=== PATIENT | female | born 1960 | race Caucasian/White ===

== ENCOUNTER → 2016-07-13 | Outpatient (CLI) | payer OTHER ==
[~2016-07-13] MED LIST: /AUGM875TA OR; ACET65TA OR; IBUP600T OR; INTERFERON; NICORETTE PO; RIBAPOW11 PO
--- NOTE | 2016-07-14 02:15 | REP ---
Clinical: Trauma. Technique: AP, lateral, bilateral oblique views. Findings: The osseous structures and joint spaces are intact and relatively normal for age. Mild degenerative changes involving the interphalangeal joints predominantly in the PIP and DIP as well as third and fourth PIP joints noted. There is no evidence for acute fracture or dislocation. Surrounding soft tissues are unremarkable. No subcutaneous emphysema or radiodense foreign body. Impression: No acute or obvious healed fracture or dislocation. Mild degenerative changes suggested involving the interphalangeal joints. Signed by Matthew Roberto MD 07/14/2016 02:07 A
== END ==
LOC: M WUC 12:16
PROVIDERS: ATTEND Family Medicine
DX: M79.642 Pain in left hand (principal)

== ENCOUNTER → 2016-07-17 | Outpatient (CLI) | payer OTHER ==
--- NOTE | 2016-07-17 09:20 | REPMRS ---
Patient History The patient states she has not had a clinical breast exam in over a year. Patient is postmenopausal. No known family history of cancer. Took hormonal contraceptives for 10 years. Digital Woman Screen Mammo: July 17, 2016 - Exam #: [id number] Bilateral CC and MLO view(s) were taken. Technologist: Dariela Lim, Technologist Prior study comparison: November 24, 2014, digital woman screen mammo performed at [facility]. May 16, 2012, bilateral bilat screen digital mammo, performed at [facility] ([facility] FINDINGS: There are scattered fibroglandular densities. There has been no change in the appearance of the mammogram from the prior studies. There is a mild amount of residual fibroglandular tissue which is fairly symmetric. There is no interval development of dominant mass, architectural distortion, or clustered microcalcification suggestive of malignancy. ASSESSMENT: BI-RADS/ACR category 1 mammogram. Negative. Recommendation Routine screening mammogram in 1 year (for women over age 40). This mammogram was interpreted with the aid of an FDA-approved computer-aided dectection system. Electronically Signed By: Nestor Chance MD 07/17/16 0919
== END ==
LOC: M WHC 08:32
PROVIDERS: ATTEND Family Medicine
DX: Z12.31 Encounter for screening mammogram for malignant neoplasm of breast (principal)

== ENCOUNTER 2016-11-22 06:15 | Emergency (ER) | payer OTHER ==
[~2016-11-22] VITALS: Ht 170.2 cm; Wt 86.0 kg
[2016-11-22 06:33] VITALS: BP 149/70
[2016-11-22] MEDS ORDERED: IBUP-1022 PO (06:48)
[2016-11-22] MEDS ORDERED: AUGM875T28 PO (06:48)
[2016-11-22] MEDS ORDERED: ACETAMINOPHEN TAB 650MG DOSE (2X325MG) PO ONE (07:00)
[2016-11-22] MEDS ORDERED: IBUPROFEN 600 MG TAB PO ONE (07:00)
[2016-11-22] MEDS ORDERED: AUGMENTIN 875 MG TAB PO ONE (07:00)
== END 2016-11-22 07:07 | disposition home or self-care (01) ==
LOC: M ED 06:15
DX: K04.7 Periapical abscess without sinus (principal); F17.200 Nicotine dependence, unspecified, uncomplicated

== ENCOUNTER → 2017-01-16 | Outpatient (CLI) | payer OTHER ==
[~2017-01-16] MED LIST changes: +AUGM875T28 PO; +IBUP-1022 PO
[2017-01-16 18:27] LABS: FREE T4 1.08 NG/DL (0.76-1.46)
== END ==
LOC: M WUC 10:58
PROVIDERS: ATTEND Family Medicine
DX: E32.9 Disease of thymus, unspecified (principal)

== ENCOUNTER → 2017-01-16 | Outpatient (CLI) | payer OTHER ==
[2017-01-16 17:44] LABS: ALBUMIN 4.4 GM/DL (3.2-5.2); ALBUMIN/GLOBULIN RATIO 1.29 (1.00-1.93); ALKALINE PHOSPHATASE 110 U/L (45-117); ALT/SGPT 20 U/L (12-78); ANION GAP 9 MEQ/L (8-16); AST/SGOT 11 U/L (15-37); BILIRUBIN,TOTAL 0.7 MG/DL (0.2-1.0); BLOOD UREA NITROGEN 6 MG/DL (7-18); CALCIUM LEVEL 8.5 MG/DL (8.5-10.1); CARBON DIOXIDE LEVEL 24 MEQ/L (21-32); CHLORIDE LEVEL 109 MEQ/L (98-107); CHOLESTEROL LEVEL 208 MG/DL (<200); CREATININE FOR GFR 0.68 MG/DL (0.55-1.02); GLOMERULAR FILTRATION RATE > 60.0 (>51); GLUCOSE, FASTING 86 MG/DL (70-105); POTASSIUM SERUM 3.9 MEQ/L (3.5-5.1); SODIUM LEVEL 142 MEQ/L (136-145); TOTAL PROTEIN 7.8 GM/DL (6.4-8.2); TRIGLYCERIDES LEVEL 195 MG/DL (<150)
[2017-01-16 18:07] LABS: MEAN CORPUSCULAR HEMOGLOBIN 31.4 pg (27.0-33.0); MEAN CORPUSCULAR HGB CONC 33.8 g/dl (32.0-36.5); MEAN CORPUSCULAR VOLUME 92.9 fl (80.0-96.0); WHITE BLOOD COUNT 9.3 K/mm3 (4.0-10.0)
[2017-01-19 10:32] LABS: HEPATITIS C QUANTITATION HCV Not Detected IU/mL (.)
== END ==
LOC: M WUC 11:01
PROVIDERS: ATTEND Family Medicine
DX: E78.4 Other hyperlipidemia (principal)

== ENCOUNTER → 2017-10-11 | Outpatient (REF) | payer OTHER ==
[2017-10-11 20:07] LABS: HEMATOCRIT 46.4 % (36.0-47.0); HEMOGLOBIN 15.8 g/dl (12.0-15.5); MEAN CORPUSCULAR HEMOGLOBIN 30.9 pg (27.0-33.0); MEAN CORPUSCULAR HGB CONC 34.1 g/dl (32.0-36.5); MEAN CORPUSCULAR VOLUME 90.8 fl (80.0-96.0); PLATELET COUNT, AUTOMATED 211 10^3/uL (150-450); RED BLOOD COUNT 5.11 10^6/uL (4.00-5.40); RED CELL DISTRIBUTION WIDTH 13.1 % (11.5-14.5); WHITE BLOOD COUNT 9.6 10^3/uL (4.0-10.0)
[2017-10-11 20:22] LABS: TOTAL 25(OH) VITAMIN D 10.5 NG/ML (30.0-100.0); VITAMIN B12 LEVEL 411 PG/ML
[2017-10-11 20:38] LABS: ALBUMIN 4.2 GM/DL (3.2-5.2); ALKALINE PHOSPHATASE 109 U/L (45-117); ALT/SGPT 18 U/L (12-78); ANION GAP 10 MEQ/L (8-16); AST/SGOT 11 U/L (7-37); BILIRUBIN,TOTAL 0.5 MG/DL (0.2-1.0); BLOOD UREA NITROGEN 7 MG/DL (7-18); CALCIUM LEVEL 9.2 MG/DL (8.5-10.1); CARBON DIOXIDE LEVEL 26 MEQ/L (21-32); CHLORIDE LEVEL 108 MEQ/L (98-107); CREATININE FOR GFR 0.71 MG/DL (0.55-1.30); FREE T4 0.89 NG/DL (0.76-1.46); GLOMERULAR FILTRATION RATE > 60.0 (>51); GLUCOSE, FASTING 79 MG/DL (70-100); POTASSIUM SERUM 4.1 MEQ/L (3.5-5.1); SODIUM LEVEL 144 MEQ/L (136-145); TOTAL PROTEIN 7.7 GM/DL (6.4-8.2)
[2017-10-12 12:12] LABS: FOLATE 12.2 NG/ML
== END ==
LOC: M SFHCADAM 17:02
DX: I73.9 Peripheral vascular disease, unspecified (principal); G62.9 Polyneuropathy, unspecified; J35.9 Chronic disease of tonsils and adenoids, unspecified
CPT/HCPCS: 82746

== ENCOUNTER → 2017-12-10 | Outpatient (CLI) | payer MEDICAID, OTHER, SELFPAY | LOC: M RAD 12:46 | DX: I70.213 Atherosclerosis of native arteries of extremities with intermittent claudication, bilateral legs (principal); F17.218 Nicotine dependence, cigarettes, with other nicotine-induced disorders | CPT/HCPCS: 93925 ==

== ENCOUNTER → 2018-01-02 | Outpatient (CLI) | payer MEDICAID ==
[~2018-01-02] MED LIST changes: -/AUGM875TA OR; -ACET65TA OR; -AUGM875T28 PO; +HEPARIN 1,000 UNITS/ML 10ML VIAL (FOR RADIOLOGY& DIALYSIS ONLY) As Ordered; -IBUP-1022 PO; -IBUP600T OR; -INTERFERON; +ISOVUE-300 61% 50ML VIAL (Q9967) As Ordered; +MIDAZOLAM INJ 2 MG/2 ML VIAL (J2250) As Ordered; -NICORETTE PO; -RIBAPOW11 PO; +fentaNYL 100 MCG/2 ML INJECTION (J3010) As Ordered
== END ==
LOC: M IRPRO 07:07
DX: Z53.8 Procedure and treatment not carried out for other reasons (principal)

== ENCOUNTER → 2018-01-07 | Outpatient (CLI) | payer MEDICAID ==
[~2018-01-07] MED LIST changes: -HEPARIN 1,000 UNITS/ML 10ML VIAL (FOR RADIOLOGY& DIALYSIS ONLY) As Ordered; -ISOVUE-300 61% 50ML VIAL (Q9967) As Ordered; +ISOVUE-370 76% 100ML VIAL (Q9967) As Ordered; -MIDAZOLAM INJ 2 MG/2 ML VIAL (J2250) As Ordered; -fentaNYL 100 MCG/2 ML INJECTION (J3010) As Ordered
== END ==
LOC: M RAD 13:43
DX: R22.1 Localized swelling, mass and lump, neck (principal)
CPT/HCPCS: Q9967

== ENCOUNTER → 2018-01-31 | Outpatient (CLI) | payer MEDICARE ==
[2018-01-31 19:00] LABS: BASO # 0.1 10^3/uL (0.0-0.2); BASO % 0.3 % (0.0-1.0); HEMATOCRIT 47.3 % (36.0-47.0); HEMOGLOBIN 15.6 g/dl (12.0-15.5); IMMATURE GRANULOCYTE % 0.6 % (0-3.0); LYMPH % 9.9 % (24.0-44.0); MEAN CORPUSCULAR HEMOGLOBIN 30.8 pg (27.0-33.0); MEAN CORPUSCULAR VOLUME 93.5 fl (80.0-96.0); MONO # 1.7 10^3/uL (0.0-0.8); MONO % 8.5 % (0.0-5.0); NEUTROPHILS # 16.4 10^3/uL (1.8-7.7); NEUTROPHILS % 80.7 % (36.0-66.0); PLATELET COUNT, AUTOMATED 221 10^3/uL (150-450); RED BLOOD COUNT 5.06 10^6/uL (4.00-5.40); RED CELL DISTRIBUTION WIDTH 12.9 % (11.5-14.5); WHITE BLOOD COUNT 20.3 10^3/uL (4.0-10.0)
[2018-01-31 19:11] LABS: ALBUMIN 4.4 GM/DL (3.2-5.2); ALBUMIN/GLOBULIN RATIO 1.19 (1.00-1.93); ALKALINE PHOSPHATASE 111 U/L (45-117); ALT/SGPT 19 U/L (12-78); AMYLASE 31 U/L (25-115); ANION GAP 13 MEQ/L (8-16); AST/SGOT 19 U/L (7-37); BILIRUBIN,TOTAL 0.9 MG/DL (0.2-1.0); BLOOD UREA NITROGEN 11 MG/DL (7-18); CALCIUM LEVEL 9.4 MG/DL (8.5-10.1); CARBON DIOXIDE LEVEL 23 MEQ/L (21-32); CHLORIDE LEVEL 102 MEQ/L (98-107); CREATININE FOR GFR 0.74 MG/DL (0.55-1.30); GLOMERULAR FILTRATION RATE > 60.0 (>51); GLUCOSE, FASTING 101 MG/DL (70-100); LIPASE 108 U/L (73-393); POTASSIUM SERUM 4.1 MEQ/L (3.5-5.1); SODIUM LEVEL 138 MEQ/L (136-145); TOTAL PROTEIN 8.1 GM/DL (6.4-8.2)
== END ==
LOC: M WUC 11:55
DX: R50.9 Fever, unspecified (principal)
CPT/HCPCS: 82150

== ENCOUNTER → 2018-02-01 | Outpatient (CLI) | payer MEDICARE ==
[2018-02-01 18:31] LABS: BASO % 0.1 % (0.0-1.0); HEMATOCRIT 44.7 % (36.0-47.0); HEMOGLOBIN 15.1 g/dl (12.0-15.5); IMMATURE GRANULOCYTE % 0.5 % (0-3.0); LYMPH # 1.3 10^3/uL (1.5-4.5); LYMPH % 6.1 % (24.0-44.0); MEAN CORPUSCULAR HEMOGLOBIN 30.7 pg (27.0-33.0); MEAN CORPUSCULAR HGB CONC 33.8 g/dl (32.0-36.5); MEAN CORPUSCULAR VOLUME 90.9 fl (80.0-96.0); MONO # 0.8 10^3/uL (0.0-0.8); MONO % 3.8 % (0.0-5.0); NEUTROPHILS # 18.6 10^3/uL (1.8-7.7); NEUTROPHILS % 89.5 % (36.0-66.0); PLATELET COUNT, AUTOMATED 261 10^3/uL (150-450); RED BLOOD COUNT 4.92 10^6/uL (4.00-5.40); RED CELL DISTRIBUTION WIDTH 12.6 % (11.5-14.5); WHITE BLOOD COUNT 20.7 10^3/uL (4.0-10.0)
[2018-02-01 19:08] LABS: ALBUMIN 4.3 GM/DL (3.2-5.2); ALBUMIN/GLOBULIN RATIO 1.05 (1.00-1.93); ALKALINE PHOSPHATASE 103 U/L (45-117); ALT/SGPT 23 U/L (12-78); ANION GAP 10 MEQ/L (8-16); AST/SGOT 18 U/L (7-37); BILIRUBIN,TOTAL 0.6 MG/DL (0.2-1.0); BLOOD UREA NITROGEN 16 MG/DL (7-18); CALCIUM LEVEL 9.6 MG/DL (8.5-10.1); CARBON DIOXIDE LEVEL 26 MEQ/L (21-32); CHLORIDE LEVEL 103 MEQ/L (98-107); GLOMERULAR FILTRATION RATE > 60.0 (>51); GLUCOSE, FASTING 121 MG/DL (70-100); POTASSIUM SERUM 3.9 MEQ/L (3.5-5.1); SODIUM LEVEL 139 MEQ/L (136-145); TOTAL PROTEIN 8.4 GM/DL (6.4-8.2)
== END ==
LOC: M WUC 12:50
DX: J18.9 Pneumonia, unspecified organism (principal)
CPT/HCPCS: 80053

== ENCOUNTER → 2018-02-04 | Outpatient (CLI) | payer OTHER, MEDICARE ==
[~2018-02-04] MED LIST changes: +ISOVUE-300 61% 50ML VIAL (Q9967) As Ordered; -ISOVUE-370 76% 100ML VIAL (Q9967) As Ordered; +LIDOCAINE 2% MDV 20 ML VIAL As Ordered; +MIDAZOLAM INJ 2 MG/2 ML VIAL (J2250) As Ordered; +fentaNYL 100 MCG/2 ML INJECTION (J3010) As Ordered
== END | disposition home or self-care (01) ==
LOC: M IRPRO 06:29
DX: Z53.8 Procedure and treatment not carried out for other reasons (principal)

== ENCOUNTER → 2018-02-19 | Outpatient (CLI) | payer OTHER ==
[2018-02-19 07:20] LABS: HEMOGLOBIN 14.4 g/dl (12.0-15.5)
== END ==
LOC: M CARPUL 06:35
DX: R91.8 Other nonspecific abnormal finding of lung field (principal)
CPT/HCPCS: 94060

== ENCOUNTER → 2018-02-22 | Outpatient (CLI) | payer OTHER ==
[~2018-02-22] MED LIST changes: +HEPARIN 1,000 UNITS/ML 10ML VIAL (FOR RADIOLOGY& DIALYSIS ONLY) As Ordered
== END | disposition home or self-care (01) ==
LOC: M IRPRO 06:58
DX: I70.211 Atherosclerosis of native arteries of extremities with intermittent claudication, right leg (principal); I73.9 Peripheral vascular disease, unspecified
CPT/HCPCS: 37224

== ENCOUNTER → 2018-03-04 | Outpatient (CLI) | payer OTHER | LOC: M RAD 07:56 | DX: R91.8 Other nonspecific abnormal finding of lung field (principal) | CPT/HCPCS: 71250 ==

== ENCOUNTER → 2018-03-06 | Outpatient (REF) | payer OTHER ==
[2018-03-06 13:24] LABS: PLATELET COUNT, AUTOMATED 247 10^3/uL (150-450)
[2018-03-06 13:34] LABS: INR 1.01; PROTHROMBIN TIME 13.4 SECONDS (12.1-14.4)
[2018-03-06 13:35] LABS: PARTIAL THROMBOPLASTIN TIME 31.3 SECONDS (25.4-37.6)
== END ==
LOC: M LAB REF 12:57
DX: R91.8 Other nonspecific abnormal finding of lung field (principal)
CPT/HCPCS: 85049

== ENCOUNTER → 2018-03-07 | Outpatient (CLI) | payer OTHER ==
[~2018-03-07] MED LIST changes: -HEPARIN 1,000 UNITS/ML 10ML VIAL (FOR RADIOLOGY& DIALYSIS ONLY) As Ordered; -ISOVUE-300 61% 50ML VIAL (Q9967) As Ordered; +LIDOCAINE 1% MDV 20ML VIAL As Ordered; -LIDOCAINE 2% MDV 20 ML VIAL As Ordered; -MIDAZOLAM INJ 2 MG/2 ML VIAL (J2250) As Ordered; -fentaNYL 100 MCG/2 ML INJECTION (J3010) As Ordered
== END ==
LOC: M RADPRO 11:21
DX: C34.92 Malignant neoplasm of unspecified part of left bronchus or lung (principal)
CPT/HCPCS: 32405

== ENCOUNTER → 2018-03-20 | Outpatient (CLI) | payer OTHER | LOC: M RAD 07:37 | DX: I70.301 Unspecified atherosclerosis of unspecified type of bypass graft(s) of the extremities, right leg (principal) | CPT/HCPCS: 93926 ==

== ENCOUNTER 2018-03-28 11:08 | Day surgery (SDC) | payer OTHER ==
[~2018-03-28 11:08] MED LIST changes: -LIDOCAINE 1% MDV 20ML VIAL As Ordered; +LIDOCAINE 1% MDV 20ML VIAL SQ; +MUPIROCIN 2% OINT 22 GM TUBE TOP
[2018-03-28] MEDS: LR 1,000 ML IV (11:55)
[2018-03-28] MEDS ORDERED: HEPARIN SOD (PORCINE) 5000 UNITS/ML VIAL As Ordered (12:19)
[2018-03-28] MEDS ORDERED: PROPOFOL 500 MG/50 ML VIAL As Ordered (12:21)
[2018-03-28] MEDS ORDERED: LIDOCAINE 2% INJ 100 MG/5 ML SDV (FOR ANES.) As Ordered (12:21)
[2018-03-28] MEDS ORDERED: ONDANSETRON 4MG/2ML VIAL (J2405) As Ordered (12:21)
[2018-03-28] MEDS ORDERED: fentaNYL 100 MCG/2 ML INJECTION (J3010) As Ordered (12:21)
[2018-03-28] MEDS ORDERED: dexameTHASONE 4 MG/ML 1ML VIAL (J1100) As Ordered (12:21)
[2018-03-28] MEDS ORDERED: MIDAZOLAM INJ 2 MG/2 ML VIAL (J2250) As Ordered (12:21)
[2018-03-28] MEDS: BUPIVACAINE LIPOSOME/PF 1.3% 20ML VIAL (13.3MG/ML)(EXPAREL)(C9290 PER1MG) As Ordered (14:01)
[2018-03-28] MEDS: LIDOCAINE 1% SDV INJ 30 ML VIAL As Ordered (14:02)
== END 2018-03-28 15:00 | disposition home or self-care (01) ==
LOC: M SDC 11:08
DX: C34.12 Malignant neoplasm of upper lobe, left bronchus or lung (principal); Z45.2 Encounter for adjustment and management of vascular access device; F17.210 Nicotine dependence, cigarettes, uncomplicated; I70.213 Atherosclerosis of native arteries of extremities with intermittent claudication, bilateral legs; Z79.899 Other long term (current) drug therapy; F32.9 Major depressive disorder, single episode, unspecified; F41.9 Anxiety disorder, unspecified
CPT/HCPCS: 36561

== ENCOUNTER → 2018-03-28 | Outpatient (CLI) | payer OTHER, MEDICAID | LOC: M ONCR 07:56 | DX: C34.02 Malignant neoplasm of left main bronchus (principal) | CPT/HCPCS: 99201 ==

== ENCOUNTER 2018-04-01 08:55 | Outpatient (RCR) | payer OTHER ==
[~2018-04-01 08:55] MED LIST changes: +/AUGM875TA OR; +ACET65TA OR; +AUGM875T28 PO; +IBUP-1022 PO; +IBUP600T OR; +INTERFERON; -LIDOCAINE 1% MDV 20ML VIAL SQ; -MUPIROCIN 2% OINT 22 GM TUBE TOP; +NICORETTE PO; +RIBAPOW11 PO; +SERT-155 PO
--- NOTE | 2018-04-02 12:26 | RADONC ---
RADIATION ONCOLOGY SIMULATION NOTE DATE: 04/01/2018 CHART NUMBER: [id number] SIMULATION NOTE: Ms. Turcios was taken to the CT scan for CT simulation of her lung field. CT was accomplished without difficulty or discomfort. Radiation treatment planning is underway and further discussion will be following. An immobilization device was created and was done without difficulty or discomfort. It will be used throughout the course of treatment. I was physically present throughout the course of CT simulation.
--- NOTE | 2018-04-08 10:26 | RADONC ---
RADIATION ONCOLOGY PROGRESS NOTE DATE: 04/04/2018 CHART NUMBER: [id number] DIAGNOSIS: Small cell lung carcinoma. STAGE: Extensive. ECOG PERFORMANCE STATUS: 0 PROGRESS NOTE: Ms. Turcios is a very pleasant, unfortunate, 57-year-old white female with the diagnosis of extensive stage small-cell lung carcinoma, who initially presented to me on 03/28/2018 for discussion of her possible therapeutic options. Since that time, we have undertaken a CT scan of the abdomen and pelvis, which showed multiple low density liver lesions as well as mild periaortic and pericaval retroperitoneal lymphadenopathy. In addition, we ran a treatment planning session to see whether or not we would be able to incorporate her disease volume safely in the thoracic region. We have an MRI of the brain, which was done, which showed no evidence of metastatic disease and a differential lung scan, which was quite favorable to future planning for thoracic consolidative radiation. I called the patient today to discuss the findings of her study and to confirm her appointment with Dr. Lainez, in [place], on Sunday, at 10:30 a.m. I have informed her that she needs to be seen there so that she can initiate chemotherapy without delay. I have asked the patient to contact me following her appointment if she wishes to return here for her systemic therapy and let her know that our medical oncology service has set her up for initiation of treatment on Sunday next week if she so desires. At this time, the patient's primary treatment modality would be systemic therapy, and therefore, I have not set her up for a definitive followup visit in our office. I let her know that once systemic therapy is complete, if they deem her to be a candidate for radiation, they will be referring her back to us for re-consultation, discussion and initiation of treatment planning. The patient has my phone number here and I let her know that we are available to her at anytime if she has any questions or if we could be of any assistance whatsoever. We would be more than glad to see her for any reason in the future. I hope we have been of some benefit to this very pleasant woman. I know she will be in good hands at [facility] and I suspect she will be starting her treatment without delay next week. cc: MD Mecca Gutierrez MD Robert Johnson, MD Lawrence Kramer, MD Regina Wetterhahn, PA-C
== END 2018-04-29 ==
LOC: M ONCR 08:55
PROVIDERS: ATTEND Radiology Radiation Oncology
DX: C34.02 Malignant neoplasm of left main bronchus (principal); C77.1 Secondary and unspecified malignant neoplasm of intrathoracic lymph nodes

== ENCOUNTER → 2018-04-02 | Outpatient (CLI) | payer OTHER ==
[~2018-04-02] MED LIST changes: -/AUGM875TA OR; -ACET65TA OR; -AUGM875T28 PO; +GASTROGRAFIN SOLUTION 30ML (Q9963) As Ordered; -IBUP-1022 PO; -IBUP600T OR; -INTERFERON; +ISOVUE-370 76% 100ML VIAL (Q9967) As Ordered; -NICORETTE PO; -RIBAPOW11 PO; -SERT-155 PO
== END ==
LOC: M RAD 11:22
DX: C34.92 Malignant neoplasm of unspecified part of left bronchus or lung (principal)
CPT/HCPCS: Q9963

== ENCOUNTER → 2018-04-03 | Outpatient (CLI) | payer OTHER ==
[~2018-04-03] MED LIST changes: -GASTROGRAFIN SOLUTION 30ML (Q9963) As Ordered; -ISOVUE-370 76% 100ML VIAL (Q9967) As Ordered; +PROHANCE 279.3MG/ML 15ML VIAL (A9576) As Ordered; +PROHANCE 279.3MG/ML 5ML VIAL (A9576) As Ordered
== END ==
LOC: M RAD 10:21
DX: C34.90 Malignant neoplasm of unspecified part of unspecified bronchus or lung (principal); Z97.8 Presence of other specified devices
CPT/HCPCS: A9576

== ENCOUNTER → 2018-04-04 | Outpatient (CLI) | payer OTHER | LOC: M RAD 09:40 | DX: C34.92 Malignant neoplasm of unspecified part of left bronchus or lung (principal) | CPT/HCPCS: 70553 ==

== ENCOUNTER → 2018-04-25 | Outpatient (CLI) | payer OTHER ==
[~2018-04-25] MED LIST changes: +/AUGM875TA OR; +ACET65TA OR; +AUGM875T28 PO; +IBUP-1022 PO; +IBUP600T OR; +INTERFERON; +NICORETTE PO; -PROHANCE 279.3MG/ML 15ML VIAL (A9576) As Ordered; -PROHANCE 279.3MG/ML 5ML VIAL (A9576) As Ordered; +RIBAPOW11 PO; +SERT-155 PO
[2018-04-25 15:27] LABS: BASO % 0.8 % (0.0-1.0); EOS # 0.1 10^3/uL (0.0-0.50); EOS % 1.3 % (0.0-3.0); HEMATOCRIT 37.7 % (36.0-47.0); HEMOGLOBIN 12.6 g/dl (12.0-15.5); LYMPH # 1.2 10^3/uL (1.5-4.5); LYMPH % 31.4 % (24.0-44.0); MEAN CORPUSCULAR HEMOGLOBIN 30.4 pg (27.0-33.0); MEAN CORPUSCULAR HGB CONC 33.4 g/dl (32.0-36.5); MEAN CORPUSCULAR VOLUME 91.1 fl (80.0-96.0); MONO # 0.2 10^3/uL (0.0-0.8); MONO % 3.8 % (0.0-5.0); NEUTROPHILS # 2.4 10^3/uL (1.8-7.7); NEUTROPHILS % 62.2 % (36.0-66.0); PLATELET COUNT, AUTOMATED 125 10^3/uL (150-450); RED BLOOD COUNT 4.14 10^6/uL (4.00-5.40); WHITE BLOOD COUNT 3.9 10^3/uL (4.0-10.0)
[2018-04-25 15:29] LABS: ALT/SGPT 20 U/L (12-78); BILIRUBIN,TOTAL 0.6 MG/DL (0.2-1.0); BLOOD UREA NITROGEN 14 MG/DL (7-18); CALCIUM LEVEL 8.9 MG/DL (8.5-10.1); CARBON DIOXIDE LEVEL 27 MEQ/L (21-32); CHLORIDE LEVEL 103 MEQ/L (98-107); CREATININE FOR GFR 0.62 MG/DL (0.55-1.30); GLOMERULAR FILTRATION RATE > 60.0 (>51); GLUCOSE, FASTING 93 MG/DL (70-100); SODIUM LEVEL 137 MEQ/L (136-145); TOTAL PROTEIN 7.2 GM/DL (6.4-8.2)
[2018-04-25 15:31] LABS: APPEARANCE, URINE HAZY (CLEAR); BACTERIA, URINE AUTO 1+ (NEGATIVE); BILIRUBIN, URINE AUTO NEGATIVE (NEGATIVE); BLOOD, URINE BLOOD NEGATIVE (NEGATIVE); COLOR, URINE AMBER (YELLOW); GLUCOSE, URINE (UA) AUTO NEGATIVE (NEGATIVE); KETONE, URINE AUTO NEGATIVE (NEGATIVE); LEUKOCYTE ESTERASE, URINE AUTO 3+ (NEGATIVE); MUCUS, URINE SMALL (NEGATIVE); NITRITE, URINE AUTO NEGATIVE (NEGATIVE); PROTEIN, URINE AUTO 1+ mg/dL (NEGATIVE); RBC, URINE AUTO 3 /HPF (0-3); SPECIFIC GRAVITY URINE AUTO 1.025 (1.002-1.035); SQUAMOUS EPITHELIAL CELL UR AU 2 /HPF (0-6); WBC, URINE AUTO 72 /HPF (0-3)
== END ==
LOC: M WUC 13:58
PROVIDERS: ATTEND Nurse Practitioner
DX: C34.90 Malignant neoplasm of unspecified part of unspecified bronchus or lung (principal); R30.0 Dysuria

== ENCOUNTER → 2018-05-03 | Outpatient (REF) | payer OTHER | LOC: M SFHCPLAZ 13:15 | PROVIDERS: ATTEND Nurse Practitioner Family | DX: N90.4 Leukoplakia of vulva (principal) ==

== ENCOUNTER → 2018-05-06 | Outpatient (CLI) | payer OTHER ==
[~2018-05-06] MED LIST changes: +PROHANCE 279.3MG/ML 15ML VIAL (A9576) As Ordered ONE; +PROHANCE 279.3MG/ML 5ML VIAL (A9576) As Ordered ONE
--- NOTE | 2018-05-06 12:06 | REP ---
MRI abdomen and liver without and with IV gadolinium: History: History of small cell lung carcinoma with liver lesions. Comparison CT study April 02, 2018. Comparison PET-CT March 22, 2018. Gadolinium enhancement dose: 17 ml of intravenous Isovue 370 is administered. Technique: Axial and coronal T1 and T2-weighted scans were obtained with sequences including spin echo, fast spin echo, diffusion, in and out of phase, gradient echo and dynamically acquired sequential post contrast images. Findings: MR imaging confirms the presence of multiple T2 hyperintense T1 hypointense focal liver lesions demonstrating contrast enhancement consistent with hepatic metastatic lesions. These are fairly small. The largest measures 14 mm in diameter. No splenic lesion is seen. No pancreatic mass is observed. The gallbladder is surgically absent. Portacaval lymph nodes are seen as on CT study although less well than on the CT images. No renal mass lesion is observed. There is a cyst in the lower pole of the right kidney. Study is otherwise unremarkable. Impression: Multiple left and right lobe hepatic enhancing nodules consistent with metastatic disease. Electronically Signed by Hector Vernon MD 05/06/2018 11:58 A
== END ==
LOC: M RAD 10:22
PROVIDERS: ATTEND Internal Medicine Hematology & Oncology
DX: Z85.118 Personal history of other malignant neoplasm of bronchus and lung (principal); K76.89 Other specified diseases of liver
CPT/HCPCS: 74183; A9576

== ENCOUNTER → 2018-06-12 | Outpatient (CLI) | payer OTHER ==
[~2018-06-12] MED LIST changes: +GASTROGRAFIN SOLUTION 30ML (Q9963) As Ordered ONE; +ISOVUE-370 76% 100ML VIAL (Q9967) As Ordered ONE; -PROHANCE 279.3MG/ML 15ML VIAL (A9576) As Ordered ONE; -PROHANCE 279.3MG/ML 5ML VIAL (A9576) As Ordered ONE
--- NOTE | 2018-06-12 16:15 | REP ---
CT of the chest with IV contrast: Comparison is 03/04/2018. The previous large left hilar mass is no longer identified. The previous large bulky anterior mediastinal adenopathy has almost entirely resolved with only a small residual persisting. The previous 1 cm pleural-based nodule in the right lower lobe is no longer present. The previous irregular pleural-based nodular/five by density in the right upper lobe is unchanged. There are no new nodules or masses. There are no infiltrates or effusions. There is no mediastinal or hilar lymph node enlargement. No axillary lymph node enlargement. Thoracic aorta is unremarkable. Cardiac size is normal. The visualized upper abdominal contents are unremarkable. There is a cholecystectomy. There is no adrenal mass. There are no lytic, blastic or destructive skeletal changes. Impression: The large left hilar mass has resolved. The bulky anterior mediastinal adenopathy has resolved. The right lower lobe pleural-based nodule has resolved. The pleural-based irregular nodular/fibrotic density in the right upper lobe is unchanged. There are no other interval changes. Electronically Signed by Nestor Wakefield MD 06/12/2018 04:06 P
--- NOTE | 2018-06-12 16:24 | REP ---
CT of the abdomen and pelvis with IV and bowel contrast: Comparison is 04/02/2018. There are a few small low density liver lesion, however, these have decreased in number. There is a cholecystectomy. The celiac axis and periaortic/pericaval mild retroperitoneal adenopathy has not significantly changed. The pancreas, spleen, adrenals and kidneys are unremarkable and unchanged. The bowel and mesentery are unchanged., except for mild wall thickening of the sigmoid colon compatible with colitis in the appropriate clinical setting. Pelvis: The bladder, uterus and adnexa are unremarkable. There is no ascites. There is no adenopathy. The pelvic bowel loops are unremarkable. There are no lytic, blastic or destructive skeletal lesions. Impression: The low density liver lesions have decreased in number. The celiac axis and periaortic/pericaval adenopathy has not significantly changed. There are no other significant changes. Electronically Signed by Nestor Wakefield MD 06/12/2018 04:16 P
== END ==
LOC: M RAD 12:30
PROVIDERS: ATTEND Internal Medicine Hematology & Oncology
DX: C34.90 Malignant neoplasm of unspecified part of unspecified bronchus or lung (principal); Z92.21 Personal history of antineoplastic chemotherapy
CPT/HCPCS: 71260; 74177; Q9963; Q9967

== ENCOUNTER → 2018-09-04 | Outpatient (CLI) | payer OTHER ==
[~2018-09-04] MED LIST changes: +EMLA CREAM 5GM (LIDOCAINE/PRILOCAINE) As Ordered ONE
--- NOTE | 2018-09-05 09:48 | REP ---
CT STUDY OF THE CHEST WITH IV CONTRAST: HISTORY: Restaging examinations, small cell lung carcinoma. Status post chemotherapy. Comparison CT studies are reviewed from June 12, 2018 and March 04, 2018. There is a somewhat fibrotic appearing 10 mm density in the right upper lobe anteriorly which is unchanged from both prior studies. There is minimal soft tissue streaking within the left anterior mediastinal fat. This soft tissue streaking is yet again improved when compared with the June 12 2018 prior study. There is no residual mediastinal mass. There is no evidence of recurrent hilar adenopathy or recurrent pulmonary nodule. No pleural effusion is seen. No pericardial effusion is noted. No filling defect is seen in the pulmonary arterial tree. Mild atherosclerotic changes are seen in the thoracic aorta. No adrenal lesion is observed. Gallbladder is surgically absent. On bone window settings, there is no bony destructive lesion seen. IMPRESSION: The neoplastic disease evident in the chest on the March 04, 2018 study has virtually completely regressed. There is a small amount residual streaking in the anterior mediastinal fat along its the left contour, less than a centimeter in thickness. This is shows improvement from June 12, 2018 study. No new abnormality. Electronically Signed by Hector Vernon MD 09/05/2018 01:06 P
--- NOTE | 2018-09-05 10:15 | REP ---
CT abdomen and pelvis with IV and oral contrast: History: Small cell lung carcinoma. Post chemotherapy. Comparison CT studies are reviewed from June 12, 2018 and April 02, 2018. CT contrast dose: 100 mL of intravenous Isovue 370. 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 There are clips in right upper quadrant. There is an arterial vascular stent in the distribution of the right external iliac artery. Previously noted low-density metastatic liver lesions are no longer apparent. No new liver lesion is appreciated. The spleen is normal in size and unchanged in texture. There is a small subcentimeter low density splenic lesion consistent with a cyst unchanged. Upper abdominal lymph nodes are again seen most prominent of which is a periportal lymph node. This measures 12 mm in short axis dimension today, 15-16 mm on April 02, 2018. It is unchanged from the June 12, 2018 study. No new adenopathy is seen. Small normal-sized periaortic lymph nodes are seen unchanged. No new retroperitoneal adenopathy is seen. No pancreatic lesion is seen. The kidneys enhance symmetrically and are morphologically intact. There is a subcentimeter cyst in the lower pole right kidney. Normal appendix is seen. No pelvic mass or adenopathy is observed. No uterine or ovarian abnormality is seen. Urinary bladder is intact. No abdominal wall defect is appreciated. Bone window settings show no bony destructive lesion. There are degenerative changes in the lumbar spine. Impression: Stable celiac axis lymph nodes. Previously noted liver metastatic lesions are resolved by CT. No new evidence of abdominal mass or adenopathy. Electronically Signed by Hector Vernon MD 09/05/2018 01:06 P
== END ==
LOC: M RAD 11:57
PROVIDERS: ATTEND Internal Medicine Hematology & Oncology
DX: Z85.118 Personal history of other malignant neoplasm of bronchus and lung (principal); Z85.05 Personal history of malignant neoplasm of liver
CPT/HCPCS: 71260; 74177; Q9963; Q9967

== ENCOUNTER → 2018-09-05 | Outpatient (CLI) | payer OTHER ==
[~2018-09-05] MED LIST changes: -EMLA CREAM 5GM (LIDOCAINE/PRILOCAINE) As Ordered ONE; -GASTROGRAFIN SOLUTION 30ML (Q9963) As Ordered ONE; -ISOVUE-370 76% 100ML VIAL (Q9967) As Ordered ONE
--- NOTE | 2018-09-06 09:03 | RADONC ---
RADIATION ONCOLOGY CONSULTATION NOTE DATE: 09/05/2018 CHART NUMBER: [id number] DIAGNOSIS: Small cell lung carcinoma. STAGE: Extensive. ECOG PERFORMANCE STATUS: 0. CONSULTATION NOTE: Ms. Turcios is a very pleasant 57-year-old white female with the diagnosis of extensive stage small-cell lung carcinoma who was originally seen by us on March 28, 2018 for discussion of external beam radiation therapy. Since that time the patient was found to have liver metastasis and was seen by Dr. Cynthia Lainez MD in [place] and has initiated systemic therapy consisting of carboplatin plus etoposide plus atezolizumab. The patient has done quite well on her chemotherapy and indeed reports a complete to near complete response to all her tumor sites. She has spoken with Dr. Lainez and is now seeing us to discuss prophylactic cranial irradiation. PAST MEDICAL HISTORY: The patient's past medical history is positive for hepatitis C. ALLERGIES: The patient has no known drug allergies. SOCIAL HISTORY: The patient had smoked one pack of cigarettes per day for 43 years. She does not abuse alcohol. FAMILY HISTORY: The patient's family history is negative for lung cancer or other malignancies. REVIEW OF SYSTEMS: The patient's review of systems is noncontributory. She denies nausea, vomiting, fevers, chills, night sweats, diplopia, headaches, anxiety or depression, anorexia, weight loss, visual disturbances, chest pain, urinary or bowel difficulties, bone pain, or neurological problems. PHYSICAL EXAMINATION: The patient is a well-developed, well-nourished, female in no acute distress. HEENT exam is normocephalic, atraumatic. Extraocular movements are intact. There is no palpable cervical, supraclavicular, infraclavicular, axillary, or inguinal lymphadenopathy present. Lungs are clear to auscultation and percussion. Heart has a regular rate and rhythm. Abdomen is benign with no hepatosplenomegaly, masses, or tenderness. Skeletal examination reveals no tenderness to pressure or percussion of the bony skeleton. Extremities reveal no clubbing, cyanosis, or edema. Neurologic exam is grossly intact, as is the remainder of the physical examination. ASSESSMENT: I had a very lengthy discussion with this patient with regards to prophylactic cranial radiation. We discussed the clinical studies as well as potential benefits and possible acute and chronic sequelae of external beam radiation therapy. We discussed in detail the reasoning behind offering prophylactic cranial irradiation. In addition her last MRI of the brain was done 6 months ago. In light of this I am ordering a new MRI of the brain to be undertaken. In patients with small-cell lung carcinoma as the patient is aware there is a high likelihood of developing brain metastasis. Should there be anything found in the brain the dose and fractionation of radiation would be different than that for prophylactic cranial radiation. Therefore if the patient is considering radiation I wish to evaluate her at this time to make sure there is no evidence of actual metastatic disease. I did explain to the patient that clearly if there are mets present in the brain then this is a clear and easy decision to treat this. If however the patient appears to have achieved a complete response to her treatments and the brain is clear than her decision needs to be made with regards to preventative prophylactic brain radiation. That of course is a more difficult decision and I have reassured the patient that she really cannot make a wrong decision and that the decision is quite personal. I have in addition placed this patient on our list for discussion at our multidisciplinary tumor conference which will be about 2 weeks' time. She is scheduled see Dr. Lainez to further discuss her CT findings of the CTs done yesterday as well as the next steps and prophylactic radiation as well. She is scheduled see Dr. Lainez on August 18. I have scheduled the patient to return to me after her visit with Dr. Lainez as well as her MRI so that she can make the final decision with regards to her treatment options. We are available at anytime to this very pleasant woman in the meantime. Thank you for allowing us to participate in the care of Ms. Turcios, I look forward to working with you closely and will keep you informed as any new decisions as they occur. cc: MD Mecca Gutierrez MD Robert Johnson, MD Lawrence Kramer, MD Regina Wetterhahn, PA-C
== END ==
LOC: M ONCR 08:49
PROVIDERS: ATTEND Radiology Radiation Oncology
DX: C77.1 Secondary and unspecified malignant neoplasm of intrathoracic lymph nodes (principal); C34.02 Malignant neoplasm of left main bronchus

== ENCOUNTER → 2018-12-06 | Outpatient (CLI) | payer OTHER ==
[~2018-12-06] MED LIST changes: +GASTROGRAFIN SOLUTION 30ML (Q9963) As Ordered ONE; +ISOVUE-370 76% 100ML VIAL (Q9967) As Ordered ONE
--- NOTE | 2018-12-06 17:42 | REPVR ---
EXAM: CT Chest With Contrast EXAM DATE/TIME: 12/06/2018 5:17 PM CLINICAL HISTORY: 58 years old, female; Condition or disease; Lung condition and disease; Cancer of the lung; Bilateral; Unspecified; Additional info: Restage lung CA TECHNIQUE: Imaging protocol: Axial computed tomography images of the chest with intravenous contrast. Coronal and sagittal reformatted images were created and reviewed. Radiation optimization: All CT scans at this facility use at least one of these dose optimization techniques: automated exposure control; mA and/or kV adjustment per patient size (includes targeted exams where dose is matched to clinical indication); or iterative reconstruction. Contrast material: ISOVUE 370; Contrast volume: 100 ml; Contrast route: IV COMPARISON: CT Chest with contrast 09/04/2018 1:55 PM FINDINGS: No thoracic aortic aneurysm or dissection. Small mediastinal lymph nodes measure up to 8 mm short axis, unchanged. New occurrence of anterior mediastinal mass to the left of midline measuring 5.3 x 3.6 cm, with craniocaudal measurement of 5.8 cm. This was not present on the CT from 09/04/2018. No other concerning lung lesion. No evidence of hematogenous lung metastases. No adrenal or upper abdominal mass. Gallbladder is surgically absent. Bony structures are unremarkable except for thoracic degenerative disc disease. No pleural effusion or pneumothorax. Pulmonary vascular/interstitial pattern does not suggest active pulmonary edema. No cardiac enlargement or pericardial effusion. No central endobronchial lesion. IMPRESSION: New or recurrent anterior mediastinal mass to the left of midline measuring 5.3 x 3.6 x 5.8 cm, with appearance highly suggestive of malignancy. No other new abnormality. Electronically signed by: Desean Rod On 12/06/2018 17:42:39 PM
--- NOTE | 2018-12-06 17:48 | REPVR ---
EXAM: CT Abdomen and Pelvis With Contrast EXAM DATE/TIME: 12/06/2018 5:17 PM CLINICAL HISTORY: 58 years old, female; Condition or disease; Cancer; Other: Lung; Additional info: Restage lung CA TECHNIQUE: Imaging protocol: Axial computed tomography images of the abdomen and pelvis with intravenous contrast. Coronal and sagittal reformatted images were created and reviewed. Radiation optimization: All CT scans at this facility use at least one of these dose optimization techniques: automated exposure control; mA and/or kV adjustment per patient size (includes targeted exams where dose is matched to clinical indication); or iterative reconstruction. Contrast material: ISOVUE 370;Contrast volume: 100 ml;Contrast route: IV; COMPARISON: CT ABD PELVIS WITH CONTRAST 09/04/2018 1:55 PM FINDINGS: Liver: Liver appears normal with no focal abnormality. Gallbladder and bile ducts: Gallbladder is surgically absent. Pancreas: Pancreas appears normal. No focal mass or peripancreatic inflammation. Spleen: Spleen appears homogeneous without focal mass. Adrenals: Adrenal glands are normal in appearance. Kidneys and ureters: Kidneys appear normal, with no stone, solid mass or hydronephrosis. Stomach and bowel: No evidence of small bowel obstruction. No evidence of acute diverticulitis. Appendix: Normal caliber appendix is identified, with no adjacent inflammation. Intraperitoneal space: No pneumoperitoneum. No abnormal pelvic mass. No omental or peritoneal carcinomatosis. Vasculature: Main portal and splenic veins enhance normally. Atherosclerotic change present in the aorta, without aneurysm. Lymph nodes: No enlarged lymph nodes. No abnormal pelvic sidewall lymph nodes. Bladder: Bladder appears normal. Bones/joints: Bony structures are normal except for lumbar spine degenerative disc changes. Soft tissues: Unremarkable. IMPRESSION: No acute abdominal or pelvic process and no evidence of abdominal or pelvic metastatic disease Electronically signed by: Desean Rod On 12/06/2018 17:48:09 PM
== END ==
LOC: M RAD 15:48
PROVIDERS: ATTEND Internal Medicine Hematology & Oncology
DX: C34.90 Malignant neoplasm of unspecified part of unspecified bronchus or lung (principal)
CPT/HCPCS: 71260; 74177; Q9963; Q9967

== ENCOUNTER → 2018-12-20 | Outpatient (CLI) | payer OTHER ==
[~2018-12-20] MED LIST changes: +CLOP75TA2 PO; -GASTROGRAFIN SOLUTION 30ML (Q9963) As Ordered ONE; -ISOVUE-370 76% 100ML VIAL (Q9967) As Ordered ONE; -SERT-155 PO; +SERT50TA29 PO; +VITA500045 PO
== END ==
LOC: M RAD 18:08
PROVIDERS: ATTEND Internal Medicine Hematology & Oncology
DX: C34.90 Malignant neoplasm of unspecified part of unspecified bronchus or lung (principal); Z53.9 Procedure and treatment not carried out, unspecified reason

== ENCOUNTER → 2018-12-20 | Outpatient (CLI) | payer OTHER ==
--- NOTE | 2018-12-24 15:24 | RADONC ---
RADIATION ONCOLOGY FOLLOWUP NOTE DATE: 12/20/2018 CHART NUMBER: [id number] DIAGNOSIS: Small cell lung carcinoma. STAGE: Extensive. ECOG PERFORMANCE STATUS: 0 CONSULTATION NOTE: Ms. Turcios is a 58-year-old white female with the diagnosis of extensive stage small-cell lung carcinoma who was not treated in this facility and has been undergoing systemic therapy in [place] with a doctor Cynthia Lainez MD. Overall the patient had been doing well down there with an excellent result. A restaging CT done 12/06/2018 however, showed a new occurrence of an anterior mediastinal mass to the left of the midline measuring 5.3 x 3.6 cm with a craniocaudal measurement of 5.8 cm. That was not present on a prior CT done 09/04/2018. There was no evidence of lung metastasis. Dr. Lainez subsequently adjusted the patient's systemic therapy regimen and overall she reports that she is doing well. The patient came in today letting me know that she is scheduled to be seen in [place] at [place]. The appointment for her consultation there is in 3 weeks. She reports that she will be doing all treatment down there as she has family living in [place]. She is simply here for my opinion. PAST MEDICAL HISTORY: The patient's past medical history is positive for hepatitis. ALLERGIES: The patient has NO KNOWN DRUG ALLERGIES. SOCIAL HISTORY: The patient had smoked one pack of cigarettes day for 43 years. She does not abuse alcohol. FAMILY HISTORY: The patient's family history is negative for lung cancer or other malignancies. REVIEW OF SYSTEMS: The patient's review of systems is noncontributory. Denies nausea, vomiting, fevers, chills, night sweats, diplopia, headaches, anxiety or depression, anorexia, weight loss, visual disturbances, chest pain, urinary or bowel difficulties, bone pain, or neurological problems. PHYSICAL EXAMINATION: The patient is a well-developed, well-nourished, 58-year-old white female in no acute distress. HEENT exam is normocephalic, atraumatic. Extraocular movements are intact. There is no palpable cervical, supraclavicular, infraclavicular, axillary, or inguinal lymphadenopathy present. Lungs are clear to auscultation and percussion. Heart has a regular rate and rhythm. Abdomen is benign with no hepatosplenomegaly, masses, or tenderness. Skeletal examination reveals no tenderness to pressure or percussion of the bony skeleton. Extremities reveal no clubbing, cyanosis, or edema. Neurologic exam is grossly intact, as is the remainder of the physical examination. ASSESSMENT: I had a lengthy discussion with this patient. I believe she is undergoing good care with her present medical oncologist. I let her know that we could of course treat that lesion, which I reviewed with her, with radiation therapy for thoracic consolidation. I discussed my concern that it had grown rather rapidly to almost 6 cm in the 3-month time span between the comparative CT scans. In light of the fact that she has new systemic therapy going, I think she is undergoing the correct treatment at this point. I understand that she will be getting her therapy in [place] and I have explained to her that even if we were to treat this lesion at this point with radiation it would be several weeks of treatment which she would not be able to undergo since she will not be in this state. The patient is having a the patient is having an MRI of the brain done tonight at 6 o'clock and asked if I would come in on Sunday tomorrow to review it and give further results. In light of this patient's anxiety level of the fact that rather close to the hospital. I plan on doing so. I will call her tomorrow. In the meantime, however, I suggest she continue her care with Dr. Lainez. I let her know that I am available to her if her physicians in [place] wish any information. I let her know that I am available to her if I could provide her with any assistance at this time. I have not treated this patient nor has she had been treated in this facility. I therefore do not have any significant information to add for her physicians in [place] at this point. cc: MD Mecca Gutierrez MD Robert Johnson, MD Lawrence Kramer, MD Regina Wetterhahn, PA-C
--- NOTE | 2018-12-24 15:27 | RADONC ---
RADIATION ONCOLOGY PROGRESS NOTE DATE: 12/21/2018 CHART NUMBER: [id number] PROGRESS NOTE: I came into the hospital today to review the patient's MRI of the brain as I promised to do. The patient had been scheduled for the MRI at 6 o'clock last evening. To my surprise there is nothing in our system. I called the patient at home and she reported that she decided to cancel the MRI as she did not care for the technologist doing the study. I let her know not to worry as I do not live very far from the hospital and it was not a tremendous inconvenience.
== END ==
LOC: M ONCR 10:33
PROVIDERS: ATTEND Radiology Radiation Oncology
DX: Z53.9 Procedure and treatment not carried out, unspecified reason (principal)

== ENCOUNTER → 2018-12-20 | Outpatient (CLI) | payer OTHER ==
[~2018-12-20] MED LIST changes: +SERT-155 PO; -SERT50TA29 PO
--- NOTE | 2018-12-20 10:34 | REPMRS ---
Patient History The patient states she has not had a clinical breast exam in over a year. Patient is postmenopausal, has history of lung cancer at age 57, and had previous chemotherapy at age 57. Patient states she is currently having chemotherapy 11/2018. Family history of prostate cancer at age 50 or over in father, breast cancer at age 50 or over in maternal aunt. Took hormonal contraceptives for 10 years. 3D TOMOSYNTHESIS WAS PERFORMED. The [facility] lifetime risk for breast cancer is 11.0%. Digital Woman Screen Mammo: December 20, 2018 - Exam #: [id number] Bilateral CC and MLO view(s) were taken. Technologist: Esperanza Chadwick Technologist Prior study comparison: July 17, 2016, digital woman screen mammo performed at [facility]. November 24, 2014, digital woman screen mammo performed at [facility] [employer] [facility]. FINDINGS: There are scattered fibroglandular densities. There has been no change in the appearance of the mammogram from the prior studies. There is a mild amount of residual fibroglandular tissue which is fairly symmetric. There is no interval development of dominant mass, architectural distortion, or clustered microcalcification suggestive of malignancy. Assessment: BI-RADS/ACR category 1 mammogram. Negative Mammogram. Recommendation Routine screening mammogram in 1 year (for women over age 40). This mammogram was interpreted with the aid of an FDA-approved computer-aided dectection system. Electronically Signed By: Nestor Chance MD 12/20/18 1211
== END ==
LOC: M WHC 08:55
PROVIDERS: ATTEND Family Medicine
DX: Z12.31 Encounter for screening mammogram for malignant neoplasm of breast (principal); Z78.0 Asymptomatic menopausal state; Z85.118 Personal history of other malignant neoplasm of bronchus and lung; Z92.21 Personal history of antineoplastic chemotherapy; Z92.0 Personal history of contraception

== ENCOUNTER → 2018-12-26 | Outpatient (CLI) | payer OTHER ==
[~2018-12-26] MED LIST changes: +PROHANCE 279.3MG/ML 15ML VIAL (A9576) As Ordered ONE; +PROHANCE 279.3MG/ML 5ML VIAL (A9576) As Ordered ONE
--- NOTE | 2018-12-26 13:12 | REP ---
MRI of the brain without and with contrast Indication: Metastatic lung cancer. Comparison: MRI brain of 09/13/2018. Technique: MRI of the brain was performed utilizing sagittal T1 FLAIR, and axial DWI, T1, T2, and FLAIR precontrast imaging. Following the uneventful intravenous administration of 18 ml ProHance, axial and coronal T1 FLAIR imaging was performed. Findings: There is patient motion artifact which degrades image quality and decreases the sensitivity of the study. Within this limitation, there is no suspicious enhancing lesion to suggest metastasis. There is no restricted diffusion to suggest acute ischemia or infarction. There are scattered periventricular and subcortical white matter changes which are nonspecific but suggestive of mild microvascular ischemic disease, similar to prior. The ventricles and sulci are symmetric. There is no intra- or extra-axial fluid collection. There is no mass effect. There is no midline shift or basal cistern effacement. The visualized flow voids are preserved. The visualized paranasal sinuses and mastoid air cells are clear. Impression: Motion artifact degradation. Within this limitation, no evidence of intracranial metastatic disease. No acute intracranial abnormality. Similar mild white matter changes. Electronically Signed by Bret Rogers MD 12/26/2018 01:03 P
== END ==
LOC: M RAD 10:49
PROVIDERS: ATTEND Internal Medicine Hematology & Oncology
DX: C34.90 Malignant neoplasm of unspecified part of unspecified bronchus or lung (principal)
CPT/HCPCS: 70553; A9576

== ENCOUNTER → 2018-12-31 | Outpatient (CLI) | payer OTHER ==
[~2018-12-31] MED LIST changes: -PROHANCE 279.3MG/ML 15ML VIAL (A9576) As Ordered ONE; -PROHANCE 279.3MG/ML 5ML VIAL (A9576) As Ordered ONE
[2018-12-31 12:39] LABS: HEMATOCRIT 35.7 % (36.0-47.0); HEMOGLOBIN 12.6 g/dl (12.0-15.5); MEAN CORPUSCULAR HEMOGLOBIN 32.6 pg (27.0-33.0); MEAN CORPUSCULAR HGB CONC 35.3 g/dl (32.0-36.5); MEAN CORPUSCULAR VOLUME 92.5 fl (80.0-96.0); RED BLOOD COUNT 3.86 10^6/uL (4.00-5.40)
[2018-12-31 13:32] LABS: WHITE BLOOD COUNT 1.9 10^3/uL (4.0-10.0)
[2018-12-31 13:33] LABS: PLATELET COUNT, AUTOMATED 13 10^3/uL (150-450)
[2018-12-31 13:44] LABS: ATYPICAL LYMPH 1 % (0-5); EOSINOPHILS 1 % (0-3); LYMPHOCYTES 78 % (16-44); MONOCYTES 5 % (0-5); NEUTROPHILS 14 % (28-66); PLATELET ESTIMATE MARKED DECREASE (NORMAL)
[2018-12-31 13:45] LABS: ANISOCYTOSIS 1+
== END ==
LOC: M LAB 11:23
DX: C34.90 Malignant neoplasm of unspecified part of unspecified bronchus or lung (principal)

== ENCOUNTER → 2019-01-08 | Outpatient (CLI) | payer OTHER ==
[2019-01-08 09:46] LABS: BASO % 0.5 % (0.0-1.0); EOS % 0.7 % (0.0-3.0); HEMATOCRIT 35.3 % (36.0-47.0); HEMOGLOBIN 12.3 g/dl (12.0-15.5); LYMPH # 1.8 10^3/uL (1.5-5.0); MEAN CORPUSCULAR HEMOGLOBIN 32.4 pg (27.0-33.0); MEAN CORPUSCULAR HGB CONC 34.8 g/dl (32.0-36.5); MEAN CORPUSCULAR VOLUME 92.9 fl (80.0-96.0); MONO # 0.5 10^3/uL (0.0-0.8); MONO % 10.3 % (0.0-5.0); NEUTROPHILS % 45.1 % (36.0-66.0); PLATELET COUNT, AUTOMATED 117 10^3/uL (150-450); WHITE BLOOD COUNT 4.4 10^3/uL (4.0-10.0)
== END ==
LOC: M LAB 09:08
PROVIDERS: ATTEND Internal Medicine Hematology & Oncology
DX: C34.90 Malignant neoplasm of unspecified part of unspecified bronchus or lung (principal)

== ENCOUNTER → 2019-02-04 | Outpatient (CLI) | payer OTHER ==
[~2019-02-04] MED LIST changes: +GASTROGRAFIN SOLUTION 30ML (Q9963) As Ordered ONE; +ISOVUE-370 76% 100ML VIAL (Q9967) As Ordered ONE
--- NOTE | 2019-02-04 19:41 | REP ---
HISTORY: History of lung carcinoma. COMPARISON: Multiple, the latest 12/06/2018. CONTRAST: 100 mL Isovue-370. The left anterior mediastinal mass seen on the latest prior examination has significantly decreased in size. Today it measures approximately 2.9 x 3.9 x 2.3 cm. Precarinal adenopathy also seen previously has improved. No venessa mediastinal adenopathy is now present. There is no hilar adenopathy. There are no pleural or pericardial effusions. Bone window technique throughout the exam shows no significant change in the appearance of the osseous structures. Evaluation of the lung jiang shows no new abnormal nodules, masses, or opacities. Mild cylindrical bronchiectasis is present and particularly in the lung bases, status quo. IMPRESSION: Improvement as described above. Electronically Signed by Homer Garcia DO 02/04/2019 07:47 P
--- NOTE | 2019-02-04 19:45 | REP ---
HISTORY: History of lung carcinoma. COMPARISON: Multiple, the latest 12/06/2018. CONTRAST: 100 mL Isovue-370. There is mild intrahepatic ductal dilatation, status quo, secondary to the patient's previous cholecystectomy. The liver is otherwise unchanged and within normal limits. The spleen, pancreas, adrenal glands and kidneys are unchanged and again seen to be within normal limits. The abdominal aorta and periaortic regions are unchanged and again seen to be within normal limits. The bowel loops and the mesenteries are unchanged and again seen to be within normal limits. There is no free fluid or free air in the abdomen. There is no intra-abdominal mass or adenopathy. CT PELVIS: The bowel loops and the mesenteries are within normal limits. There is no pelvic mass or adenopathy. There is no free fluid or free air. Bone window technique throughout the examination shows spinal degenerative changes, status quo. IMPRESSION: No significant change from the prior exam. There is likely incidental intrahepatic ductal dilatation as described above. There is an unchanged tiny simple right renal cyst. There is no acute intra-abdominal or intrapelvic disease. Electronically Signed by Homer Garcia DO 02/04/2019 07:47 P
== END ==
LOC: M RAD 14:00
PROVIDERS: ATTEND Internal Medicine Hematology & Oncology
DX: C34.90 Malignant neoplasm of unspecified part of unspecified bronchus or lung (principal); J47.9 Bronchiectasis, uncomplicated
CPT/HCPCS: 71260; 74177; Q9963; Q9967

== ENCOUNTER → 2019-03-10 | Outpatient (CLI) | payer OTHER ==
[~2019-03-10] MED LIST changes: -GASTROGRAFIN SOLUTION 30ML (Q9963) As Ordered ONE; -ISOVUE-370 76% 100ML VIAL (Q9967) As Ordered ONE; -SERT-155 PO; +SERT50TA29 PO
--- NOTE | 2019-03-10 10:24 | REP ---
Aorto-iliac arterial Doppler ultrasound: History: Atherosclerosis of the [place] arteries. Comparison is made with findings from CT study December 05, 2018. There is a right external iliac artery stent. Findings: The right common iliac artery stent is seen to be patent. Some increased arterial Doppler velocity seen in the common iliac artery on the right. Velocity chart aorta and iliac arteries: Distal aorta 66 cm/S monophasic Right common iliac artery 187 cm/S monophasic Right external iliac artery 128 cm/S, triphasic Left common iliac artery 163 cm/S, triphasic Left external iliac artery 151 cm/S, triphasic Electronically Signed by Hector Vernon MD 03/10/2019 10:16 A
--- NOTE | 2019-03-10 10:28 | REP ---
Bilateral lower extremity arterial Doppler ultrasound: History: History of peripheral vascular disease. Atherosclerosis. Intermittent claudication bilateral lower extremities. Comparison examination February 2018. Findings: Ankle brachial indices are somewhat reduced bilaterally, measured at 0.8 and 0.7 on the right and left respectively. Triphasic to biphasic waveforms are observed throughout the right lower extremity with improved flow from prior study. On the left the mid to distal superficial femoral artery is occluded with collateral revascularization. Monophasic waveforms are noted at and distal to the proximal SFA on the left. Velocity chart right lower extremity arteries: Right CF A 147 cm/S Profunda 236 Proximal SFA 150 Mid SFA 126 Distal SFA 89 Popliteal 72 Proximal AT A 95 Tibioperoneal trunk 51 Proximal WIRELESS TELEGRAPHER 82 Distal WIRELESS TELEGRAPHER 38 Distal AT A 35 Velocity chart left lower extremity arteries: Left CF A 158 cm/S Profunda 143 Proximal SFA 58 Mid SFA occluded Distal SFA 58 Popliteal 63 Proximal AT A 21 Tibioperoneal trunk 54 Proximal WIRELESS TELEGRAPHER 20 Distal WIRELESS TELEGRAPHER 43 Distal AT A 26 Electronically Signed by Hector Vernon MD 03/10/2019 10:20 A
== END ==
LOC: M RAD 07:35
PROVIDERS: ATTEND Physician Assistant
DX: I70.213 Atherosclerosis of native arteries of extremities with intermittent claudication, bilateral legs (principal)

== ENCOUNTER → 2019-03-21 | Outpatient (CLI) | payer OTHER ==
[2019-03-21 11:14] LABS: BASO % 0.2 % (0.0-1.0); EOS % 0.2 % (0.0-3.0); HEMATOCRIT 25.8 % (36.0-47.0); HEMOGLOBIN 8.8 g/dl (12.0-15.5); LYMPH # 1.7 10^3/uL (1.5-5.0); LYMPH % 38.6 % (24.0-44.0); MEAN CORPUSCULAR HGB CONC 34.1 g/dl (32.0-36.5); MEAN CORPUSCULAR VOLUME 108.4 fl (80.0-96.0); MONO # 0.4 10^3/uL (0.0-0.8); MONO % 9.7 % (0.0-5.0); NEUTROPHILS # 2.3 10^3/uL (1.5-8.5); NEUTROPHILS % 50.8 % (36.0-66.0); RED BLOOD COUNT 2.38 10^6/uL (4.00-5.40); WHITE BLOOD COUNT 4.4 10^3/uL (4.0-10.0)
[2019-03-21 11:36] LABS: ALBUMIN 4.2 GM/DL (3.2-5.2); ALT/SGPT 20 U/L (12-78); BILIRUBIN,TOTAL 0.5 MG/DL (0.2-1.0); BLOOD UREA NITROGEN 6 MG/DL (7-18); CALCIUM LEVEL 9.2 MG/DL (8.8-10.2); CARBON DIOXIDE LEVEL 26 MEQ/L (21-32); CHLORIDE LEVEL 110 MEQ/L (98-107); CREATININE FOR GFR 0.79 MG/DL (0.55-1.30); GLOMERULAR FILTRATION RATE > 60.0 (>45); GLUCOSE, FASTING 115 MG/DL (70-100); POTASSIUM SERUM 3.6 MEQ/L (3.5-5.1); SODIUM LEVEL 141 MEQ/L (136-145); TOTAL PROTEIN 7.5 GM/DL (6.4-8.2)
[2019-03-21 11:43] LABS: PLATELET COUNT, AUTOMATED 17 10^3/uL (150-450)
== END ==
LOC: M LAB 10:45
DX: C34.90 Malignant neoplasm of unspecified part of unspecified bronchus or lung (principal)

== ENCOUNTER → 2019-03-24 | Outpatient (CLI) | payer OTHER ==
[2019-03-24 09:05] LABS: HEMATOCRIT 24.3 % (36.0-47.0); MEAN CORPUSCULAR HEMOGLOBIN 36.7 pg (27.0-33.0); MEAN CORPUSCULAR HGB CONC 32.9 g/dl (32.0-36.5); MEAN CORPUSCULAR VOLUME 111.5 fl (80.0-96.0); RED BLOOD COUNT 2.18 10^6/uL (4.00-5.40)
[2019-03-24 09:08] LABS: ALBUMIN 3.9 GM/DL (3.2-5.2); ALT/SGPT 18 U/L (12-78); BILIRUBIN,TOTAL 0.4 MG/DL (0.2-1.0); BLOOD UREA NITROGEN 8 MG/DL (7-18); CALCIUM LEVEL 8.9 MG/DL (8.8-10.2); CARBON DIOXIDE LEVEL 26 MEQ/L (21-32); CHLORIDE LEVEL 111 MEQ/L (98-107); CREATININE FOR GFR 0.68 MG/DL (0.55-1.30); GLOMERULAR FILTRATION RATE > 60.0 (>45); GLUCOSE, FASTING 90 MG/DL (70-100); POTASSIUM SERUM 3.4 MEQ/L (3.5-5.1); SODIUM LEVEL 144 MEQ/L (136-145); TOTAL PROTEIN 7.1 GM/DL (6.4-8.2)
[2019-03-24 09:18] LABS: PLATELET COUNT, AUTOMATED 26 10^3/uL (150-450)
[2019-03-24 10:20] LABS: ATYPICAL LYMPH 1 % (0-5); LYMPHOCYTES 38 % (16-44); MONOCYTES 6 % (0-5); NEUTROPHILS 50 % (28-66); PLATELET ESTIMATE MARKED DECREASE (NORMAL)
[2019-03-24 10:21] LABS: ANISOCYTOSIS 2+
== END ==
LOC: M LAB 08:10
DX: C34.90 Malignant neoplasm of unspecified part of unspecified bronchus or lung (principal)

== ENCOUNTER → 2019-03-31 | Outpatient (CLI) | payer OTHER ==
[2019-03-31 10:21] LABS: BASO % 0.2 % (0.0-1.0); EOS % 0.2 % (0.0-3.0); HEMATOCRIT 26.2 % (36.0-47.0); HEMOGLOBIN 8.9 g/dl (12.0-15.5); LYMPH # 1.7 10^3/uL (1.5-5.0); LYMPH % 32.5 % (24.0-44.0); MEAN CORPUSCULAR HEMOGLOBIN 37.9 pg (27.0-33.0); MEAN CORPUSCULAR VOLUME 111.5 fl (80.0-96.0); MONO # 0.6 10^3/uL (0.0-0.8); MONO % 12.1 % (0.0-5.0); NEUTROPHILS # 2.9 10^3/uL (1.5-8.5); NEUTROPHILS % 54.4 % (36.0-66.0); RED BLOOD COUNT 2.35 10^6/uL (4.00-5.40); WHITE BLOOD COUNT 5.3 10^3/uL (4.0-10.0)
[2019-03-31 10:31] LABS: PLATELET COUNT, AUTOMATED 73 10^3/uL (150-450)
== END ==
LOC: M LAB 09:53
DX: D69.59 Other secondary thrombocytopenia (principal); T45.1X5A Adverse effect of antineoplastic and immunosuppressive drugs, initial encounter

== ENCOUNTER → 2019-05-08 | Outpatient (CLI) | payer OTHER ==
[2019-05-08 08:59] LABS: BASO % 0.2 % (0.0-1.0); EOS # 0.1 10^3/uL (0.0-0.5); HEMOGLOBIN 10.7 g/dl (12.0-15.5); LYMPH # 1.8 10^3/uL (1.5-5.0); LYMPH % 28.1 % (24.0-44.0); MEAN CORPUSCULAR HEMOGLOBIN 38.1 pg (27.0-33.0); MEAN CORPUSCULAR HGB CONC 32.4 g/dl (32.0-36.5); MONO # 0.6 10^3/uL (0.0-0.8); MONO % 10.3 % (0.0-5.0); NEUTROPHILS # 3.7 10^3/uL (1.5-8.5); NEUTROPHILS % 59.8 % (36.0-66.0); PLATELET COUNT, AUTOMATED 142 10^3/uL (150-450); RED BLOOD COUNT 2.81 10^6/uL (4.00-5.40); WHITE BLOOD COUNT 6.2 10^3/uL (4.0-10.0)
[2019-05-08 09:00] LABS: MEAN CORPUSCULAR VOLUME 117.4 fl (80.0-96.0)
[2019-05-08 09:21] LABS: ALBUMIN 4.1 GM/DL (3.2-5.2); ALT/SGPT 15 U/L (12-78); BILIRUBIN,TOTAL 0.3 MG/DL (0.2-1.0); BLOOD UREA NITROGEN 9 MG/DL (7-18); CARBON DIOXIDE LEVEL 25 MEQ/L (21-32); CHLORIDE LEVEL 110 MEQ/L (98-107); CREATININE FOR GFR 0.73 MG/DL (0.55-1.30); GLOMERULAR FILTRATION RATE > 60.0 (>45); GLUCOSE, FASTING 112 MG/DL (70-100); SODIUM LEVEL 141 MEQ/L (136-145); TOTAL PROTEIN 7.5 GM/DL (6.4-8.2)
[2019-05-08 09:23] LABS: OVALOCYTES 1+; POLYCHROMASIA 1+
[2019-05-08 09:24] LABS: ANISOCYTOSIS 1+; PLATELET ESTIMATE NORMAL (NORMAL)
== END ==
LOC: M LAB 08:12
PROVIDERS: ATTEND Nurse Practitioner Family
DX: C34.90 Malignant neoplasm of unspecified part of unspecified bronchus or lung (principal); D69.59 Other secondary thrombocytopenia; T45.1X5A Adverse effect of antineoplastic and immunosuppressive drugs, initial encounter

== ENCOUNTER → 2019-05-19 | Outpatient (CLI) | payer OTHER ==
[~2019-05-19] MED LIST changes: +CLOPIDOGREL 75 MG TAB As Ordered ONE; +CLOPIDOGREL 75 MG TAB PO ONE; +HEPARIN 1,000 UNITS/ML 10ML VIAL (FOR RADIOLOGY& DIALYSIS ONLY) As Ordered ONE; +ISOVUE-300 61% 50ML VIAL (Q9967) As Ordered ONE; +LIDOCAINE 1% MDV 20ML VIAL As Ordered ONE; +MIDAZOLAM INJ 2 MG/2 ML VIAL (J2250) As Ordered ONE; +fentaNYL 100 MCG/2 ML INJECTION (J3010) As Ordered ONE
[2019-05-19 07:42] LABS: HEMATOCRIT 31.8 % (36.0-47.0); HEMOGLOBIN 10.6 g/dl (12.0-15.5); MEAN CORPUSCULAR HEMOGLOBIN 36.8 pg (27.0-33.0); MEAN CORPUSCULAR HGB CONC 33.3 g/dl (32.0-36.5); MEAN CORPUSCULAR VOLUME 110.4 fl (80.0-96.0); PLATELET COUNT, AUTOMATED 134 10^3/uL (150-450); RED BLOOD COUNT 2.88 10^6/uL (4.00-5.40); WHITE BLOOD COUNT 4.7 10^3/uL (4.0-10.0)
[2019-05-19 08:05] LABS: BLOOD UREA NITROGEN 16 MG/DL (7-18); CALCIUM LEVEL 7.8 MG/DL (8.8-10.2); CARBON DIOXIDE LEVEL 22 MEQ/L (21-32); CHLORIDE LEVEL 113 MEQ/L (98-107); CREATININE FOR GFR 0.56 MG/DL (0.55-1.30); GLOMERULAR FILTRATION RATE > 60.0 (>45); GLUCOSE, FASTING 105 MG/DL (70-100); POTASSIUM SERUM 3.2 MEQ/L (3.5-5.1); SODIUM LEVEL 142 MEQ/L (136-145)
--- NOTE | 2019-05-19 09:23 | ROOPDOC ---
[facility] Report Of Operation Report of Operation DATE OF PROCEDURE: 05/19/19 PREPROCEDURE DIAGNOSES: Atherosclerosis of the [place] vessels with lifestyle limiting claudication left lower extremity POSTPROCEDURE DIAGNOSES: Same PROCEDURE: 1. Ultrasound-guided access right common femoral artery 2. Aortoiliofemoral arteriogram 3. Selection left common femoral artery and left lower extremity arteriogram, selection left popliteal artery and runoff 4. Cross chronic total occlusion left superficial femoral artery and angioplasty with 4 x 200 [place] balloon 5. Stent left superficial femoral artery from Jasvir's canal to origin with 2 Innova stents 5 x 150 6. Post-dilation stents with 4 x 200 [place] balloon 7. Completion arteriograms 8. Mynx closure right common femoral artery SURGEON: Jenny Graham MD ANESTHESIA: Local anesthesia 8 mL lidocaine. Moderate intravenous conscious sedation was supervised by Dr. Graham. The patient was independently monitored by a registered nurse assigned to the Department of radiology using automated blood pressure, EKG, and pulse oximetry. The details sedation record is permanently start in the hospital information system. The following is the brief sedation record: Start time 08:14, stop time 09:07, Versed 1.5 mg IV, fentanyl 75 g IV, heparin 5000 units IV. CONTRAST: 62 mL of Isovue-300 INDICATION FOR PROCEDURE: Ms. barbosa is a very pleasant 58-year-old patient with chronic peripheral vascular disease status post previous intervention with a right external iliac stent with Dr. Yoder in the past with relief of her right lower extremity claudication. She now returns with lifestyle limiting left lower extremity claudication. She has a short distance she can walk and a long recovery time, and this is significantly limited her ambulation. Risks benefits and alternatives to an arteriogram and potential intervention were explained. Informed consent was obtained. INTERPRETATION: 1. The aortoiliac segments are widely patent, including the right external iliac artery stent previously placed by Dr. Yoder. The vessels are small in size, but patent. 2. The left common femoral artery is widely patent and runs off into a dilated profunda which provides collateral circulation to the SFA at Jasvir's canal. The SFA is occluded at its origin and does not reconstitute until collateral flow at Jasvir's canal. Distal to this, the popliteal artery is widely patent. The posterior tibial artery is the main runoff to the foot, and is a good size vessel. The anterior tibial and peroneal artery are both patent to the ankle but are diminutive in size. Their flow is more sluggish, but does reach the foot. 3. After crossing the chronic total occlusion in the SFA and ballooning, there was still significant flow limitation throughout the areas heaviest plaque. After stenting and post dilating, the entire SFA is widely patent and the profunda is widely patent. The stent extends from the origin of the SFA and does not cross the profunda. It ends at Jasvir's canal allowing for inflow from the profunda collateral. Following angioplasty and stenting, the runoff is intact with no embolization. No extravasation or dissections were noted. REPORT OF OPERATION: The patient was brought to the angiographic suite in stable condition. Her bilateral groins were prepped and draped in sterile fashion. A timeout was performed. Sedation was a e learning manager without complication. Local anesthesia was a e learning manager to the skin and subcutaneous tissue over the right groin. A microneedle was used to access the right common femoral artery under ultrasound guidance a wire was passed through this access into the central system under fluoroscopic guidance. A micro-sheath was placed and through this access to Glidewire was advanced into the aorta under fluoroscopic guidance. The sheath was exchanged for 6 [place] sheath and flushed with saline. An infusion catheter was placed in the distal aorta over the wire and and aortoiliofemoral arteriogram was performed, please see interpretation above. We then went up and over that the bifurcation with a Glidewire and the infusion catheter and selected the left common femoral artery. The left lower extremity arteriogram was performed, please see interpretation above. The sheath was exchanged for 45 cm destination sheath into the common femoral artery on the left. This was flushed with saline. We then advanced the Glidewire and selected the origin of the SFA. We were able to navigate the Glidewire a few centimeters and then placed a Rebuck and catheter over the wire to help cross the chronic total occlusion in the left SFA. Once we were in the popliteal artery, we confirmed we are in the true lumen with a quick injection of contrast. Over the wire, we then angioplasty the length of the SFA with a 4 x 200 [place] balloon. Following t his, we stented with 2 Innova stents, 5 x 150. We post dilated with 4 x 200 balloon and found rapid flow through the SFA to the distal lower extremity. We then placed a Rebuck and catheter over the wire into the popliteal artery to perform tibial runoffs, please see interpretation above. Following this we removed the Rebuck and catheter and exchange the sheath for the short 6 [place] sheath and flushed the sheath with saline. We didn't apply to Mynx closure device in the right common femoral artery with good hemostasis. Pressure was held for 10 minutes and the patient was taken to recovery in stable condition. She tolerated the procedure and the sedation well. ESTIMATED BLOOD LOSS: Approximately 4 mL. COMPLICATIONS: None. PLAN: Our plan will be to see the patient back in a week to check her right groin access site in her perfusion left lower extremity. She will resume all home medications including Plavix. We will give her a dose of Plavix in recovery today. It is okay for her to resume her preop diet. She should continue smoking cessation if possible and ambulate as much as possible to improve circulation. JENNY GRAHAM MD May 19, 2019 09:23
[2019-05-19 13:00] VITALS: BP 169/74
== END ==
LOC: M IRPRO 06:55
PROVIDERS: ATTEND Surgery Vascular Surgery
DX: I70.211 Atherosclerosis of native arteries of extremities with intermittent claudication, right leg (principal); I70.92 Chronic total occlusion of artery of the extremities
CPT/HCPCS: 37226; 75710; 80048; 85027; 99152; 99153; C1725; C1760; C1769; C1876; C1887; C1894; J2250; J3010; Q9967

== ENCOUNTER → 2019-06-02 | Outpatient (CLI) | payer OTHER ==
[~2019-06-02] MED LIST changes: -CLOPIDOGREL 75 MG TAB As Ordered ONE; -CLOPIDOGREL 75 MG TAB PO ONE; +GASTROGRAFIN SOLUTION 30ML (Q9963) As Ordered ONE; -HEPARIN 1,000 UNITS/ML 10ML VIAL (FOR RADIOLOGY& DIALYSIS ONLY) As Ordered ONE; -ISOVUE-300 61% 50ML VIAL (Q9967) As Ordered ONE; +ISOVUE-370 76% 100ML VIAL (Q9967) As Ordered ONE; -LIDOCAINE 1% MDV 20ML VIAL As Ordered ONE; -MIDAZOLAM INJ 2 MG/2 ML VIAL (J2250) As Ordered ONE; -fentaNYL 100 MCG/2 ML INJECTION (J3010) As Ordered ONE
--- NOTE | 2019-06-03 10:10 | REP ---
CT CHEST WITH IV CONTRAST: HISTORY: Small cell lung carcinoma, reassessment. Comparison CT study February 04, 2019. Prior CT studies from December 06, 2018 September 04, [address] CONTRAST DOSE: 100 mL of intravenous Isovue three 70. CT FINDINGS: The left anterior mediastinal mass has enlarged somewhat since the February 04, 2019 prior study. It has an irregular somewhat elongate shape. Its long axis is best displayed on sagittal multiplanar re-formation images where it is seen to measure 5.2 cm in greatest anteroposterior span x 1.9 cm in greatest oblique craniocaudal span x 3.3 cm in greatest right to left dimension. The equally rendered measurements by my measurement on February 14, 2019 study and were 4.0 x 1.4 x 1.8 cm. No change in the precarinal lymph node. No new focus of hilar or mediastinal adenopathy is appreciated. There is no evidence of pleural or pericardial effusion. No new infiltrate is seen. No lung mass or new pulmonary nodule is appreciated. No bony destructive lesion is seen. IMPRESSION: Interval regrowth seen in the left anterior mediastinal mass since the most recent prior study of February 04, 2019 as described above. Electronically Signed by Hector Vernon MD 06/03/2019 06:49 P
--- NOTE | 2019-06-03 10:19 | REP ---
CT ABDOMEN AND PELVIS WITH IV AND ORAL CONTRAST: Dual-phase postcontrast imaging. HISTORY: Small cell lung carcinoma. Re-assessment. Comparison is made with prior CT studies, the most recent which is from February 04, 2019. CT CONTRAST DOSE: 100 mL of intravenous Isovue 370. CT FINDINGS: Mildly prominent intrahepatic biliary ducts again noted unchanged post cholecystectomy. No focal liver lesion is seen. The spleen is normal in size homogeneous in texture. No adrenal abnormality is observed on either side. The previously noted celiac axis lymph nodes are again visible unchanged from the most recent prior CT study February 04, 2019. Some improvement from April 02, 2018. No new upper abdominal or retroperitoneal adenopathy is observed. No pancreatic abnormality is seen. The kidneys enhance symmetrically. There is a tiny cortical cyst in the lower pole on the right. No filling defect in the collecting system is seen on delayed scan images. Normal appendix is noted. Small and large intestinal bowel loops are unremarkable. There is a right external iliac artery stent. Vascular calcification is again noted. There is a stent visible in the superficial femoral artery on the left. No uterine or adnexal abnormality is seen. Urinary bladder is unremarkable. No bony destructive lesion is seen. IMPRESSION: No acute intra-abdominal or pelvic disease seen. Stable celiac axis lymph nodes. Post cholecystectomy and vascular stents placement as above. Electronically Signed by Hector Vernon MD 06/03/2019 06:50 P
== END ==
LOC: M RAD 07:00
PROVIDERS: ATTEND Physician Assistant
DX: C34.90 Malignant neoplasm of unspecified part of unspecified bronchus or lung (principal)
CPT/HCPCS: 71260; 74177; J1642; Q9963; Q9967

== ENCOUNTER → 2019-06-11 | Outpatient (CLI) | payer OTHER ==
[~2019-06-11] MED LIST changes: -GASTROGRAFIN SOLUTION 30ML (Q9963) As Ordered ONE; -ISOVUE-370 76% 100ML VIAL (Q9967) As Ordered ONE
== END ==
LOC: M RAD 05-28 15:41
PROVIDERS: ATTEND Physician Assistant
DX: Z53.9 Procedure and treatment not carried out, unspecified reason (principal); C34.90 Malignant neoplasm of unspecified part of unspecified bronchus or lung

== ENCOUNTER → 2019-06-18 | Outpatient (CLI) | payer OTHER ==
[~2019-06-18] MED LIST changes: +PROHANCE 279.3MG/ML 15ML VIAL (A9576) As Ordered ONE; +PROHANCE 279.3MG/ML 5ML VIAL (A9576) As Ordered ONE
--- NOTE | 2019-06-18 09:46 | REPVR ---
PROCEDURE INFORMATION: Exam: MR Head Without and With Contrast Exam date and time: 06/18/2019 9:16 AM Age: 58 years old Clinical indication: Condition or disease; History of cancer (specify primary cancer site): ; Primary cancer: Lung; Additional info: Small cell lung CA TECHNIQUE: Imaging protocol: MR of the head without and with intravenous contrast. Contrast material: PROHANCE; Contrast volume: 18 ml; Contrast route: IV; COMPARISON: MRI-Brain W/O FOLL BY WITH 12/26/2018 11:28 AM FINDINGS: Brain: There are stable cerebral T2 and FLAIR hyperintense white matter changes. There is no abnormal parenchymal or leptomeningeal contrast enhancement. Diffusion images are normal. No evidence of acute infarction. No evidence of acute intracranial hemorrhage. No extra-axial fluid collections. Ventricles and cerebrospinal fluid spaces are normal in size and configuration for the patient's age. There is no evidence of mass-effect or midline shift. Flow voids of the [place] and major cerebral vascular structures appear intact. Craniocervical junction appears unremarkable, with normal position of cerebellar tonsils and no evidence of Chiari I malformation. Ventricles: No evidence of hydrocephalus Bones/joints: Unremarkable as visualized. Soft tissues: Unremarkable as visualized. Sinuses: Unremarkable as visualized. No acute sinusitis. Mastoid air cells: No significant mastoid effusion. Orbits: Unremarkable as visualized. No exophthalmos or evidence of mass. IMPRESSION: 1. No evidence of intracranial mass or metastatic disease. 2. Stable cerebral white matter changes, likely microvascular change in patient of this age. Electronically signed by: Tamara Mary On 06/18/2019 09:46:00 AM
== END ==
LOC: M RAD 07:34
PROVIDERS: ATTEND Physician Assistant
DX: C34.90 Malignant neoplasm of unspecified part of unspecified bronchus or lung (principal)
CPT/HCPCS: 70553; A9576

== ENCOUNTER → 2019-06-27 | Outpatient (CLI) | payer OTHER ==
[~2019-06-27] MED LIST changes: -PROHANCE 279.3MG/ML 15ML VIAL (A9576) As Ordered ONE; -PROHANCE 279.3MG/ML 5ML VIAL (A9576) As Ordered ONE
--- NOTE | 2019-06-30 08:21 | RADONC ---
RADIATION ONCOLOGY CONSULTATION NOTE DATE: 06/27/2019 CHART NUMBER: [id number] CONSULTATION NOTE: Ms. Turcios is a delightful 58-year-old white female with the diagnosis of extensive stage small cell lung carcinoma who has been seen by us in consultation initially on 03/28/2018 for a diagnosis of extensive stage small cell lung carcinoma. The patient was not treated by us but has been undergoing systemic therapy in [place] with Dr. Cynthia Lainez MD. During the course of her treatments she had been doing well and developed an excellent result. She has been followed however, and a recent CT scan done 06/02/2019 shows that her left anterior mediastinal mass has enlarged somewhat since previous CT of 02/04/2019. The lesion now measures 2.5 cm x 1.9 cm. In the craniocaudal dimension it is 3.3 cm. This had previously measured 4 x 1.4 x 1.8 cm. It therefore has been increasing and the patient is now being referred to us for consideration of local regional radiation in attempt to increase the likelihood of achieving local control. PAST MEDICAL HISTORY: The patient's past medical history is positive for hepatitis C as well as peripheral vascular disease in the right leg and some depression. She has had a cholecystectomy as well as two C sections. She had a left leg fracture and repair and a tonsillectomy in the past. ALLERGIES: The patient has NO KNOWN DRUG ALLERGIES. SOCIAL HISTORY: The patient had smoked one and a half packs of cigarettes per day for 43 years. She does not abuse alcohol. FAMILY HISTORY: The patient's family history is negative for lung cancer or other malignancies. REVIEW OF SYSTEMS: The patient's review of systems is noncontributory. Denies nausea, vomiting, fevers, chills, night sweats, diplopia, headaches, anxiety or depression, anorexia, weight loss, visual disturbances, chest pain, urinary or bowel difficulties, bone pain, or neurological problems. PHYSICAL EXAMINATION: The patient is a well-developed, well-nourished 58-year-old in no acute distress. HEENT exam is normocephalic, atraumatic. Extraocular movements are intact. There is no palpable cervical, supraclavicular, infraclavicular, axillary, or inguinal lymphadenopathy present. Lungs are clear to auscultation and percussion. Heart has a regular rate and rhythm. Abdomen is benign with no hepatosplenomegaly, masses, or tenderness. Skeletal examination reveals no tenderness to pressure or percussion of the bony skeleton. Extremities reveal no clubbing, cyanosis, or edema. Neurologic exam is grossly intact, as is the remainder of the physical examination. ASSESSMENT: I had lengthy discussion with this patient. I do believe she is a candidate for local regional radiation therapy in an attempt to achieve local control. We discussed in detail the potential benefits as well as possible acute and chronic sequelae of external beam radiation therapy. We discussed the logistics of treatment planning, simulation subsequent fractionated daily radiation treatments. I am scheduling the patient for simulation and initiation of treatment planning. In addition, I am ordering pulmonary function tests and differential lung scan to further evaluate her overall breathing capacity for this treatment. We will keep you informed as any new developments as they occur. She will also continue to be followed by her medical oncologist. Thank you for allowing us to participate in her care. As always, warm regards. cc: MD Cynthia Maldonado MD [place], MD Robert Johnson, MD Lawrence Kramer, MD Regina Wetterhahn, PA-C
== END ==
LOC: M ONCR 09:04
PROVIDERS: ATTEND Radiology Radiation Oncology
DX: C34.02 Malignant neoplasm of left main bronchus (principal); C77.1 Secondary and unspecified malignant neoplasm of intrathoracic lymph nodes

== ENCOUNTER → 2019-07-04 | Outpatient (CLI) | payer OTHER ==
--- NOTE | 2019-07-04 09:35 | PFTRPT ---
Height: 66.50 Inches Weight: 207.00 Lbs BSA: 2.04 Diagnosis: C34.02 DATE OF STUDY: 07/04/2019 ORDERED BY: Dr. Williamson Spirometry: Pre and post bronchodilator study of excellent technical quality. Forced vital capacity normal. FEV1 in proportion. Obstructive index is, therefore, normal. Flow Volume Loop: Expiratory limb of the flow volume loop is normal. No significant bronchodilator response identified. Lung Volumes: Total lung capacity normal. Residual volume is in proportion. Diffusing Capacity: Diffusing capacity, although reduced, is appropriate for alveolar volume. Hemoglobin: Hemoglobin reduced at 10.3. Airway Mechanics: Airway resistance and conductance are normal. IMPRESSION: Diffusing capacity impairment, probably on the basis of anemia. Please correlate clinically. MTDD
== END ==
LOC: M CARPUL 08:46
PROVIDERS: ATTEND Radiology Radiation Oncology
DX: C34.02 Malignant neoplasm of left main bronchus (principal)

== ENCOUNTER → 2019-07-07 | Outpatient (CLI) | payer OTHER ==
--- NOTE | 2019-07-07 12:21 | REP ---
DIFFERENTIAL VENTILATION-PERFUSION LUNG SCAN: HISTORY: Malignant neoplasm of the left main bronchus. Comparison CT study June 02, 2019. TECHNIQUE: 1.0 mCi technetium 99m MAA is administered intravenously for the perfusion study and is followed by a 2.0 mCi dose of technetium-99m DTPA aerosol for the ventilation study. Anterior and posterior planar images are acquired for each portion of the study. These images are "segmented" into horizontal thirds and the segmental data is available on the digital image measurement system for detailed review. RESULTS: There is central bronchial deposition of inspired tracer consistent with some degree of COPD. Overall on the perfusion study, the left lung contains 42% of perfusion counts and the right lung 58%. For the ventilation study the differential lung function is 41% left 59% right. IMPRESSION: Differential lung scan. Electronically Signed by Hector Vernon MD 07/07/2019 05:42 P
--- NOTE | 2019-07-07 19:20 | REP ---
PA and lateral chest: Comparisons are the PA and lateral chest of 04/03/[address] of 06/02/2019. There is a mass-like density lateral to the aortic arch, decreased in size from 12/09, 09/16/2017 plain film study, however, on the recent CT this density represents tumor recurrence. Lung jiagn otherwise clear. Cardiac size is normal. The main are unremarkable. There is a right subclavian central venous Entvod-O-Cict catheter with the tip in the superior vena cava, unchanged. Impression: Mass-like density lateral to the aortic arch. This represents tumor recurrence on the recent chest CT. Electronically Signed by Nestor Wakefield MD 07/07/2019 07:12 P
== END ==
LOC: M RAD 10:27
PROVIDERS: ATTEND Radiology Radiation Oncology
DX: C34.02 Malignant neoplasm of left main bronchus (principal)
CPT/HCPCS: 71046; 78598; A9540; A9567

== ENCOUNTER → 2019-07-15 | Outpatient (CLI) | payer OTHER ==
--- NOTE | 2019-07-15 09:21 | REP ---
Bilateral lower extremity arterial Doppler ultrasound: History: Atherosclerosis. Intermittent claudication bilateral lower extremities. Comparison study March 10, 2019. May 19, 2019 angiographic images show that the patient underwent left superficial femoral artery angioplasty. Findings: Ankle brachial indices are normal measured at 0.9 on the right and 1.1 on the left. There is considerable improvement on the left with triphasic waveforms are observed and improved velocities in the left lower extremity. The superficial femoral artery is patent. Triphasic waveforms are noted in the left lower extremity to the tibioperoneal trunk. Monophasic waveforms are noted in the posterior tibial artery and the distal anterior tibial artery on the left. On the right there are predominantly triphasic and biphasic waveforms. Monophasic wave form is noted in the distal posterior tibial and distal anterior tibial artery. Velocities are similar on the right to the prior study. Right lower extremity arterial Doppler velocity chart: C I A 255 cm/S E I A 120 CF A 85 Profunda 166 Proximal SFA 132 Mid SFA 126 Distal SFA 126 Popliteal 50 Proximal AT A 50 Tibioperoneal trunk 55 Proximal MECHANIC INDUSTRIAL TRUCK 38 Distal MECHANIC INDUSTRIAL TRUCK 33 Distal AT A 37 Left lower extremity arterial Doppler velocity chart: HEATHER obscured by bowel gas E I A 184 cm/S CF A 159 Profunda 137 Proximal SFA 166 Mid SFA 122 Distal SFA 97 Popliteal 112 Proximal AT A 46 Tibioperoneal trunk 76 Proximal MECHANIC INDUSTRIAL TRUCK 86 Distal MECHANIC INDUSTRIAL TRUCK 118 Distal AT A 46 Electronically Signed by Hector Vernon MD 07/15/2019 09:12 A
== END ==
LOC: M RAD 07:00
PROVIDERS: ATTEND Physician Assistant
DX: I70.213 Atherosclerosis of native arteries of extremities with intermittent claudication, bilateral legs (principal)

== ENCOUNTER → 2019-07-29 | Outpatient (RCR) | payer OTHER ==
--- NOTE | 2019-07-10 10:14 | RADONC ---
RADIATION ONCOLOGY SIMULATION NOTE DATE: 07/09/2019 CHART #: [id number] Ms. Turcios was taken to the CT scan for CT simulation of her mediastinal/lung field. CT was accomplished without difficulty or discomfort. Radiation treatment planning is underway and radiation treatments will begin subsequently. An immobilization device was created and will be used throughout the course of treatment. It was created without difficulty or discomfort. I was physically present throughout the course of CT simulation. We have obtained the results of the patient's pulmonary function tests as well as differential lung scan. We will now be generating a dose volume histogram and evaluate her overall potential breathing capacity upon completion of therapy.
--- NOTE | 2019-07-21 14:35 | RADONC ---
RADIATION ONCOLOGY PROGRESS NOTE DATE OF SERVICE: 07/21/2019 CHART NUMBER: [id number]. PROGRESS NOTE: Ms. Turcios was taken to the linear accelerator today and underwent her first fraction of radiation today for a dose of 200 cGy. It was tolerated without difficulty or discomfort. REVIEW OF SYSTEMS: The patient's review of systems is noncontributory. She denies nausea, vomiting, fevers, chills, night sweats, diplopia, headaches, anxiety or depression, anorexia, weight loss, visual disturbances, chest pain, urinary or bowel difficulties, bone pain, or neurological problems. PHYSICAL EXAMINATION: Physical examination was deferred secondary to COVID-19 precautions. ASSESSMENT: Ms. Turcios tolerated her first fraction of radiation well, and radiation will continue as scheduled.
--- NOTE | 2019-07-28 13:30 | RADONC ---
RADIATION ONCOLOGY PROGRESS NOTE DATE: 07/28/2019 CHART #: [id number] Ms. Turcios is presently at a dose of 1200 cGy to her mediastinum and is tolerating treatments quite well at this point with no complaints related to her radiation therapy. She is having no difficulty swallowing or other chest problems. REVIEW OF SYSTEMS: The patient's review of systems, however, is positive for jaw pain since her dental work 2 weeks ago. She reports that she was seen by the dentist last Sunday who said everything was okay, but she is continuing to have increased pain. She is going to see him immediately after treatment today to discuss the situation quite forcefully. The remainder of physical review of systems is noncontributory. PHYSICAL EXAMINATION: Deferred secondary to COVID-19. ASSESSMENT: The patient is tolerating her radiation treatments quite well and radiation will continue as scheduled.
== END ==
LOC: M ONCR 07-09 13:56
PROVIDERS: ATTEND Radiology Radiation Oncology
DX: C34.02 Malignant neoplasm of left main bronchus (principal)

== ENCOUNTER 2019-08-18 14:38 | Emergency (ER) | payer OTHER ==
[~2019-08-18] VITALS: Ht 170.2 cm; Wt 98.2 kg
[~2019-08-18 14:38] MED LIST changes: +SODIUM CHLORIDE 0.9% INJ 10 ML SYR IV SCH
[2019-08-18] MEDS ORDERED: ISOVUE-370 76% 100ML VIAL As Ordered ONE (15:40)
[2019-08-18 15:45] LABS: BASO % 0.3 % (0.0-1.0); EOS # 0.1 10^3/uL (0.0-0.5); EOS % 1.1 % (0.0-3.0); HEMOGLOBIN 13.1 g/dl (12.0-15.5); LYMPH # 0.6 10^3/uL (1.5-5.0); LYMPH % 9.9 % (24.0-44.0); MEAN CORPUSCULAR HEMOGLOBIN 32.3 pg (27.0-33.0); MEAN CORPUSCULAR HGB CONC 33.6 g/dl (32.0-36.5); MEAN CORPUSCULAR VOLUME 96.3 fl (80.0-96.0); MONO # 0.7 10^3/uL (0.0-0.8); MONO % 10.5 % (0.0-5.0); NEUTROPHILS % 77.3 % (36.0-66.0); PLATELET COUNT, AUTOMATED 160 10^3/uL (150-450); RED BLOOD COUNT 4.05 10^6/uL (4.00-5.40); WHITE BLOOD COUNT 6.5 10^3/uL (4.0-10.0)
[2019-08-18 16:37] VITALS: BP 146/77
[2019-08-18] MEDS ORDERED: NORC1TAB7 PO (16:59)
--- NOTE | 2019-08-18 23:36 | REP ---
CT MAXILLOFACIAL BONES WITH IV CONTRAST: CT maxillofacial region performed following the intravenous administration of 75 mL Isovue-370. Sagittal and coronal reconstruction images are performed. No abscess is seen. There is no lymphadenopathy. Globes are intact. No soft tissue mass is seen in the visualized soft tissues. Parotid and submandibular glands are unremarkable. Visualized osseous structures are intact. There are mild degenerative changes of the cervical spine. Paranasal sinuses are clear with no evidence of sinusitis. There are vascular calcifications in the carotid siphons. Mastoid air cells are clear with no mastoiditis. IMPRESSION: No evidence of abscess or adenopathy. Osseous structures are unremarkable. Electronically Signed by Nestor Chance MD 08/19/2019 04:53 P
[2019-08-25] MEDS ORDERED: PERC10TA26 PO (09:36)
== END 2019-08-18 17:18 | disposition home or self-care (01) ==
LOC: M ED 14:38
DX: R68.84 Jaw pain (principal); B18.2 Chronic viral hepatitis C; F17.210 Nicotine dependence, cigarettes, uncomplicated
CPT/HCPCS: 36415; 70487; 80047; 85025; 99283; J1642; Q9967

== ENCOUNTER 2019-08-27 08:57 | Outpatient (RCR) | payer OTHER ==
--- NOTE | 2019-08-05 08:04 | RADONC ---
RADIATION ONCOLOGY PROGRESS NOTE: DATE OF SERVICE: 08/04/2019 CHART NUMBER: [id number] Ms. Turcios is presently at a dose of 2200 cGy to her mediastinum and overall is tolerating treatments quite well with no significant difficulties related to her radiation therapy. REVIEW OF SYSTEMS: The patient's review of systems is noncontributory. She denies nausea, vomiting, fevers, chills, night sweats, diplopia, headaches, anxiety or depression, anorexia, weight loss, visual disturbances, chest pain, urinary or bowel difficulties, bone pain, or neurological problems. PHYSICAL EXAMINATION The patient's physical examination was deferred as per COVID-19 precautions. ASSESSMENT: Ms. Turcios is tolerating treatments well and radiation will continue as scheduled.
--- NOTE | 2019-08-11 10:17 | RADONC ---
RADIATION ONCOLOGY PROGRESS NOTE DATE OF SERVICE: 08/11/2019 CHART NUMBER: [id number] Ms. Turcios is presently a dose of 3200 cGy to her mediastinum and is tolerating treatments quite well at this point with no significant difficulties related to her radiation therapy other than some discomfort upon swallowing. She continues have some neurologic pain over her jaw secondary to shingles, which is unchanged. This is unrelated to her radiation. The patient's review of systems is positive for her jaw pain, as well as some discomfort upon swallowing but is otherwise noncontributory. Denies nausea, vomiting, fevers, chills, night sweats, diplopia, headaches, anxiety or depression, anorexia, weight loss, visual disturbances, chest pain, urinary or bowel difficulties, bone pain, or neurological problems. PHYSICAL EXAMINATION The patient's skin is in good condition with no evidence of moist or dry desquamation. The remainder of her physical exam remains unchanged. Ms. Turcios is tolerating treatments quite well and radiation will continue as scheduled.
--- NOTE | 2019-08-18 13:57 | RADONC ---
RADIATION ONCOLOGY PROGRESS NOTE DATE: 08/18/2019 CHART #: [id number] Ms. Turcios is presently at a dose of 4200 cGy to her mediastinum and is tolerating treatments quite well at this point with no complaints at this time related to her radiation therapy. She continues to complain of significant pain and discomfort over the extracted tooth as well as numbness on that side of her face. She has been seen by an oral surgeon as well as a neurologist and her primary care doctor about this. She is complaining at this time that it is getting worse and something needs to be done. I asked her to call her neurologist as well as her oral surgeon today and be seen. I believe this may be an infectious process. The patient reports that she was told she has shingles, however, I do believe it would be valuable to further evaluate this. This is outside the scope of my practice, however. REVIEW OF SYSTEMS: The patient's review of systems is noncontributory. Denies nausea, vomiting, fevers, chills, night sweats, diplopia, headaches, anxiety or depression, anorexia, weight loss, visual disturbances, chest pain, urinary or bowel difficulties, bone pain, or neurological problems. PHYSICAL EXAMINATION: The patient's skin is in good condition with no evidence of moist or dry desquamation. The remainder of her physical exam was deferred as per COVID-19 precautions. ASSESSMENT: Ms. Turcios is tolerating treatments quite well and radiation will continue as scheduled.
--- NOTE | 2019-08-25 23:27 | RADONC ---
RADIATION ONCOLOGY PROGRESS NOTE DATE: 08/25/2019 CHART NUMBER: [id number] Ms. Turcios is thus far at a dose of 5200 cGy to her mediastinal mass. She is tolerating her radiation treatments without difficulty and has no complaints related to her radiation therapy. The patient reports, however, that she has not had systemic therapy since April. She is complaining of severe pain while laying on the table and actually came off crying. She reported that the pain is present over her left lateral posterior ribs, and it hurts to touch. This is excruciating when she is hugged or puts pressure on it. In addition, the patient has significant pain continuing over her tooth for which she was placed on gabapentin and was seen in the emergency room and had a CT scan done. This is being followed by her neurologist and ER, and her oral surgeon. PHYSICAL EXAMINATION: The patient has marked tenderness with pressure over the posterior left lateral ribs. There is no other tenderness to pressure over the bony skeleton. There is no tenderness over the abdomen itself. The patient wishes to continue with radiation to the mediastinum, which is not causing her problem. In light of this, we will continue with that. I have given the patient a prescription for Percocet to alleviate some of her discomfort. She is in quite a bit of pain and has tears in her eyes. In addition, I am ordering a bone scan to be undertaken as well as new CT scans of the chest, abdomen and pelvis. It has now been 3 months since her systemic therapy, and it is possible she has bony metastatic disease. Less likely would be some type of abdominal or lower lung disease. Once again, in summary, radiation will continue to the upper mediastinal mass as prescribed. We are ordering new CTs of the chest and abdomen to rule out any internal metastatic disease or issues and a bone scan to rule out metastatic disease to the bone. Further recommendations will be made as indicated. Once again, we will defer management of her oral cavity issues to her treating physicians.
[~2019-08-27 08:57] MED LIST changes: -GASTROGRAFIN SOLUTION 30ML (Q9963) As Ordered ONE; -ISOVUE-370 76% 100ML VIAL As Ordered ONE
--- NOTE | 2019-08-28 23:01 | RADONC ---
RADIATION ONCOLOGY TREATMENT SUMMARY DATE: 08/27/2019 CHART NUMBER: [id number] DIAGNOSIS: Small cell lung carcinoma. STAGE: Extensive, recurrent. ECOG PERFORMANCE STATUS: Zero. TREATMENT SUMMARY: Ms. Turcios is a delightful 58-year-old white female with a diagnosis of extensive stage small cell lung carcinoma who presented to me on 06/27/2019 having had progression of disease following chemotherapy in her left anterior mediastinum. She presented for consideration of palliative radiation therapy to that progressive mass in attempt to achieve local control. We treated the patient to her mediastinal mass for a dose of 5600 cGy delivered in 28 fractions of 200 cGy each over 34 elapsed days from 07/21/2019 through 08/27/2019. The patient's mediastinum was treated on a linear accelerator utilizing a 15 MV photon beam via 3D conformal technique. Ms. Turcios tolerated her treatments quite well and had no difficulties with her radiation treatments. Throughout the course of therapy, unfortunately she had a significant amount of difficulty having had a tooth pulled. She reported pain in her jaw and numbness. She was seen in the emergency department as well as by the oral surgeon and a neurologist for this. This continued to follow her throughout the course of treatment. We had planned on delivering further radiation to this mediastinal mass, which appeared to be the only site of residual disease at time of consultation. Yesterday, however, the patient came in for treatment and when examining her daily port films, it became clear that there was a change with what appeared to be either a pleural effusion or some atelectasis. After completion of yesterday's treatment, I questioned her, and she was complaining of new pain over the left lower lateral ribs. We ordered a CT scan and bone scan to be done at that time. The patient came in today, and I felt very strongly after reviewing those films again that I wanted that CT scan done GAEL. I change our orders to stat on both the CT scan of the chest and abdomen. I have received the results of the CT chest and the CT abdomen done today. The left anterior mediastinal mass has decreased in size from an original 3.8 cm x 2.6 cm prior to radiation down 2.9 cm x 1.6 cm today. Unfortunately, there were multiple new pleural-based soft tissue nodules and masses on the left, which were somewhat confluent inferiorly and coincided with my clinical examination and her subjective rib pain area. There was new diffuse pleural metastatic disease on the left with new moderate pleural effusion. In addition, the CT of the abdomen showed diffuse multiple nodules throughout both lobes of the liver, which were subcentimeter in diameter and consistent with diffuse metastatic disease. There was also noted to be new abdominal adenopathy, the largest node measuring 1.5 cm. I have reviewed the patient's previous CTs, and she did previously have abdominal periaortic lymphadenopathy as well as liver metastases. In light of the change in her thorax as well as these new developments, I have discontinued treatment at this time. I put a call into her medical oncologist, Dr. Gabriel Padilla MD and we discussed this case at length. At this time, we both agree to stop radiation to the solitary progressive site and to evaluate for reinitiation of systemic treatment. Dr. Padilla's office will be calling Ms. Turcios sometime within the next day or so to set up an appointment to evaluate and hopefully start systemic therapy next week. I called the patient at home and let her know this. She has my cell phone number and work office number. I instructed her to contact me if she does not hear from anyone in the next day or so. I also discussed in length the results of the CT scans and their significance. We will be setting up a followup in our office in 1 month as well. As noted above, the patient does have my cell phone and office numbers and will be in touch with me closely to assist in keeping things on track. cc: MD Cynthia Yuen MD [place], MD Robert Johnson, MD Lawrence G. Kramer, MD Regina Wetterhahn, PA-C
== END 2019-08-28 ==
LOC: M ONCR 08:57
PROVIDERS: ATTEND Radiology Radiation Oncology
DX: C34.02 Malignant neoplasm of left main bronchus (principal)

== ENCOUNTER → 2019-08-27 | Outpatient (CLI) | payer OTHER ==
[~2019-08-27] MED LIST changes: +GASTROGRAFIN SOLUTION 30ML (Q9963) As Ordered ONE; +ISOVUE-370 76% 100ML VIAL As Ordered ONE; +NORC1TAB7 PO; +PERC10TA26 PO; -SODIUM CHLORIDE 0.9% INJ 10 ML SYR IV SCH
--- NOTE | 2019-08-27 12:22 | REP ---
CT CHEST WITH IV CONTRAST: TECHNIQUE: Axial contrast enhanced images from the thoracic inlet to the upper abdomen using 100 mL Isovue-370 intravenous contrast material with multiplanar reformations. COMPARISON: 06/02/2019 The previously noted left anterior mediastinal mass has decreased in size, currently measuring approximately 2.9 x 1.6 cm, previously approximately 3.8 x 2.6 cm. There are new pleural-based nodular soft tissue masses seen diffusely on the left, more so inferiorly consistent with diffuse pleural metastases. Confluent soft tissue pleural-bases masses are seen inferiorly. There is a new moderate left pleural effusion. No new hilar adenopathy is seen. There is no axillary adenopathy. There may be two subtle areas of new pleural thickening inferiorly on the right. No new parenchymal abnormality is seen on the right. There is stable scarring in the anterior right upper lobe. The heart is not enlarged. No thoracic aortic aneurysm or dissection is seen. There are degenerative changes of the spine. No definite bone lesion is seen. There is a new 1.2 cm lymph node to the right of the distal thoracic aorta. IMPRESSION: Left anterior mediastinal mass has decreased in size as discussed above when compared to the prior study of 06/02/2019. However, there are new pleural-based soft tissue nodules and masses on the left, which are somewhat confluent inferiorly. 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 There is a new moderate pleural effusion. There may be two subtle areas of new pleural thickening inferiorly on the right. There is a new 1.2 cm lymph node to the right of the distal thoracic aorta. Electronically Signed by Nestor Chance MD 08/27/2019 12:41 P
--- NOTE | 2019-08-27 12:28 | REP ---
CT ABDOMEN WITH ORAL AND IV CONTRAST: TECHNIQUE: Axial contrast enhanced images from the lung bases to the pubic symphysis using 100 mL Isovue-370 intravenous contrast material with multiplanar reformations. The liver demonstrates multiple new nodules diffusely throughout the right and left lobes. All are slightly less than 1 cm in diameter. Findings are consistent with diffuse new live metastases. Patient has had prior cholecystectomy. There is unchanged prominence of the intrahepatic and extrahepatic bile ducts. The spleen is normal in size with no intrinsic abnormality. The adrenal glands are normal. The pancreas demonstrates no mass. The kidneys demonstrate no mass or hydronephrosis. There is mild atherosclerotic calcification of the abdominal aorta without aneurysm. There is new adenopathy in the gastrohepatic ligament and uma hepatis with multiple lymph nodes in these regions measuring mildly greater than 1 cm in short axis. Largest is 1.5 cm in short axis. There are also a few new subcentimeter periaortic lymph nodes more inferiorly with one lymph node at the level of the left kidney measuring 1.1 cm in short axis dimension. No bowel wall thickening or free fluid is seen. There are mild degenerative changes of the spine with no definite bone lesion. IMPRESSION: Multiple diffuse nodules throughout both lobes of the liver subcentimeter in diameter consistent with diffuse metastatic disease. There is new upper abdominal adenopathy as discussed above. Electronically Signed by Nestor Chance MD 08/27/2019 12:42 P
== END ==
LOC: M RAD 09:50
PROVIDERS: ATTEND Radiology Radiation Oncology
DX: C34.90 Malignant neoplasm of unspecified part of unspecified bronchus or lung (principal)
CPT/HCPCS: 71260; 74160; J1642; Q9963; Q9967

== ENCOUNTER → 2019-10-02 | Outpatient (CLI) | payer OTHER ==
[2019-10-02 08:49] LABS: BASO % 0.2 % (0.0-1.0); EOS % 0.6 % (0.0-3.0); HEMATOCRIT 33.6 % (36.0-47.0); HEMOGLOBIN 11.3 g/dl (12.0-15.5); LYMPH % 17.7 % (24.0-44.0); MEAN CORPUSCULAR HEMOGLOBIN 32.4 pg (27.0-33.0); MEAN CORPUSCULAR HGB CONC 33.6 g/dl (32.0-36.5); MEAN CORPUSCULAR VOLUME 96.3 fl (80.0-96.0); MONO # 0.6 10^3/uL (0.0-0.8); MONO % 11.2 % (0.0-5.0); NEUTROPHILS # 3.7 10^3/uL (1.5-8.5); NEUTROPHILS % 69.6 % (36.0-66.0); RED BLOOD COUNT 3.49 10^6/uL (4.00-5.40); WHITE BLOOD COUNT 5.4 10^3/uL (4.0-10.0)
[2019-10-02 09:26] LABS: PLATELET COUNT, AUTOMATED 75 10^3/uL (150-450)
== END ==
LOC: M LAB 08:08
PROVIDERS: ATTEND Internal Medicine Medical Oncology
DX: C34.90 Malignant neoplasm of unspecified part of unspecified bronchus or lung (principal)

== ENCOUNTER → 2019-10-23 | Outpatient (CLI) | payer OTHER ==
[~2019-10-23] MED LIST changes: +LIDO1PAD TOP; +OXYC-517 PO; +SENO8.6T10 PO; +VITA50005 PO
[2019-10-23 07:58] LABS: HEMATOCRIT 25.7 % (36.0-47.0); HEMOGLOBIN 8.8 g/dl (12.0-15.5); MEAN CORPUSCULAR HEMOGLOBIN 33.5 pg (27.0-33.0); MEAN CORPUSCULAR HGB CONC 34.2 g/dl (32.0-36.5); MEAN CORPUSCULAR VOLUME 97.7 fl (80.0-96.0); RED BLOOD COUNT 2.63 10^6/uL (4.00-5.40); WHITE BLOOD COUNT 2.5 10^3/uL (4.0-10.0)
[2019-10-23 08:15] LABS: PLATELET COUNT, AUTOMATED 31 10^3/uL (150-450)
[2019-10-23 08:19] LABS: LYMPHOCYTES 29 % (16-44); MONOCYTES 5 % (0-5); NEUTROPHILS 66 % (28-66); PLATELET ESTIMATE MARKED DECREASE (NORMAL)
== END ==
LOC: M LAB 07:07
PROVIDERS: ATTEND Internal Medicine Medical Oncology
DX: C34.90 Malignant neoplasm of unspecified part of unspecified bronchus or lung (principal)

== ENCOUNTER → 2019-10-30 | Outpatient (CLI) | payer OTHER ==
[~2019-10-30] MED LIST changes: +SM S1TAB6 PO
[2019-10-30 08:26] LABS: BASO % 0.6 % (0.0-1.0); EOS % 0.3 % (0.0-3.0); HEMATOCRIT 26.7 % (36.0-47.0); HEMOGLOBIN 8.9 g/dl (12.0-15.5); LYMPH # 0.7 10^3/uL (1.5-5.0); LYMPH % 20.6 % (24.0-44.0); MEAN CORPUSCULAR HEMOGLOBIN 33.6 pg (27.0-33.0); MEAN CORPUSCULAR HGB CONC 33.3 g/dl (32.0-36.5); MEAN CORPUSCULAR VOLUME 100.8 fl (80.0-96.0); MONO # 0.5 10^3/uL (0.0-0.8); MONO % 13.9 % (0.0-5.0); NEUTROPHILS # 2.3 10^3/uL (1.5-8.5); RED BLOOD COUNT 2.65 10^6/uL (4.00-5.40); WHITE BLOOD COUNT 3.6 10^3/uL (4.0-10.0)
[2019-10-30 08:28] LABS: PLATELET COUNT, AUTOMATED 48 10^3/uL (150-450)
== END ==
LOC: M LAB 07:58
PROVIDERS: ATTEND Internal Medicine Medical Oncology
DX: C34.90 Malignant neoplasm of unspecified part of unspecified bronchus or lung (principal)

== ENCOUNTER 2019-11-05 21:30 | Inpatient (IN) | payer OTHER ==
[~2019-11-05] VITALS: Ht 170.2 cm; Wt 86.3 kg
[~2019-11-05 21:30] MED LIST changes: -LIDO1PAD TOP; -OXYC-517 PO; -SENO8.6T10 PO; -SM S1TAB6 PO; -VITA50005 PO
[2019-11-05] MEDS ORDERED: NS 500 ML IV ONE (23:15)
[2019-11-05] MEDS: HYDROMORPHONE HCL 0.5 MG/ 0.5 ML SYRINGE (J1170 PER 1) IV PRN (23:43)
[2019-11-06] VITALS (14 sets, daily range): BP systolic 117–149; BP diastolic 63–94
[2019-11-06 00:03] LABS: BASO % 0.2 % (0.0-1.0); EOS % 0.4 % (0.0-3.0); HEMATOCRIT 26.4 % (36.0-47.0); HEMOGLOBIN 8.7 g/dl (12.0-15.5); LYMPH # 0.6 10^3/uL (1.5-5.0); LYMPH % 11.8 % (24.0-44.0); MEAN CORPUSCULAR HEMOGLOBIN 33.6 pg (27.0-33.0); MEAN CORPUSCULAR VOLUME 101.9 fl (80.0-96.0); MONO # 0.5 10^3/uL (0.0-0.8); MONO % 11.2 % (0.0-5.0); NEUTROPHILS # 3.6 10^3/uL (1.5-8.5); NEUTROPHILS % 75.3 % (36.0-66.0); RED BLOOD COUNT 2.59 10^6/uL (4.00-5.40); WHITE BLOOD COUNT 4.7 10^3/uL (4.0-10.0)
[2019-11-06 00:10] LABS: INR 1.21
[2019-11-06] MEDS: HYDROMORPHONE HCL 0.5 MG/ 0.5 ML SYRINGE (J1170 PER 1) IV PRN ×4 (00:11→23:46)
[2019-11-06] MEDS ORDERED: ISOVUE-370 76% 100ML VIAL As Ordered ONE (00:24)
[2019-11-06 00:29] LABS: PLATELET COUNT, AUTOMATED 70 10^3/uL (150-450)
[2019-11-06 01:47] LABS: ALBUMIN 3.6 GM/DL (3.2-5.2); ALT/SGPT 24 U/L (12-78); BILIRUBIN,DIRECT 0.2 MG/DL (0.0-0.2); BILIRUBIN,TOTAL 0.4 MG/DL (0.2-1.0); BLOOD UREA NITROGEN 13 MG/DL (7-18); CHLORIDE LEVEL 104 MEQ/L (98-107); CPK CREATINE PHOSPHOKINASE 74 U/L (26-192); CREATININE FOR GFR 0.65 MG/DL (0.55-1.30); GLOMERULAR FILTRATION RATE > 60.0 (>45); GLUCOSE, FASTING 102 MG/DL (70-100); SODIUM LEVEL 137 MEQ/L (136-145); TOTAL PROTEIN 6.8 GM/DL (6.4-8.2); TROPONIN I < 0.02 NG/ML (< 0.10)
[2019-11-06 02:13] LABS: CARBON DIOXIDE LEVEL 22 MEQ/L (21-32); NT-PRO BNP 338 PG/ML (<125); POTASSIUM SERUM 3.2 MEQ/L (3.5-5.1)
[2019-11-06 02:16] LABS: CK-MB VALUE MASS 2.9 NG/ML (<3.6); MB/CK RELATIVE INDEX 3.91 (< OR =4)
--- NOTE | 2019-11-06 02:51 | REPVR ---
PROCEDURE INFORMATION: Exam: CT Abdomen And Pelvis With Contrast Exam date and time: 11/05/2019 11:08 PM Age: 59 years old Clinical indication: Other: SOB; Additional info: Shortness of breath TECHNIQUE: Imaging protocol: Computed tomography of the abdomen and pelvis with intravenous contrast. Radiation optimization: All CT scans at this facility use at least one of these dose optimization techniques: automated exposure control; mA and/or kV adjustment per patient size (includes targeted exams where dose is matched to clinical indication); or iterative reconstruction. Contrast material: ISO; Contrast volume: 100 ml; Contrast route: INTRAVENOUS (IV); COMPARISON: CT ABD PELVIS WITH CONTRAST 06/02/2019 8:36 AM FINDINGS: Pleural space: Large left pleural effusion with multiple pleural nodules and plaques the. Atelectasis of visualized left lung with some shift of the heart toward the right. Some of the pleural lesions appear to invade intercostal spaces with nodular protrusion to the external aspect of the intercostal spaces. Liver: Vague or ill-defined low-attenuation lesion in the caudal right hepatic lobe measuring 19 mm and another in the medial hepatic dome measuring 19 mm which appear to be new since the prior study. There is question of an additional 11 mm lesion which is subcapsular in the lateral right hepatic lobe. Gallbladder and bile ducts: Status post cholecystectomy. Pancreas: Normal. No ductal dilation. Spleen: Normal. No splenomegaly. Adrenals: Normal. No mass. Kidneys and ureters: Normal. No hydronephrosis. Stomach and bowel: Unremarkable. No obstruction. No mucosal thickening. Appendix: A normal appendix is seen. Intraperitoneal space: Unremarkable. No free air. No significant fluid collection. Vasculature: There is a right external iliac stent and a left superficial femoral artery stent. There is mild calcification of the abdominal aorta with extension into the iliac arteries. Lymph nodes: Mild retrocrural adenopathy which is new since the prior study. Mild celiac adenopathy which continues as aorticocaval of left periaortic retroperitoneal adenopathy in the abdomen which is significantly increased since the prior study. There are some small nodes which extend into the pelvis along the iliac vasculature. Bladder: Unremarkable as visualized. Reproductive: Unremarkable as visualized. Bones/joints: There is question of some erosion of the undersurface of the left 9th rib posteriorly. Degenerative facet arthropathy of the lower lumbar spine with slight anterolisthesis of L4 relative to L5. Inferior endplate depression of L1 with sclerosis of the segment which is new since the prior study and may reflect a malignant compression. Soft tissues: See "Pleural space" finding. Other findings: Minimal right base fibro-atelectatic change. IMPRESSION: 1. New large left pleural effusion with multiple pleural implants or nodules with some extension or invasion through intercostal spaces since 06/02/2019. There is slight shift of the heart to the right and complete atelectasis of the visualized left lung base. Findings are consistent with malignancy. 2. New inferior endplate depression of L1 since the prior study with prominent sclerosis throughout the L1 segment which is viewed with suspicion for pathologic compression of the inferior endplate. 3. Retrocrural, celiac and aorticocaval and left periaortic adenopathy of the abdomen which is new since the prior study consistent with metastatic disease. There is slight extension along the proximal iliac arteries. 4. Status post cholecystectomy. Electronically signed by: Sam Horton On 11/06/2019 02:50:40 AM
--- NOTE | 2019-11-06 02:57 | REPVR ---
PROCEDURE INFORMATION: Exam: CT Angiography Chest With Contrast Exam date and time: 11/05/2019 11:08 PM Age: 59 years old Clinical indication: Shortness of breath; Patient HX: Lung cancer TECHNIQUE: Imaging protocol: Computed tomographic angiography of the chest with intravenous contrast. 3D rendering: MIP and/or 3D reconstructed images were created by the technologist. Radiation optimization: All CT scans at this facility use at least one of these dose optimization techniques: automated exposure control; mA and/or kV adjustment per patient size (includes targeted exams where dose is matched to clinical indication); or iterative reconstruction. Contrast material: ISO; Contrast volume: 100 ml; Contrast route: INTRAVENOUS (IV); COMPARISON: CT Chest with contrast 08/27/2019 11:03 AM FINDINGS: Tubes, catheters and devices: Right internal jugular Port-A-Cath which remains in position. Pulmonary arteries: The main pulmonary artery measures 30 mm. No pulmonary embolism is identified. Aorta: The ascending thoracic aorta measures 34 mm. Lungs: Near complete atelectasis of the left lung. Pleural space: Large left pleural effusion, significantly increased since the prior study with near complete atelectasis of the left lung. There are multiple pleural implants which appear to invade the adjacent intercostal spaces. Heart: There is shift of the heart and mediastinum to the right. Lymph nodes: Retrocrural, celiac and periaortic adenopathy in the upper abdomen. Anterior mediastinal nodes anterior to the left hemidiaphragm which are an unusual location measuring up to 13 mm consistent with metastatic disease. Gallbladder and bile ducts: Status post cholecystectomy. Bones/joints: Sclerosis of the L1 segment with inferior endplate focal depression which is new since the prior study and viewed with suspicion for pathologic fracture. Soft tissues: Unremarkable. IMPRESSION: 1. Large left pleural effusion, significantly increased since 08/27/2019 with near complete atelectasis of the left lung and slight shift of the heart and mediastinum to the right. There are multiple pleural implants and masses which are increased since the prior study with some showing invasion through intercostal spaces. 2. Anterior mediastinal nodes anterior to the left hemidiaphragm which are increased since the prior study consistent with metastatic disease. There is also increased retrocrural , celiac and periaortic abdominal adenopathy consistent with metastasis. 3. New sclerosis of L1 with inferior endplate depression which is new since the prior study consistent with pathologic fracture and metastasis. 4. No pulmonary embolism is identified. Electronically signed by: Sam Horton On 11/06/2019 02:57:17 AM
[2019-11-06] MEDS ORDERED: CLOP75TA2 PO (03:37)
[2019-11-06] MEDS ORDERED: VITA50005 PO (03:38)
[2019-11-06] MEDS ORDERED: OXYC-517 PO (03:38)
[2019-11-06] MEDS ORDERED: LIDO1PAD TOP (03:40)
[2019-11-06] MEDS ORDERED: NS 1,000 ML IV SCH (03:47)
[2019-11-06] MEDS ORDERED: MAALOX 30 ML SUSP *UDC PO PRN (04:00)
[2019-11-06] MEDS ORDERED: MOM 30ML SUSPENSION UDC PO PRN (04:00)
[2019-11-06] MEDS ORDERED: KCL 20MEQ IN 100ML SWI (KRUN) 20 MEQ in IV 1 EA IV ONE ×2 (04:00)
[2019-11-06] MEDS ORDERED: ACETAMINOPHEN TAB 650MG DOSE (2X325MG) PO PRN (04:00)
[2019-11-06 04:51] LABS: MAGNESIUM LEVEL 1.6 MG/DL (1.8-2.4)
[2019-11-06 05:07] LABS: HEMATOCRIT 24.8 % (36.0-47.0); HEMOGLOBIN 8.2 g/dl (12.0-15.5); MEAN CORPUSCULAR HEMOGLOBIN 33.9 pg (27.0-33.0); MEAN CORPUSCULAR HGB CONC 33.1 g/dl (32.0-36.5); MEAN CORPUSCULAR VOLUME 102.5 fl (80.0-96.0); RED BLOOD COUNT 2.42 10^6/uL (4.00-5.40); WHITE BLOOD COUNT 3.9 10^3/uL (4.0-10.0)
[2019-11-06 05:09] LABS: INR 1.17; PROTHROMBIN TIME 14.6 SECONDS (11.8-14.0)
[2019-11-06 05:14] LABS: PLATELET COUNT, AUTOMATED 62 10^3/uL (150-450)
[2019-11-06 05:18] LABS: BLOOD UREA NITROGEN 11 MG/DL (7-18); CALCIUM LEVEL 8.5 MG/DL (8.8-10.2); CARBON DIOXIDE LEVEL 26 MEQ/L (21-32); CHLORIDE LEVEL 105 MEQ/L (98-107); CREATININE FOR GFR 0.64 MG/DL (0.55-1.30); FERRITIN 348 NG/ML (8-252); GLOMERULAR FILTRATION RATE > 60.0 (>45); GLUCOSE, FASTING 99 MG/DL (70-100); IRON (FE) 59 UG/DL (50-170); PERCENT SATURATION 24.6 % (13.2-45.0); SODIUM LEVEL 137 MEQ/L (136-145); TOTAL IRON BINDING CAPACITY 240 UG/DL (250-450)
[2019-11-06] MEDS: KCL 10MEQ/100ML SWI (KRUN) 100 ML IV SCH ×2 (06:30→07:46)
--- NOTE | 2019-11-06 06:42 | HPEPDOC ---
[facility] Medical History & Physical Date of Admission Nov 06, 2019 Date of Service: Nov 06, 2019 Primary Care Physician: PRIYA POLLARD PA-C Attending Physician: BALJINDER WANG MD History and Physical TIME OF SERVICE: 6:08 AM CHIEF COMPLAINT: Shortness of breath HISTORY OF PRESENT ILLNESS: This is a 59-year-old female who presents with complaints of shortness of breath that began yesterday. She denies having cough, chest pain, back pain, fevers or chills. She is complaining of worsening of her chronic back pain. She has a history of metastatic lung cancer; Dr. Gavin quested admission for Pleurx catheter placement with pigtail by IR. 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 HOME MEDICATIONS: Please see below. PHYSICAL EXAMINATION: Vital Signs Date Time Temp Pulse Resp B/P (MAP) Pulse Ox O2 Delivery O2 Flow Rate FiO2 11/05/19 21:31 98.5 105 24 160/81 (107) 97 Room Air 11/05/19 22:00 3.0 GEN: well-nourished / well developed/ NAD INTEGUMENT: has generalized pallor HEENT: NCAT / lips acyanotic /mucus membranes moist and pink CVS: RRR/NMRG / Port-A-Cath placed at upper chest LUNGS: able to speak full sentences without stopping to take a breath, occasionally / lungs are clear to auscultation / she has decreased breath sounds especially at the left lower lung base MSK/EXTREMITIES: range of motion intact in all 4 extremities NEURO: CN 2-12 are grossly intact / speech is not dysarthric PSYCH: alert and oriented to person place and time/ able to understand and follow all commands LABORATORY DATA: 11/05/19 23:48 Immature Granulocyte % (Auto) 1.1, Neutrophils (%) (Auto) 75.3H, Lymphocytes (%) (Auto) 11.8L, Monocytes (%) (Auto) 11.2H, Eosinophils (%) (Auto) 0.4, Basophils (%) (Auto) 0.2, Neutrophils # (Auto) 3.6, Lymphocytes # (Auto) 0.6L, Monocytes # (Auto) 0.5, Eosinophils # (Auto) 0.0, Basophils # (Auto) 0.0, Nucleated Red Blood Cells % (auto) 0.4H, Immature Platelet Fraction 6.6, Prothrombin Time 15. 0H, Prothromb Time International Ratio 1.21, Anion Gap 11, Glomerular Filtration Rate > 60.0, Calcium Level 9.0, Magnesium Level 1.6L, Total Bilirubin 0.4, Direct Bilirubin 0.2, Aspartate Amino Transf (AST/SGOT) 38H, Alanine Aminotransferase (ALT/SGPT) 24, Alkaline Phosphatase 116, Total Creatine Kinase 74, Creatine Kinase MB 2.9, Creatine Kinase MB Relative Index 3.91, Troponin I < 0.02, HZ-Axx-I-Type Natriuretic Peptide 338H, Total Protein 6.8, Albumin 3.6, Albumin/Globulin Ratio 1.1L, Thyroid Stimulating Hormone (TSH) 1.710, Thyroxine (T4) 12.0 11/06/19 04:41: Nucleated Red Blood Cells % (auto) 0.0 11/06/19 04:42: Prothrombin Time 14.6H, Prothromb Time International Ratio 1.17, Anion Gap 6L, Glomerular Filtration Rate > 60.0, Calcium Level 8.5L, Iron Level 59, Total Iron Binding Capacity 240L, Transferrin % Saturation 24.6, Ferritin 348H IMAGING: CT chest "IMPRESSION: 1. Large left pleural effusion, significantly increased since 08/27/2019 with near complete atelectasis of the left lung and slight shift of the heart and mediastinum to the right. There are multiple pleural implants and masses which are increased since the prior study with some showing invasion through intercostal spaces. 2. Anterior mediastinal nodes anterior to the left hemidiaphragm which are increased since the prior study consistent with metastatic disease. There is also increased retrocrural , celiac and periaortic abdominal adenopathy consistent with metastasis. 3. New sclerosis of L1 with inferior endplate depression which is new since the prior study consistent with pathologic fracture and metastasis. 4. No pulmonary embolism is identified" CT abdomen and pelvis "IMPRESSION: 1. New large left pleural effusion with multiple pleural implants or nodules with some extension or invasion through i ntercostal spaces since 06/02/2019. There is slight shift of the heart to the right and complete atelectasis of the visualized left lung base. Findings are consistent with malignancy. 2. New inferior endplate depression of L1 since the prior study with prominent sclerosis throughout the L1 segment which is viewed with suspicion for pathologic compression of the inferior endplate. 3. Retrocrural, celiac and aorticocaval and left periaortic adenopathy of the abdomen which is new since the prior study consistent with metastatic disease. There is slight extension along the proximal iliac arteries. 4. Status post cholecystectomy. " MICROBIOLOGY: 11/05/19 Blood Culture, Received Pending 11/05/19 Blood Culture, Received Pending ASSESSMENT: Ms. Turcios is a 59-year-old with history of metastatic lung cancer, hep C, PUD, and vitamin D deficiency, presents with complaints of shortness of breath and will be admitted for management of malignant pleural effusion. PLAN: 1. Dyspnea secondary to malignant pleural effusion Plan: Admit to PCU/ nothing by mouth with IV fluids/will ask daytime team to consult IR for Pleurx cath with pigtail 2. Back pain likely due to Metastatic stage IV lung cell cancer She appears to have metastases to the spine and abdomen, but I'm not sure if these are new Plan: Obtain records from Dr. Gabriel Padilla's office at [facility] / left daytime team to consult pain management, to adjust her pain meds / resume oxycodone and lidocaine patch / add diclofenac patch 3. Bicytopenia Anemia, thrombocytopenia, likely due to malignancy Plan: Monitor for bleeding/follow-up CBC / follow up iron studies, B12, RBC folate 4. Hypokalemia Plan: Replete K and follow magnesium 5. PAD Plan: Plavix 6. Tobacco abuse Plan: Declined nicotine patch DVT PROPHYLAXIS: SCDs pending Pleurx cath placement DISPOSITION: Likely home after more than 2 midnight's stay Home Medications Scheduled Clopidogrel Bisulfate (Clopidogrel) 75 Mg Tablet, 75 MG PO QHS Ergocalciferol (Vitamin D2) (Vitamin D2) 50,000 Units Cap, 50,000 UNITS PO 1XWK SUNDAY AT QHS Lidocaine (Lidocaine) 5% Adh..patch, 1 PATCH TOP QPM USES ON LEFT SIDE OF TORSO ABOVE LUNG Sennosides/Docusate Sodium (Senokot-S Tablet) 1 Each Tablet, 1 TAB PO DAILY Sertraline HCl (Sertraline HCl) 50 Mg Tab, 25 MG PO QHS Scheduled PRN Oxycodone HCl (Oxycodone HCl) 5 Mg Tablet, 10 MG PO Q4H PRN for PAIN Allergies Coded Allergies: No Known Allergies (Unverified , 08/01/18) A-FIB/CHADSVASC A-FIB History Current/History of A-Fib/PAF?: No Current PO Anticoag Therapy: No BALJINDER WANG MD Nov 06, 2019 06:42
[2019-11-06] MEDS ORDERED: MORPHINE 2 MG/ML 1ML VIAL (J2270) IV ONE ×2 (06:45→16:30)
[2019-11-06] MEDS: DICLOFENAC EPOLAMINE 1.3 % PATCH TOP SCH ×2 (07:45→21:00)
[2019-11-06] MEDS ORDERED: POTASSIUM CHLORIDE 10 MEQ SR TABLET PO ONE (07:45)
[2019-11-06] MEDS: PANTOPRAZOLE 40MG TAB (PROTONIX) PO SCH (09:00)
[2019-11-06] MEDS: DOCUSATE SODIUM 100 MG CAP PO SCH ×2 (09:00→20:14)
[2019-11-06 10:41] LABS: MAGNESIUM LEVEL 1.6 MG/DL (1.8-2.4)
[2019-11-06 11:07] LABS: FOLATE 14.5 NG/ML (>5.4); VITAMIN B12 LEVEL 481 PG/ML (247-911)
[2019-11-06] MEDS: oxyCODONE 5MG TAB PO PRN ×3 (11:46→20:14)
[2019-11-06] MEDS ORDERED: flumazeniL 0.5 MG/5 ML VIAL As Ordered ONE (12:56)
[2019-11-06] MEDS ORDERED: MIDAZOLAM INJ 2MG/2ML VIAL (J2250 PER 1MG) As Ordered ONE (12:56)
[2019-11-06] MEDS ORDERED: LIDOCAINE 1% MDV 20ML VIAL As Ordered ONE (12:57)
[2019-11-06] MEDS ORDERED: MIDAZOLAM INJ 2MG/2ML VIAL (J2250 PER 1MG) IV ONE ×2 (13:11→13:13)
[2019-11-06] MEDS ORDERED: LIDOCAINE 1% MDV 20ML VIAL SC ONE ×2 (13:11→13:15)
[2019-11-06] MEDS ORDERED: MORPHINE 4 MG/ML 1ML VIAL/SYRINGE (J2270) As Ordered ONE (13:17)
[2019-11-06] MEDS ORDERED: MORPHINE 4 MG/ML 1ML VIAL/SYRINGE (J2270) IV ONE (13:20)
[2019-11-06] MEDS ORDERED: BISACODYL 10 MG SUPP PR PRN (13:45)
[2019-11-06] MEDS ORDERED: LEVALBUTEROL 1.25 MG/0.5 ML CONCENTRATE NEB NEB PRN (13:45)
[2019-11-06] MEDS ORDERED: NORCO, ANEXSIA 5/325MG TABLET (HYDROcodone/ACETAMINOPHEN) PO PRN (13:45)
[2019-11-06 13:57] LABS: LDH LACTATE DEHYDROGENASE 436 U/L (84-246)
--- NOTE | 2019-11-06 14:24 | IPNPDOC ---
Text Note Date of Service The patient was seen on 11/06/19. NOTE SUBJECTIVE: Patient was seen and examined sitting up in bed. She expresses frustration over not having the chest tube placed yet. She continues to have a lot of mid back pain and complains of dyspnea. She states that her symptoms are not worsening since last night. OBJECTIVE: VITAL SIGNS: See below GENERAL: Alert, comfortable, in no acute distress HEENT: Normocephalic, atraumatic, sclera anicteric moist mucous membranes NECK: no JVD noted CARDIOVASCULAR: Regular rate and rhythm, normal S1 and S2. No murmurs, rubs, or gallops RESPIRATORY: Diminished breath sounds in the left lung, Decreased breath sounds at the right lung base. Upper right lung clear to auscultation. Able to speak in full sentences. ABDOMEN: Soft, nontender, nondistended, bowel sounds present, no masses or hepatosplenomegaly appreciated EXTREMITIES: No cyanosis or edema. Pulses 2+/4 in bilateral upper and lower extremities NEUROLOGIC: Alert and oriented x3 to person, place and time. No focal deficits appreciated PSYCHIATRIC: Mood and affect appropriate ASSESSMENT/PLAN: 59-year-old female with history of metastatic lung cancer who presented with dyspnea, admitted for management of malignant pleural effusion # Dyspnea secondary to malignant pleural effusion - large left pleural effusion seen on chest CT - Dr. Pollock consulted for Pleurx cath placement, appreciate his help with this patient's care # Metastatic stage IV lung cell cancer - follows with Dr. Padilla at [facility] # Acute on chronic back pain - acute pain likely related to effusion, chronic pain related to malignancy - continue home pain medications for back pain, diclofenac patch added on admission - consider pain management consult if pain is not well controlled as her acute issue resolves # Anemia - Likely chronic secondary to malignancy - B12 and folate levels WNL, no iron deficiency - No evidence of active bleeding, monitor CBC daily. - Transfuse for hemoglobin less than 7.0 # Thombocytopenia - Likely secondary to malignancy - No evidence of active bleeding, monitor CBC daily. # Hypokalemia and hypomagnesemia - supplement as indicated # PAD - continue Plavix # Tobacco abuse - declined nicotine patch during admission DVT prophylaxis: Teds/SCDs Disposition: admitted inpatient PCU pending pleurx cath placement and clinical improvement Attending attestation: Patient independently evaluated, agree with resident's plan. EDER,Matt, I+O VS, Fishbone, I+O Laboratory Tests 11/05/19 23:48 11/06/19 04:41 11/06/19 04:42 Vital Signs Date Time Temp Pulse Resp B/P (MAP) Pulse Ox O2 Delivery O2 Flow Rate FiO2 11/06/19 12:05 97.0 128/64 (85) 11/06/19 12:03 84 19 100 Nasal Cannula 2.0 I&O- Last 24 Hours up to 6 AM 11/06/19 06:00 Intake Total 500 ml Balance 500 ml PRATIMA ENCARNACION D.O. Nov 06, 2019 14:24 EVIN ENCARNACION MD Nov 08, 2019 10:36
[2019-11-06 14:26] LABS: SOURCE, BODY FLUID PLEURAL
[2019-11-06 14:27] LABS: APPEARANCE, BODY FLUID HAZY (CLEAR); PLEURAL FL COLOR PALE YELLOW (COLORLESS)
[2019-11-06 14:34] LABS: PH BODY FLUID 7.484 UNITS (NOT ESTABLISHED); SOURCE, BODY FLUID pH PLEURAL
[2019-11-06] MEDS ORDERED: MAG SULF 1GM/100ML (MAG RUN) 1 GM in IV 1 EA IV ONE (15:00)
[2019-11-06 15:06] LABS: AMYLASE, BODY FLUID 30 U/L (NOT ESTABLISHED); CHOLESTEROL, BODY FLUID 88 MG/DL (NOT ESTABLISHED); LDH, BODY FLUID 654 U/L (NOT ESTABLISHED); SOURCE, BODY FLUID ALBUMIN PLEURAL; SOURCE, BODY FLUID AMYLASE PLEURAL; SOURCE, BODY FLUID CHOL PLEURAL; SOURCE, BODY FLUID GLUCOSE PLEURAL; SOURCE, BODY FLUID LDH PLEURAL; SOURCE, BODY FLUID TOT PROTEIN PLEURAL; SOURCE, BODY FLUID TRIG PLEURAL; TOTAL PROTEIN, BODY FLUID 4.7 G/DL (NOT ESTABLISHED); TRIGLYCERIDE, BODY FLUID 59 MG/DL (NOT ESTABLISHED)
[2019-11-06] MEDS: KETOROLAC 30 MG/ML 1ML VIAL IV SCH ×2 (15:30→20:13)
--- NOTE | 2019-11-06 15:58 | REP ---
REASON FOR EXAM: Status post chest tube insertion. The latest prior for comparison 07/07/2019. There is near complete opacification of the left hemithorax with a minimal amount of lucency seen in the left apical region and left upper lobe region. This has all developed since the latest prior exam. There is a left-sided thoracotomy tube seen, the tip of which is in the left upper hemithoracic region. The tip of the Mediport device is again seen to be within the superior vena cava. The right lung is clear and stable. The osseous structures are unchanged. Left cardiac border is silhouetted out by the abnormal opacification. IMPRESSION: Near complete opacification in the left hemithorax suggestive of large effusion/near complete lung consolidation/near complete atelectasis. Followup is recommended. Electronically Signed by Homre Garcia DO 11/06/2019 04:59 P
[2019-11-06] MEDS ORDERED: oxyCODONE 5MG TAB As Ordered ONE (16:11)
[2019-11-06] MEDS: LEVALBUTEROL 1.25 MG/0.5 ML CONCENTRATE NEB NEB SCH ×2 (17:13→20:28)
[2019-11-06] MEDS: CLOPIDOGREL 75 MG TAB PO SCH (20:14)
[2019-11-06] MEDS: SERTRALINE HCL 25 MG TABLET PO SCH (20:14)
--- NOTE | 2019-11-06 20:28 | RO ---
DATE OF PROCEDURE: 11/06/2019 PREPROCEDURE DIAGNOSIS: Malignant pleural effusion. POSTPROCEDURE DIAGNOSIS: Malignant pleural effusion. PROCEDURE: Insertion of left PleurX catheter. SURGEON: Tony Pollock MD CASING WRINGER OPERATOR: ANESTHESIA: DESCRIPTION OF PROCEDURE: Under satisfactory monitored sedation achieved with 4 mg of Versed and 3 mg of morphine, the patient was prepped and draped in the usual sterile fashion. Entry and exit sites were chosen. Exploring needle was placed into the left chest at the entry site with production of torito fluid. A wire was placed. Two incisions were made at the entry and exit sites, a tunnel was created between the two sites. PleurX catheter was pulled through the tunnel, and a peel-away introducer was then placed. The catheter was placed through the peel-away introducer and appropriately positioned. The catheter was secured to the chest wall with a #2-0 silk suture, and the entry incision was closed with a running #4-0 Monocryl subcuticular suture. The patient tolerated the procedure well and a chest x-ray is pending.
[2019-11-06] MEDS: RAMELTEON 8 MG TAB (ROZEREM) PO SCH (21:00)
[2019-11-06] MEDS: LIDOCAINE 5% (LIDODERM) PATCH TOP SCH (21:00)
--- NOTE | 2019-11-06 21:37 | CR ---
DATE OF CONSULTATION: 11/06/2019 I am asked to see Mrs. Turcios by the hospitalist service, by Dr. Hamm, for a large pleural effusion. HISTORY OF THE PRESENT ILLNESS: The patient is a 59-year-old white female whose story starts in February 2018 when she first presented to urgent care with a cough and fever. Chest x-ray was taken, which showed a large mediastinal mass. She underwent biopsy, which showed small cell carcinoma. She has undergone chemotherapy and radiation therapy. Her pre-oncology treatment pulmonary function tests (PFTs) showed an FEV1 of 2.11, which is 74% of predicted and a DLCO of 17.53, which was 77% of predicted. This past week she has become more short of breath, such that today she could not even walk around her home. She has a constant chronic left-sided sharp chest pain, which is thought secondary to pleural metastases. She sleeps on a couch propped up. She denies awaking short of breath. She has just a slight cough. No sputum production. No fever, chills, or sweats. She had her bottom teeth removed and that has caused her to have difficulty eating. She states that she has lost 20 pounds. I suspect this is secondary to her metastatic carcinoma. CT scan was done on her today, which showed that her left chest is completely filled with compression of the left lung. PAST MEDICAL HISTORY: The above small cell carcinoma. According to the patient, no other medical illnesses. However, I do see that Dr. Graham has treated her for peripheral vascular disease in April of 2019. She is also listed in our office notes of having a history of chronic hepatitis. Her chronic hepatitis is hepatitis C. MEDICATIONS AT HOME: Include Plavix 75 mg nightly, which she has not taken for a number of weeks, a lidocaine patch over her chest, sertraline 25 mg nightly, as well as Percocet 5/325 every 4 hours as needed for pain. HABITS: Denies alcohol use. She has a 45 pack-year history of smoking, at one point smoking 1-1/2 packs per day. She is still an active smoker. ALLERGIES: None. 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 FAMILY HISTORY: Not pertinent to the acute situation. REVIEW OF SYSTEMS: CONSTITUTIONAL: See history of the present illness. Without fevers, chills, sweats or night sweats. She does have a 20-pound weight loss, as noted above. EYES: Without diplopia, without amaurosis fugax. NOSE: Without epistaxis. MOUTH: She is now edentulous, has upper dentures. RESPIRATORY: See history of the present illness. CARDIAC: Without known prior myocardial infarctions. Without tachycardia or palpitations. Without peripheral edema. GASTROINTESTINAL (GI): Without nausea, vomiting, diarrhea, constipation, melena, hematochezia. GENITOURINARY (): Without dysuria, hematuria, or prior renal stones. ENDOCRINE: Without diabetes, without thyroid disease. NEUROLOGIC: Without paresthesias, paralyses. Walks with a normal gait. Without prior seizures. PSYCHIATRIC: Without active pathological psychoses, anxieties or depression. PHYSICAL EXAMINATION: Well-developed, well-nourished white female complaining of left posterior chest pain and shortness of breath. VITAL SIGNS: Temperature is 97.0, heart rate is 101 and is sinus rhythm, respiratory rate of 24 without the use of accessory muscles who is 100% saturated on two liters nasal cannula and whose blood pressure is 128/64. EYES: Pupils equal, round and reactive to light. Extraocular motor intact. Sclerae nonicteric. NOSE: Without deformity. MOUTH: Edentulous. Lips and commissures without lesions. Mucous membranes are pink and moist. NECK: Neck is supple. There is no jugular venous distention. No subcutaneous emphysema. Trachea is midline. There is no thyromegaly or lymphadenopathy. LUNGS: Show decreased breath sounds on the left side with a dull percussion note throughout. Right side shows normal vesicular sounds. ABDOMEN: Soft, nontender, except in the epigastrium where she is tender to deep palpation. Bowel sounds are positive. There is no costovertebral angle tenderness. EXTREMITIES: Show no pretibial edema. No calf tenderness. No differential swelling of the upper extremities. SKIN: Warm, dry and perfused without cyanosis or mottling, including that of the nail beds and the knees. NEUROLOGIC: Shows II-XII intact along with gross motor and gross sensation intact. Gait is not tested. PSYCHIATRIC: Shows her to be awake and alert, oriented times three with appropriate mood and affect and conversational. Her white count is 3.9 with a hemoglobin and hematocrit of 8.2 and 24.8, and a platelet count of 62. Differential shows 75% neutrophils, 11% lymphocytes, 11% monocytes. No immature forms. No toxic granulations. Chemistries show a potassium of 3.0 with remainder of electrolytes normal. BUN and creatinine are 11 and 0.64, glucose of 99 with a calcium of 8.5. Magnesium is 1.6. PT/INR are 14.6 and 1.17 respectively. There is no preprocedure chest x-ray. CT angio does not show pulmonary emboli. She has a completely filled left hemithorax. The left lung is compressed. There is just a small portion of aeration and probably in the lingula. There is no pericardial effusion. I cannot see any underlying masses at this point in time. She does have what looks to be metastatic implants, particularly in the lower chest laterally and medially. There is a complete rim of metastatic disease over the diaphragm and over the lower mediastinum adjacent to the vertebra concentric up to around the entire chest wall. IMPRESSION: 1. Small cell carcinoma, metastatic. 2. Probable malignant pleural effusion. 3. Probable pleural implants. 4. History of hepatitis C. 5. Shortness of breath secondary to the effusion. 6. Status post chemoradiation. PLAN AND DISCUSSION: I will place a PleurX catheter as this effusion will no doubt return quickly. She has metastatic implants, which are no doubt causing her pain. I am not sure if these can be irradiated with palliation. I will only drain a liter off her now; I suspect she has at least 2-1/2 liters in. Will drain the other liter off tomorrow to avoid potential complications of postexpansion pulmonary edema. Will teach her how to use the PleurX bottles. [facility]
[2019-11-07] VITALS: BP 117/63
[2019-11-07] MEDS: LEVALBUTEROL 1.25 MG/0.5 ML CONCENTRATE NEB NEB SCH ×4 (01:57→20:11)
[2019-11-07 04:00] VITALS: BP 121/59
[2019-11-07] MEDS: HYDROMORPHONE HCL 0.5 MG/ 0.5 ML SYRINGE (J1170 PER 1) IV PRN ×5 (04:08→22:32)
[2019-11-07] MEDS: oxyCODONE 5MG TAB PO PRN ×3 (06:28→20:21)
[2019-11-07] MEDS: ONDANSETRON 4MG/2ML VIAL IV PRN (06:28)
[2019-11-07 07:32] LABS: BASO % 0.2 % (0.0-1.0); EOS % 0.9 % (0.0-3.0); HEMATOCRIT 24.7 % (36.0-47.0); HEMOGLOBIN 8.2 g/dl (12.0-15.5); LYMPH # 0.5 10^3/uL (1.5-5.0); LYMPH % 10.2 % (24.0-44.0); MEAN CORPUSCULAR HEMOGLOBIN 34.6 pg (27.0-33.0); MEAN CORPUSCULAR HGB CONC 33.2 g/dl (32.0-36.5); MEAN CORPUSCULAR VOLUME 104.2 fl (80.0-96.0); MONO # 0.4 10^3/uL (0.0-0.8); MONO % 9.7 % (0.0-5.0); NEUTROPHILS # 3.5 10^3/uL (1.5-8.5); NEUTROPHILS % 78.3 % (36.0-66.0); RED BLOOD COUNT 2.37 10^6/uL (4.00-5.40); WHITE BLOOD COUNT 4.4 10^3/uL (4.0-10.0)
[2019-11-07 07:33] LABS: PLATELET COUNT, AUTOMATED 64 10^3/uL (150-450)
[2019-11-07 07:55] LABS: BLOOD UREA NITROGEN 12 MG/DL (7-18); CALCIUM LEVEL 8.4 MG/DL (8.8-10.2); CARBON DIOXIDE LEVEL 25 MEQ/L (21-32); CHLORIDE LEVEL 106 MEQ/L (98-107); CREATININE FOR GFR 0.59 MG/DL (0.55-1.30); GLOMERULAR FILTRATION RATE > 60.0 (>45); GLUCOSE, FASTING 114 MG/DL (70-100); MAGNESIUM LEVEL 1.9 MG/DL (1.8-2.4); POTASSIUM SERUM 3.4 MEQ/L (3.5-5.1); SODIUM LEVEL 135 MEQ/L (136-145)
[2019-11-07] MEDS: **NOTE PATIENT COMMENT** MISC XX SCH (09:00)
[2019-11-07] MEDS ORDERED: POTASSIUM CHLORIDE 10 MEQ SR TABLET PO ONE (09:00)
[2019-11-07] MEDS: DOCUSATE SODIUM 100 MG CAP PO SCH ×2 (09:24→20:21)
[2019-11-07] MEDS: PANTOPRAZOLE 40MG TAB (PROTONIX) PO SCH (09:24)
--- NOTE | 2019-11-07 10:05 | ECGEPIP ---
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
--- NOTE | 2019-11-07 10:13 | IPNPDOC ---
Text Note Date of Service The patient was seen on 11/07/19. NOTE SUBJECTIVE: Patient was seen and examined sitting up in bed. She states she is still feeling sore but her pain is improved compared to yesterday. She does not have much of an appetite this morning and feels tired. Otherwise no complaints. Her dyspnea at rest is improved but she has not moved around much yet to see if she has dyspnea with exertion. We discussed that she will be seen by PT today. OBJECTIVE: VITAL SIGNS: See below GENERAL: Alert, comfortable, in no acute distress HEENT: Normocephalic, atraumatic, sclera anicteric moist mucous membranes NECK: no JVD noted CARDIOVASCULAR: Regular rate and rhythm, normal S1 and S2. No murmurs, rubs, or gallops RESPIRATORY: Left lung sounds diminished at the base up to the mid lung jiang, left upper lung field clear to auscultation, right lung sounds clear to auscultation. Able to speak in full sentences. PleurX cathether in place on the left chest wall. ABDOMEN: Soft, nontender, nondistended, bowel sounds present, no masses or hepatosplenomegaly appreciated EXTREMITIES: No cyanosis or edema. Pulses 2+/4 in bilateral upper and lower extremities NEUROLOGIC: Alert and oriented x3 to person, place and time. No focal deficits appreciated PSYCHIATRIC: Mood and affect appropriate ASSESSMENT/PLAN: 59-year-old female with history of metastatic lung cancer who presented with dyspnea, admitted for management of malignant pleural effusion # Dyspnea secondary to malignant pleural effusion - large left pleural effusion seen on chest CT - Dr. Pollock consulted for PleurX cath placement, appreciate his help with this patient's care - CXR this morning shows improvement of left lung opacification # Metastatic stage IV lung cell cancer - follows with Dr. Padilla at [facility] # Acute on chronic back pain - acute pain likely related to effusion, chronic pain related to malignancy - continue home pain medications for back pain, diclofenac patch added on admission - consider pain management consult if pain is not well controlled as her acute issue resolves # Anemia - Likely chronic secondary to malignancy - B12 and folate levels WNL, no iron deficiency - No evidence of active bleeding, monitor CBC daily. - Transfuse for hemoglobin less than 7.0 # Thombocytopenia - Likely secondary to malignancy - No evidence of active bleeding, monitor CBC daily. # Hypokalemia and hypomagnesemia - supplement as indicated # PAD - continue Plavix # Tobacco abuse - declined nicotine patch during admission DVT prophylaxis: Teds/SCDs Disposition: admitted inpatient PCU pending clinical improvement Attending attestation: Patient independently evaluated, agree with resident's plan. VS,Fishbone, I+O VS, Fishbone, I+O Laboratory Tests 11/07/19 07:10 Vital Signs Date Time Temp Pulse Resp B/P (MAP) Pulse Ox O2 Delivery O2 Flow Rate FiO2 11/07/19 09:23 22 11/07/19 08:00 97.0 83 97 Nasal Cannula 2.0 11/07/19 06:28 121/59 I&O- Last 24 Hours up to 6 AM 11/07/19 06:00 Intake Total 840 ml Output Total 0 ml Balance 840 ml PRATIMA ENCARNACION D.O. Nov 07, 2019 10:13 EVIN ENCARNACION MD Nov 08, 2019 10:39
--- NOTE | 2019-11-07 10:16 | REP ---
CHEST, TWO VIEWS: Two views of the chest performed. COMPARISON: 11/06/2019 Previously noted large left effusion has decreased with moderate residual. Patchy atelectasis/infiltrate is seen in the visualized left lung. No infiltrate is seen in the right lung. Heart size is not well evaluated. Right central venous catheter is seen with the tip in the superior vena cava. Electronically Signed by Nestor Chance MD 11/09/2019 10:59 P
[2019-11-07] MEDS ORDERED: ISOVUE-370 76% 100ML VIAL As Ordered ONE (10:49)
[2019-11-07 12:00] VITALS: BP 129/61
[2019-11-07] MEDS: DICLOFENAC EPOLAMINE 1.3 % PATCH TOP SCH ×2 (13:44→20:21)
--- NOTE | 2019-11-07 14:03 | REP ---
REASON: Followup. Latest prior for comparison 11/06/2019. CONTRAST: 100 mL of Isovue 370. The mediastinum and pulmonary main are unchanged. The small pericardial effusion is unchanged. The left pleural effusion has significantly decreased. A left thoracotomy tube is seen representing a change from the prior exam. There is no change in the imaged upper abdomen or imaged osseous structures. Evaluation of the lung jiang shows ground-glass opacities and increased interstitial markings throughout the newly aerated portions of the left lung. These could obscure a significant mass or nodule. No significant change is seen in the right lung. Right basilar subsegmental atelectatic change is present. IMPRESSION: 1. Improved left pleural effusion. 2. Left lung interstitial edema and patchy airspace edema. Followup is recommended. 3. Other findings as described above. Electronically Signed by Homer Garcia DO 11/07/2019 04:00 P
[2019-11-07 16:00] VITALS: BP 123/60
[2019-11-07] MEDS ORDERED: SLF 3 ML SYR IV PRN (16:45)
[2019-11-07 18:00] VITALS: BP 126/67
[2019-11-07 20:00] VITALS: BP 132/63
[2019-11-07] MEDS: SERTRALINE HCL 25 MG TABLET PO SCH (20:21)
[2019-11-07] MEDS: CLOPIDOGREL 75 MG TAB PO SCH (20:21)
[2019-11-07] MEDS: LIDOCAINE 5% (LIDODERM) PATCH TOP SCH (20:21)
[2019-11-07] MEDS: SLF 3 ML SYR IV SCH (20:22)
[2019-11-07] MEDS: RAMELTEON 8 MG TAB (ROZEREM) PO SCH (20:22)
--- NOTE | 2019-11-07 21:42 | IPN ---
DATE: 11/07/2019 Ms. Turcios was drained of another 750 mL today. Her chest x-ray was done prior to drainage and still showed a moderate pleural effusion. She is having an intense amount of pain, not from the PleurX catheter and drainage but rather from the numerous large implants of adenocarcinoma along the chest wall in the parietal pleura. Her vital signs show a maximum temperature (T max) of 97.8 with a heart rate that ranges between 83 and 78 and is sinus rhythm, respiratory rate of 20 to 22 without the use of accessory muscles who is 97% saturated on 2 liters nasal cannula and whose blood pressure is ranging between 129/61 to 117/63. Her intake and output over the past 24 hours has been recorded as 1340 in and nothing out. That, of course, was not taking into account the chest tube drainage when I drained 1000 mL, which was not recorded. Her intake and output are essentially inaccurate. On physical examination, her lungs show equal breath sounds now on both sides. Percussion note is full to the diaphragm. I hear scattered rhonchi and rales on the left side. Cardiac exam is without murmurs, clicks, gallops or rubs. I cannot feel her point of maximum impulse (PMI). S1, S2 are normal. Abdomen is soft and nontender. Bowel sounds are positive. There is no hepatomegaly. No costovertebral angle (CVA) tenderness. Extremities show no pretibial edema. No calf tenderness. No differential swelling of the upper extremities. Her skin is warm, dry and perfused without cyanosis or mottling, including that of the nail beds and the knees. Neck is supple. There is no jugular venous distention, no subcutaneous emphysema. Trachea is midline. Mouth shows her mucous membranes to be pink and moist. Lips and commissures without lesions. There is no thrush. She is edentulous. Eyes show her pupils to be equal and reactive. Extraocular motions are intact. Sclerae anicteric. Neurologic shows II-XII intact along with gross motor and gross sensation intact. Gait is not tested. Psychiatric shows her to be awake and alert, oriented times three with appropriate mood and affect and conversational. Her white count today is 4.4 with a hemoglobin and hematocrit of 8.2 and 24.7, unchanged from yesterday with a platelet count of 64. Differential shows 78% neutrophils, 10% lymphocytes and 9% monocytes. Electrolytes show a potassium of 3.4 with a BUN and creatinine of 12 and 0.59, a glucose of 114, and a calcium of 8.4. Magnesium is 1.9. Her pleural fluid has been returned with a pH of 7.48, with a glucose of 90, and an LDH of 654 with a corresponding serum LDH of 436. She has 97% mononuclears or lymphocytes and 2% neutrophils. This, therefore, looks like an exudative lymphocytic effusion, most consistent with a malignant pleural effusion. Her pathology is still pending. I did obtain a CT scan on her today for the benefit of her oncologist in [place]. The CT was done after drainage. She still has a small amount of pleural effusion at the base. The pleural catheter looks to be in good place. She has what looks to be most likely postexpansion pulmonary edema with alveolar infiltrate in upper and lower lobes on the left side. There are numerous and almost concentric pleural implants along the left lower hemithorax. IMPRESSION: 1. Metastatic small cell carcinoma. 2. Probable malignant effusion. 3. Pleural implants. 4. History of hepatitis C. 5. Shortness of breath secondary to effusion, improved. 6. Status post chemoradiation. PLAN AND DISCUSSION: Her pain control is going to be the most problematic thing she faces. She has pleural implants, which are quite extensive. They are no doubt causing her chest wall pain. I will instruct her to drain the catheter every 2 days or when she becomes symptomatically short of breath. I have spoken to Dr. Hamm on the hospitalist service, and we should plan for discharge in the morning. [place]
[2019-11-08] VITALS: BP 146/68
[2019-11-08] MEDS: oxyCODONE 5MG TAB PO PRN ×3 (01:47→10:54)
[2019-11-08] MEDS: ONDANSETRON 4MG/2ML VIAL IV PRN (01:47)
[2019-11-08] MEDS: LEVALBUTEROL 1.25 MG/0.5 ML CONCENTRATE NEB NEB SCH ×2 (02:00→07:32)
[2019-11-08 04:00] VITALS: BP 147/67
[2019-11-08] MEDS: HYDROMORPHONE HCL 0.5 MG/ 0.5 ML SYRINGE (J1170 PER 1) IV PRN ×2 (05:17→09:48)
[2019-11-08 05:42] LABS: BASO % 0.2 % (0.0-1.0); EOS % 0.6 % (0.0-3.0); HEMATOCRIT 23.9 % (36.0-47.0); HEMOGLOBIN 7.9 g/dl (12.0-15.5); LYMPH # 0.4 10^3/uL (1.5-5.0); LYMPH % 7.8 % (24.0-44.0); MEAN CORPUSCULAR HEMOGLOBIN 34.3 pg (27.0-33.0); MEAN CORPUSCULAR HGB CONC 33.1 g/dl (32.0-36.5); MEAN CORPUSCULAR VOLUME 103.9 fl (80.0-96.0); MONO # 0.4 10^3/uL (0.0-0.8); MONO % 8.8 % (0.0-5.0); NEUTROPHILS % 81.8 % (36.0-66.0); WHITE BLOOD COUNT 4.9 10^3/uL (4.0-10.0)
[2019-11-08 05:43] LABS: PLATELET COUNT, AUTOMATED 66 10^3/uL (150-450)
[2019-11-08 05:55] LABS: BLOOD UREA NITROGEN 10 MG/DL (7-18); CALCIUM LEVEL 8.6 MG/DL (8.8-10.2); CARBON DIOXIDE LEVEL 25 MEQ/L (21-32); CHLORIDE LEVEL 106 MEQ/L (98-107); CREATININE FOR GFR 0.55 MG/DL (0.55-1.30); GLOMERULAR FILTRATION RATE > 60.0 (>45); GLUCOSE, FASTING 107 MG/DL (70-100); MAGNESIUM LEVEL 1.7 MG/DL (1.8-2.4); POTASSIUM SERUM 3.6 MEQ/L (3.5-5.1); SODIUM LEVEL 136 MEQ/L (136-145)
[2019-11-08] MEDS: SLF 3 ML SYR IV SCH (06:06)
[2019-11-08 07:21] VITALS: BP 133/61
[2019-11-08] MEDS ORDERED: MAG SULF 1GM/100ML (MAG RUN) 1 GM in IV 1 EA IV ONE (08:00)
[2019-11-08] MEDS: DICLOFENAC EPOLAMINE 1.3 % PATCH TOP SCH (08:30)
[2019-11-08] MEDS: PANTOPRAZOLE 40MG TAB (PROTONIX) PO SCH (08:30)
[2019-11-08] MEDS: DOCUSATE SODIUM 100 MG CAP PO SCH (08:30)
[2019-11-08] MEDS: **NOTE PATIENT COMMENT** MISC XX SCH (08:31)
[2019-11-08] MEDS ORDERED: SODIUM CHLORIDE 0.9% INJ 10 ML SYR IV SCH (09:00)
[2019-11-08] MEDS ORDERED: SODIUM CHLORIDE 0.9% INJ 10 ML SYR IV PRN (09:00)
[2019-11-08] MEDS ORDERED: SENO8.6T10 PO (11:21)
[2019-11-08 12:00] VITALS: BP 123/68
--- NOTE | 2019-11-08 13:02 | DS.PDOC ---
Discharge Summary General Date of Admission Nov 06, 2019 at 12:14 Date of Discharge 11/08/2019 Discharge Summary PRIMARY CARE PHYSICIAN: Dr. Josef Alfonso MD ATTENDING AT TIME OF DISCHARGE: Dr. Erin Jordan, DISCHARGE DIAGNOS(E)S: Stage IV metastatic small cell carcinoma of lung Probable malignant effusion Pleural implants History of hepatitis C Shortness of breath secondary to pleural effusion Status post chemoradiation Acute on chronic back pain Anemia Thrombocytopenia Hypokalemia Hypomagnesemia Peripheral arterial disease Tobacco abuse HPI & HOSPITAL COURSE: Patient presented to the emergency department with acute shortness of breath. On admission she was found to have a large left pleural effusion which is assumed to be a malignant effusion due to her stage IV metastatic small cell carcinoma lung cancer. On the CT she was noted to have multiple pleural implants as well, which are also contributing to the presence of the pleural effusion, and her pain. Cardiothoracic surgery was a consult it, they placed a left PleurX Svetlana ter. Her effusion has been successfully drained, and she does appear to be stable for discharge at this time. It is recommended that she drain the catheter every other day, or more frequently if necessary for shortness of breath. PHYSICAL EXAMINATION ON DISCHARGE: GENERAL: Awake, alert, oriented 3. She is in no acute distress at this time. CARDIOVASCULAR EXAMINATION: Regular rate and rhythm, with no rubs, gallops, or murmur. RESPIRATORY EXAMINATION: Minimal crackles noted at the left base, but otherwise the remainder of the lung jiang sound clear. ABDOMINAL EXAMINATION: Soft, nontender, nondistended. Bowel sounds present. EXTREMITIES: No clubbing or edema noted. 2+ pulses in the radial bilaterally. DISPOSITION: Home, with home health services DISCHARGE INSTRUCTIONS: She will need a follow-up with Dr. Pollock of cardiothoracic surgery 10 days from now. Diet and activity as tolerated. Recommend draining Pleurx catheter every other day, or more frequently as needed for shortness of breath. If symptoms return, or if you experience worsening of your symptoms, please call your doctor or return to the emergency department. Vital Signs/I&Os Vital Signs Date Time Temp Pulse Resp B/P (MAP) Pulse Ox O2 Delivery O2 Flow Rate FiO2 11/08/19 12:00 97.1 86 22 123/68 (86) 98 Room Air 11/07/19 18:00 2.0 I&O- Last 24 Hours up to 6 AM 11/08/19 06:00 Intake Total 878 ml Output Total 1050 ml Balance -172 ml Laboratory Data Labs 24H Laboratory Tests 2 11/08/19 05:18: Immature Granulocyte % (Auto) 0.8, Neutrophils (%) (Auto) 81.8H, Lymphocytes (%) (Auto) 7.8L, Monocytes (%) (Auto) 8.8H, Eosinophils (%) (Auto) 0.6, Basophils (%) (Auto) 0.2, Neutrophils # (Auto) 4.0, Lymphocytes # (Auto) 0.4L, Monocytes # (Auto) 0.4, Eosinophils # (Auto) 0.0, Basophils # (Auto) 0.0, Nucleated Red Blood Cells % (auto) 0.0, Anion Gap 5L, Glomerular Filtration Rate > 60.0, Calcium Level 8.6L, Magnesium Level 1.7L CBC/BMP Laboratory Tests 11/08/19 05:18 Microbiology Microbiology 11/06/19 Acid Fast Stain, Received Pending 11/06/19 Mycobacterial Culture, Received Pending 11/06/19 Fungal Smear, Received Pending 11/06/19 Fungal Culture, Received Pending 11/06/19 Gram Stain - Final, Complete 11/06/19 Body Fluid Culture - Final, Complete 11/06/19 Anaerobic Culture - Final, Complete 11/05/19 Blood Culture - Preliminary, Resulted No Growth after 48 hours. All Specime... 11/05/19 Blood Culture - Preliminary, Resulted No Growth after 48 hours. All Specime... Discharge Medications Scheduled Clopidogrel Bisulfate (Clopidogrel) 75 Mg Tablet, 75 MG PO QHS, (Reported) Ergocalciferol (Vitamin D2) (Vitamin D2) 50,000 Units Cap, 50,000 UNITS PO 1XWK, (Reported) SUNDAY AT QHS Lidocaine (Lidocaine) 5% Adh..patch, 1 PATCH TOP QPM, (Reported) USES ON LEFT SIDE OF TORSO ABOVE LUNG Sennosides/Docusate Sodium (Senokot-S Tablet) 1 Each Tablet, 1 TAB PO DAILY Sertraline HCl (Sertraline HCl) 50 Mg Tab, 25 MG PO QHS, (Reported) Scheduled PRN Oxycodone HCl (Oxycodone HCl) 5 Mg Tablet, 10 MG PO Q4H PRN for PAIN, (Reported) Allergies Coded Allergies: No Known Allergies (Unverified , 08/01/18) ERIN JORDAN DO Nov 08, 2019 13:02
--- NOTE | 2019-11-09 07:56 | REP ---
PA LATERAL CHEST: 11/08/2019. COMPARISON: CT and chest x-ray, 11/07/2019. CLINICAL HISTORY: Lung carcinoma, malignant effusion. FINDINGS: Right lung is well inflated. There is an indwelling port catheter via the right subclavian route, unchanged. There is a further slight decrease in the volume of the effusion in the left hemithorax with a small caliber chest tube in place extending horizontally across the left lung base and ascending to the left hilar region just posterior to it and abutting the pleura. No pneumothorax. Some minor subsegmental atelectatic change in the right base. Patchy airspace opacities in the mid and upper lung zone on the left show slight improvement which may be due to better level of inflation and smaller effusion. Cardiomediastinal silhouette, unchanged. No other significant or new findings. IMPRESSION: 1. Small caliber left chest tube with mild improvement in the left pleural effusion and improved expansion of the left lung with less density to the patchy diffuse air space opacities in the left mid and upper lung zone. No pneumothorax. 2. Port catheter via the right subclavian route, unchanged. Electronically Signed by Rigo Tilley MD 11/09/2019 08:44 A
== END 2019-11-08 12:48 | disposition home health service (06) | DRG 121 ==
LOC: M ED 21:30 → ENRESERV 11-06 11:29 → M PCU 11-06 12:14
PROVIDERS: ADMIT Internal Medicine; ATTEND Neuromusculoskeletal Medicine & OMM
PROC: 0BHQ3YZ Insertion of Other Device into Pleura, Percutaneous Approach (ICD-10-PCS; principal; 2019-11-06)
DX: C34.90 Malignant neoplasm of unspecified part of unspecified bronchus or lung (principal); J91.0 Malignant pleural effusion; C79.51 Secondary malignant neoplasm of bone; D69.6 Thrombocytopenia, unspecified; E83.42 Hypomagnesemia; E87.6 Hypokalemia; F17.200 Nicotine dependence, unspecified, uncomplicated; I73.9 Peripheral vascular disease, unspecified; B18.2 Chronic viral hepatitis C; D63.0 Anemia in neoplastic disease; Z79.899 Other long term (current) drug therapy; E78.5 Hyperlipidemia, unspecified

== ENCOUNTER 2019-11-13 14:21 | Inpatient (IN) | payer OTHER ==
[~2019-11-13] VITALS: Ht 170.2 cm; Wt 85.0 kg
[~2019-11-13 14:21] MED LIST changes: +LIDO1PAD TOP; +OXYC-517 PO; +SENO8.6T10 PO; +SODIUM CHLORIDE 0.9% INJ 10 ML SYR IV SCH; +VITA50005 PO
[2019-11-13] MEDS ORDERED: SM S1TAB6 PO (14:32)
[2019-11-13] MEDS: MORPHINE 4 MG/ML 1ML VIAL/SYRINGE (J2270) IV PRN ×2 (16:03→19:44)
[2019-11-13] MEDS ORDERED: fentaNYL 25 MCG/HR PATCH TOP ONE (16:15)
[2019-11-13] MEDS ORDERED: FENTANYL REMOVAL DOCUMENTATION MISC TD SCH (16:15)
[2019-11-13] MEDS ORDERED: oxyCODONE 20 MG CR TAB PO ONE (16:15)
[2019-11-13 16:22] LABS: BASO % 0.3 % (0.0-1.0); EOS % 0.1 % (0.0-3.0); HEMATOCRIT 26.2 % (36.0-47.0); HEMOGLOBIN 8.4 g/dl (12.0-15.5); LYMPH # 0.6 10^3/uL (1.5-5.0); LYMPH % 8.8 % (24.0-44.0); MEAN CORPUSCULAR HEMOGLOBIN 32.8 pg (27.0-33.0); MEAN CORPUSCULAR HGB CONC 32.1 g/dl (32.0-36.5); MEAN CORPUSCULAR VOLUME 102.3 fl (80.0-96.0); MONO # 0.8 10^3/uL (0.0-0.8); MONO % 12.3 % (0.0-5.0); NEUTROPHILS # 5.2 10^3/uL (1.5-8.5); NEUTROPHILS % 77.6 % (36.0-66.0); PLATELET COUNT, AUTOMATED 105 10^3/uL (150-450); RED BLOOD COUNT 2.56 10^6/uL (4.00-5.40); WHITE BLOOD COUNT 6.7 10^3/uL (4.0-10.0)
[2019-11-13 16:41] LABS: ALT/SGPT 21 U/L (12-78); BILIRUBIN,TOTAL 0.5 MG/DL (0.2-1.0); BLOOD UREA NITROGEN 13 MG/DL (7-18); CALCIUM LEVEL 8.8 MG/DL (8.8-10.2); CARBON DIOXIDE LEVEL 28 MEQ/L (21-32); CHLORIDE LEVEL 101 MEQ/L (98-107); CREATININE FOR GFR 0.54 MG/DL (0.55-1.30); GLOMERULAR FILTRATION RATE > 60.0 (>45); GLUCOSE, FASTING 93 MG/DL (70-100); POTASSIUM SERUM 3.4 MEQ/L (3.5-5.1); SODIUM LEVEL 136 MEQ/L (136-145); TOTAL PROTEIN 6.2 GM/DL (6.4-8.2)
[2019-11-13] MEDS ORDERED: ONDANSETRON 4 MG TAB PO PRN (20:00)
[2019-11-13] MEDS ORDERED: ULTRACET TAB PO PRN (20:00)
--- NOTE | 2019-11-13 20:10 | HPEPDOC ---
General Date of Admission 11/13/19 Date of Service: Nov 13, 2019 Chief Complaint The patient is a 59-year-old female admitted with a reason for visit of Lung Pain. 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 Patient stated that her pain became progressively worse and she can not longer tolerate. Her home pain management did not drink relief for her. Patient supposed to get palliative radiation however radiation treatment in the hospital not available for next 10 days. Labs pertinent for anemia with hemoglobin 8.4 and hypokalemia of 3.4. Patient denied fever, chills, nausea, vomiting, palpitations, diarrhea or dysuri a Home Medications Scheduled Clopidogrel Bisulfate (Clopidogrel) 75 Mg Tablet, 75 MG PO QHS, (Reported) Ergocalciferol (Vitamin D2) (Vitamin D2) 50,000 Units Cap, 50,000 UNITS PO 1XWK, (Reported) SUNDAY AT QHS Lidocaine (Lidocaine) 5% Adh..patch, 1 PATCH TOP QPM, (Reported) APPLIED TO LEFT SIDE Sennosides/Docusate Sodium (Sm Senna-S Tablet) 1 Each Tablet, 1 TAB PO QHS, (Reported) Sertraline HCl (Sertraline HCl) 50 Mg Tab, 25 MG PO QHS, (Reported) Scheduled PRN Oxycodone HCl (Oxycodone HCl) 5 Mg Tablet, 10 MG PO Q4H PRN for PAIN, (Reported) Allergies Coded Allergies: No Known Allergies (Unverified , 08/01/18) Past Medical History Medical History 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 History of hep C from a blood transfusion / esophageal varices and hepatomegaly PAD Vitamin D deficiency Dyslipidemia Port-A-Cath placement Cholecystectomy Surgical History Port-A-Cath placement Cholecystectomy Family History I personally reviewed family history and found not pertinent Social History * Smoker: current smoker Alcohol: Denies Drugs: denies A-FIB/CHADSVASC A-FIB History Current/History of A-Fib/PAF?: No Current PO Anticoag Therapy: No Review of Systems Constitutional: Denies: Chills, Fever Eyes: Denies: Pain ENT: Denies: Head Aches Skin: Denies: Rash, Lesions Pulmonary: Denies: Cough Cardiovascular: Denies: Palpitations Gastrointestinal: Denies: Nausea, Vomiting Genitourinary: Denies: Dysuria Hematologic: Denies: Bruising Endocrine: Denies: Polydipsia Musculoskeletal: Reports: Back Pain Neurological: Denies: Weakness Psych: Reports: Anxiety Physical Examination General Exam: Positive: Alert, Cooperative Eye Exam: Positive: PERRLA ENT Exam: Positive: Atraumatic Neck Exam: Positive: Supple; Negative: JVD Chest Exam: Positive: Diminished Heart Exam: Positive: Rate Normal Telemetry: Positive: No significant arrhythmia Abdomen Exam: Positive: Normal bowel sounds Extremity Exam: Positive: Clubbing; Negative: Cyanosis Skin Exam: Positive: Nl turgor and temperature Neuro Exam: Positive: Strength at 5/5 X4 ext, Cranial Nerves 3-12 NL Psych Exam: Positive: Anxiety; Negative: Mental status NL Vital Signs Vital Signs Date Time Temp Pulse Resp B/P (MAP) Pulse Ox O2 Delivery O2 Flow Rate FiO2 11/13/19 19:45 98.2 98 18 122/69 (86) Room Air 11/13/19 19:44 100 Laboratory Data Labs 24H Laboratory Tests 2 11/13/19 16:05: Immature Granulocyte % (Auto) 0.9, Neutrophils (%) (Auto) 77.6H, Lymphocytes (%) (Auto) 8.8L, Monocytes (%) (Auto) 12.3H, Eosinophils (%) (Auto) 0.1, Basophils (%) (Auto) 0.3, Neutrophils # (Auto) 5.2, Lymphocytes # (Auto) 0.6L, Monocytes # (Auto) 0.8, Eosinophils # (Auto) 0.0, Basophils # (Auto) 0.0, Nucleated Red Blood Cells % (auto) 0.0, Anion Gap 7L, Glomerular Filtration Rate > 60.0, Calcium Level 8.8, Total Bilirubin 0.5, Aspartate Amino Transf (AST/SGOT) 43H, Alanine Aminotransferase (ALT/SGPT) 21, Alkaline Phosphatase 94, Total Protein 6.2L, Albumin 3.0L, Albumin/Globulin Ratio 0.9L CBC/BMP Laboratory Tests 11/13/19 16:05 Assessment/Plan Patient is 59 years old female 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 Patient stated that her pain became progressively worse and she can not longer tolerate. Her home pain management did not drink relief for her. Patient supposed to get palliative radiation however radiation treatment in the hospital not available for next 10 days. Labs pertinent for anemia with hemoglobin 8.4 and hypokalemia of 3.4. Patient denied fever, chills, nausea, vomiting, palpitations, diarrhea or dysuria Problems (1) Uncontrolled pain Status: Acute Problem Text: Continue pain management Dr. Williamson will see patient tomorrow (2) Stage 4 lung cancer Status: Acute Problem Text: Follow-up with oncologist in the outpatient settings Plan / VTE VTE Prophylaxis Ordered?: Yes MARYLU QUEVEDO DO Nov 13, 2019 20:10
[2019-11-13] MEDS ORDERED: POTASSIUM CHLORIDE 10 MEQ SR TABLET PO ONE (21:00)
[2019-11-13] MEDS ORDERED: MORPHINE 15 MG SA TAB PO SCH (21:00)
[2019-11-13] MEDS: SENOKOT S TAB PO SCH (21:12)
[2019-11-13] MEDS: SERTRALINE HCL 25 MG TABLET PO SCH (21:12)
[2019-11-13] MEDS: LIDOCAINE 5% (LIDODERM) PATCH TOP SCH (21:13)
[2019-11-13] MEDS: CLOPIDOGREL 75 MG TAB PO SCH (21:13)
[2019-11-13 22:00] VITALS: BP 134/64
--- NOTE | 2019-11-13 22:55 | REP ---
CHEST, SINGLE VIEW: Single view of the chest is performed and compared to prior study of 11/08/2019. Left basilar infiltrate and left pleural effusion appear essentially unchanged. Right lung remains clear. Heart and mediastinum are unchanged. Right central venous catheter is again noted. Drainage catheter again projects over the left lower hemithorax. Electronically Signed by Nestor Chance MD 11/17/2019 09:11 A
[2019-11-13] MEDS: MORPHINE 2 MG/ML 1ML VIAL (J2270) IV PRN (23:35)
[2019-11-14] MEDS: MORPHINE 2 MG/ML 1ML VIAL (J2270) IV PRN ×5 (03:46→21:40)
[2019-11-14 06:00] VITALS: BP_SYST 118; BP_SYST 134; BP_DIAS 64; BP_DIAS 68
[2019-11-14] MEDS: PERCOCET 5MG/325MG TAB PO PRN ×3 (09:31→23:02)
[2019-11-14] MEDS: MORPHINE 15 MG SA TAB PO SCH ×2 (09:32→20:10)
[2019-11-14] MEDS: ENOXAPARIN 40MG/0.4ML SYRINGE (J1650 PER 10MG) SC SCH (09:46)
[2019-11-14] MEDS ORDERED: POTASSIUM CHLORIDE 10 MEQ SR TABLET PO ONE (10:00)
[2019-11-14 11:12] LABS: HEMATOCRIT 25.8 % (36.0-47.0); HEMOGLOBIN 8.4 g/dl (12.0-15.5); MEAN CORPUSCULAR HGB CONC 32.6 g/dl (32.0-36.5); MEAN CORPUSCULAR VOLUME 104.5 fl (80.0-96.0); RED BLOOD COUNT 2.47 10^6/uL (4.00-5.40); WHITE BLOOD COUNT 6.9 10^3/uL (4.0-10.0)
[2019-11-14 11:13] LABS: PLATELET COUNT, AUTOMATED 93 10^3/uL (150-450)
[2019-11-14] MEDS: SODIUM CHLORIDE 0.9% INJ 10 ML SYR IV PRN ×3 (13:31→21:40)
[2019-11-14 14:00] VITALS: BP 122/69
[2019-11-14] MEDS: LORazepam 1 MG TAB PO PRN ×2 (16:34→23:01)
--- NOTE | 2019-11-14 19:03 | IPNPDOC ---
Date Seen The patient was seen on 11/14/19. Progress Note SUBJECTIVE: Patient reports having significant pain most of the time. Does not look too uncomfortable however. Denies any other complaints apart from diffuse pain, worst over the L. side of the back/flank. Afebrile overnight. OBJECTIVE PHYSICAL EXAMINATION: VITAL SIGNS: Please see below. General: Alert, no significant distress, significant alopecia Eyes: Normal sclera, EOMI HENT: Atraumatic Cardiovascular: Normal rate, normal rhythm. Pulmonary: Clear to auscultation b/l, no wheezing GI: Soft, nontender, nondistended Skin: Warm and dry Neuro: CN grossly intact. No focal deficits. Generalized weakness. Psych: oriented x 3 LABORATORY DATA, IMAGING STUDIES, MICROBIOLOGY: Please see below. DVT prophylaxis ordered?: Lovenox ASSESSMENT AND PLAN: 1. Intractable pain 2/2 metastatic lung cancer w/ chronic pleural effusion - On only oxycodone at home. Was on percocet and MS contin here along with IV morphine with she said helps but dose not take her pain away. - Ultracet ordered, reportedly may have worked last night. - Follows with oncology in [place], getting radiating therapy treatment here with Dr. Whitt. - Discussed with Dr. Whitt, plan on resuming RAD therapy on Sunday and can go home if she is able. - Patient reports in too much pain and think that she is benefiting from IV morphine. - Will keep with plan to discharge Sunday or Sunday. 2. Hep C - from blood transfusion in the past. DISPOSITION: Home likely Sunday or Sunday. VS, I&O, 24H, Fishbone Vital Signs/I&O Vital Signs Date Time Temp Pulse Resp B/P (MAP) Pulse Ox O2 Delivery O2 Flow Rate FiO2 11/14/19 17:45 16 11/14/19 14:00 98.0 80 122/69 (86) 94 Room Air I&O- Last 24 Hours up to 6 AM 11/14/19 06:00 Intake Total 0 ml Output Total 0 ml Balance 0 ml Laboratory Data 24H LABS Laboratory Tests 2 11/14/19 00:00: 11/14/19 10:43: Nucleated Red Blood Cells % (auto) 0.0, Immature Platelet Fraction 7.1 CBC/BMP Laboratory Tests 11/14/19 10:43 MARTIN BALDERAS MD Nov 14, 2019 19:03
[2019-11-14] MEDS: SENOKOT S TAB PO SCH (20:09)
[2019-11-14] MEDS: CLOPIDOGREL 75 MG TAB PO SCH (20:09)
[2019-11-14] MEDS: SERTRALINE HCL 25 MG TABLET PO SCH (20:09)
[2019-11-14] MEDS: ULTRACET TAB PO PRN (20:11)
[2019-11-14] MEDS: LIDOCAINE 5% (LIDODERM) PATCH TOP SCH (20:13)
[2019-11-14 22:00] VITALS: BP 129/65
[2019-11-15] MEDS: ULTRACET TAB PO PRN ×3 (05:35→18:44)
[2019-11-15] MEDS: PERCOCET 5MG/325MG TAB PO PRN ×3 (05:36→18:43)
[2019-11-15 06:00] VITALS: BP 129/63
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
[2019-11-15] MEDS: MORPHINE 15 MG SA TAB PO SCH ×2 (08:52→20:09)
[2019-11-15] MEDS: SODIUM CHLORIDE 0.9% INJ 10 ML SYR IV SCH (08:55)
[2019-11-15] MEDS: ENOXAPARIN 40MG/0.4ML SYRINGE (J1650 PER 10MG) SC SCH (08:55)
[2019-11-15] MEDS: MORPHINE 2 MG/ML 1ML VIAL (J2270) IV PRN (09:03)
[2019-11-15 14:00] VITALS: BP 126/62
[2019-11-15] MEDS: SODIUM CHLORIDE 0.9% INJ 10 ML SYR IV PRN ×2 (14:58→23:32)
--- NOTE | 2019-11-15 15:00 | IPNPDOC ---
Date Seen The patient was seen on 11/15/19. Progress Note SUBJECTIVE: Patient states that she is tired all the time. Offered PT for more ambulation but she prefers not to while she is here. Pain reportedly better off of the Percocet and transitioned to Ultracet. OBJECTIVE PHYSICAL EXAMINATION: VITAL SIGNS: Please see below. General: Alert, no significant distress, significant alopecia Eyes: Normal sclera, EOMI HENT: Atraumatic Cardiovascular: Normal rate, normal rhythm. Pulmonary: Clear to auscultation b/l, no wheezing GI: Soft, nontender, nondistended Skin: Warm and dry Neuro: CN grossly intact. No focal deficits. Generalized weakness. Psych: oriented x 3 LABORATORY DATA, IMAGING STUDIES, MICROBIOLOGY: Please see below. DVT prophylaxis ordered?: Lovenox ASSESSMENT AND PLAN: 1. Intractable pain 2/2 metastatic lung cancer w/ chronic pleural effusion - On only oxycodone at home. Was on percocet and MS contin here along with IV morphine with she said helps but dose not take her pain away. - Ultracet ordered, reportedly working better. - Follows with oncology in [place], getting radiating therapy treatment here with Dr. Whitt. - Discussed with Dr. Whitt, plan on resuming RAD therapy on Sunday and can go home if she is able. - Patient reports in too much pain and think that she is benefiting from IV morphine. - Will keep with plan to discharge Sunday or Sunday. 2. Hep C - from blood transfusion in the past. DISPOSITION: Home likely Sunday or Sunday. VS, I&O, 24H, Fishbone Vital Signs/I&O Vital Signs Date Time Temp Pulse Resp B/P (MAP) Pulse Ox O2 Delivery O2 Flow Rate FiO2 11/15/19 13:30 16 11/15/19 06:06 92 96 11/15/19 06:05 Room Air 11/15/19 06:00 98.1 129/63 (85) I&O- Last 24 Hours up to 6 AM 11/15/19 06:00 Intake Total 1780 ml Output Total 0 ml Balance 1780 ml MARTIN BALDERAS MD Nov 15, 2019 15:00
[2019-11-15 15:40] LABS: BLOOD UREA NITROGEN 19 MG/DL (7-18); CALCIUM LEVEL 8.7 MG/DL (8.8-10.2); CARBON DIOXIDE LEVEL 28 MEQ/L (21-32); CHLORIDE LEVEL 103 MEQ/L (98-107); GLOMERULAR FILTRATION RATE > 60.0 (>45); GLUCOSE, FASTING 90 MG/DL (70-100); MAGNESIUM LEVEL 1.5 MG/DL (1.8-2.4); POTASSIUM SERUM 3.8 MEQ/L (3.5-5.1); SODIUM LEVEL 137 MEQ/L (136-145)
[2019-11-15] MEDS: LIDOCAINE 5% (LIDODERM) PATCH TOP SCH (20:06)
[2019-11-15] MEDS: SERTRALINE HCL 25 MG TABLET PO SCH (20:07)
[2019-11-15] MEDS: SENOKOT S TAB PO SCH (20:07)
[2019-11-15] MEDS: CLOPIDOGREL 75 MG TAB PO SCH (20:08)
[2019-11-15] MEDS: LORazepam 1 MG TAB PO PRN (20:08)
[2019-11-15 22:00] VITALS: BP 135/65
[2019-11-15] MEDS: MORPHINE 4 MG/ML 1ML VIAL/SYRINGE (J2270) IV PRN (23:32)
[2019-11-16] MEDS: PERCOCET 5MG/325MG TAB PO PRN ×3 (05:57→18:47)
[2019-11-16 06:00] VITALS: BP 136/65
[2019-11-16] MEDS: LORazepam 1 MG TAB PO PRN (08:17)
[2019-11-16] MEDS: MORPHINE 15 MG SA TAB PO SCH ×2 (08:19→20:33)
[2019-11-16] MEDS ORDERED: MAG SULF 1GM/100ML (MAG RUN) 1 GM in IV 1 EA IV ONE (09:00)
[2019-11-16] MEDS: ENOXAPARIN 40MG/0.4ML SYRINGE (J1650 PER 10MG) SC SCH (09:00)
--- NOTE | 2019-11-16 09:21 | REP ---
REASON FOR EXAM: Followup. COMPARISON EXAM: 10/15/2019 Opacities in the left lower lung field have increased somewhat. The tip of the Mediport device is unchanged. Right lung is clear and stable. There is no change in the osseous structures. IMPRESSION: Possible increased left lower lobe opacity, effusion/pneumonia/atelectasis. Electronically Signed by Homer Garcia DO 11/16/2019 09:38 A
[2019-11-16] MEDS: SODIUM CHLORIDE 0.9% INJ 10 ML SYR IV SCH (11:12)
[2019-11-16] MEDS: ULTRACET TAB PO PRN ×2 (12:39→18:48)
--- NOTE | 2019-11-16 13:05 | IPNPDOC ---
Date Seen The patient was seen on 11/16/19. Progress Note SUBJECTIVE: Patient continues to complain of persistent pain. Think that the pain meds we are giving are helping with does not resolve her pain. Inquired about when she would be discharged and states that she should live in the hospital, does not want to go back and forth for treatment. Drainage from her Pleurx catheter performed this morning. 250 cc were drained, stopped after complaints of pain after that amount. OBJECTIVE PHYSICAL EXAMINATION: VITAL SIGNS: Please see below. General: Alert, significant alopecia and lethargy Eyes: Normal sclera, EOMI HENT: Atraumatic Cardiovascular: Normal rate, normal rhythm. Pulmonary: Clear to auscultation b/l, no wheezing GI: Soft, nontender, nondistended Skin: Warm and dry Neuro: CN grossly intact. No focal deficits. Generalized weakness. Psych: oriented x 3 LABORATORY DATA, IMAGING STUDIES, MICROBIOLOGY: Please see below. DVT prophylaxis ordered?: Lovenox ASSESSMENT AND PLAN: 1. Intractable pain 2/2 metastatic lung cancer w/ chronic pleural effusion - On only oxycodone at home. Was on percocet and MS contin here along with IV morphine with she said helps but dose not take her pain away. - Ultracet ordered, reportedly working better. - Follows with oncology in [place], getting radiating therapy treatment here with Dr. Whitt. - Discussed with Dr. Whitt, plan on resuming RAD therapy on Sunday and can go home if she is able. - Patient reports in too much pain and think that she is benefiting from IV morphine. - Will keep with plan to discharge Sunday or Sunday if possible. Patient will benefit from Palliative care referral upon discharge due to persistent and severe pain. - Pleurx catheter to be drained every 2-3 days, patient usually self drains at home. 2. Hep C - from blood transfusion in the past. DISPOSITION: Home likely Sunday or Sunday. VS, I&O, 24H, Fishbone Vital Signs/I&O Vital Signs Date Time Temp Pulse Resp B/P (MAP) Pulse Ox O2 Delivery O2 Flow Rate FiO2 11/16/19 12:39 16 11/16/19 06:00 98.6 92 136/65 (88) 96 Room Air I&O- Last 24 Hours up to 6 AM 11/16/19 06:00 Intake Total 1400 ml Balance 1400 ml Laboratory Data 24H LABS Laboratory Tests 2 11/15/19 15:00: Anion Gap 6L, Glomerular Filtration Rate > 60.0, Calcium Level 8.7L, Magnesium Level 1.5L CBC/BMP Laboratory Tests 11/15/19 15:00 MARTIN BALDERAS MD Nov 16, 2019 13:05
[2019-11-16 14:00] VITALS: BP 133/61
[2019-11-16] MEDS ORDERED: FENTANYL REMOVAL DOCUMENTATION MISC XX SCH (17:00)
[2019-11-16] MEDS: MORPHINE 4 MG/ML 1ML VIAL/SYRINGE (J2270) IV PRN ×2 (19:35→23:43)
[2019-11-16] MEDS: SENOKOT S TAB PO SCH (20:33)
[2019-11-16] MEDS: SERTRALINE HCL 25 MG TABLET PO SCH (20:33)
[2019-11-16] MEDS: CLOPIDOGREL 75 MG TAB PO SCH (20:33)
[2019-11-16] MEDS: LIDOCAINE 5% (LIDODERM) PATCH TOP SCH (20:34)
[2019-11-16 22:00] VITALS: BP 133/62
[2019-11-17] MEDS: PERCOCET 5MG/325MG TAB PO PRN (02:14)
[2019-11-17] MEDS: ULTRACET TAB PO PRN ×2 (05:35→19:02)
[2019-11-17] MEDS: SODIUM CHLORIDE 0.9% INJ 10 ML SYR IV PRN ×2 (05:36→15:56)
[2019-11-17 06:00] VITALS: BP 137/62
[2019-11-17] MEDS ORDERED: MAG SULF 1GM/100ML (MAG RUN) 1 GM in IV 1 EA IV ONE (07:45)
[2019-11-17] MEDS: MORPHINE 15 MG SA TAB PO SCH ×2 (08:01→21:45)
[2019-11-17] MEDS: ENOXAPARIN 40MG/0.4ML SYRINGE (J1650 PER 10MG) SC SCH (08:02)
[2019-11-17] MEDS: SODIUM CHLORIDE 0.9% INJ 10 ML SYR IV SCH (08:03)
[2019-11-17] MEDS: MORPHINE 4 MG/ML 1ML VIAL/SYRINGE (J2270) IV PRN ×3 (10:44→20:12)
[2019-11-17 14:00] VITALS: BP 133/61
--- NOTE | 2019-11-17 16:47 | IPNPDOC ---
Date Seen The patient was seen on 11/17/19. Progress Note SUBJECTIVE: Patient continues to complain of pain, better than yesterday however. Went for radiation therapy today but was not able to lie flat due to pain. Rescheduled for tomorrow with plan to give pain medication prior to treatment session. Asked if she can be sedated for the procedure like a dental procedure. Also want to stay in the hospital while continuing undergoing treatment. Discussed with patient regarding Palliative care referral, which is distinct from hospice, providing support care for severely ill patients and managing pain. Patient is agreeable. OBJECTIVE PHYSICAL EXAMINATION: VITAL SIGNS: Please see below. General: Alert, malaise, significant alopecia and lethargy Eyes: Normal sclera, EOMI HENT: Atraumatic Cardiovascular: Normal rate, normal rhythm. Pulmonary: Clear to auscultation b/l, no wheezing GI: Soft, nontender, nondistended Skin: Warm and dry Neuro: CN grossly intact. No focal deficits. Generalized weakness. Psych: oriented x 3 LABORATORY DATA, IMAGING STUDIES, MICROBIOLOGY: Please see below. DVT prophylaxis ordered?: Lovenox ASSESSMENT AND PLAN: 1. Intractable pain 2/2 metastatic lung cancer w/ chronic pleural effusion - On only oxycodone at home. Was on percocet and MS contin here along with IV morphine with she said helps but dose not take her pain away. - Ultracet ordered, reportedly working better. - Follows with oncology in [place], getting palliative radiating therapy treatment here with Dr. Williamson. - Pleurx catheter to be drained every 2-3 days, patient usually self drains at home. - Palliative care referral placed. Dr. Williamson's note reviewed, appear that hospice had been brought up but patient does not wish to pursue at this time. - I suspect that hospice may be a more appropriate course, prognosis appear to be very poor. - Pain medication adjusted today. 2. Hep C - from blood transfusion in the past. DISPOSITION: Possible discharge home in the next 24-48 hours. VS, I&O, 24H, Fishbone Vital Signs/I&O Vital Signs Date Time Temp Pulse Resp B/P (MAP) Pulse Ox O2 Delivery O2 Flow Rate FiO2 11/17/19 15:53 18 11/17/19 14:00 97.5 78 133/61 (85) 94 Room Air I&O- Last 24 Hours up to 6 AM 11/17/19 06:00 Intake Total 460 ml Output Total 250 ml Balance 210 ml Laboratory Data 24H LABS Laboratory Tests 2 11/17/19 05:34: Magnesium Level 1.7L MARTIN BALDERAS MD Nov 17, 2019 16:47
--- NOTE | 2019-11-17 17:10 | RADONC ---
RADIATION ONCOLOGY SIMULATION NOTE DATE: 11/17/2019 CHART NUMBER: [id number] SIMULATION NOTE: Ms. Turcios was taken to the CT scan for CT simulation of her chest wall field. We spent 40+ minutes attempting to find a comfortable position that the patient could be treated in. She was unable to lie flat. We then tried with a mattress pad. She was unable to lay on her stomach. We did get her down on the mattress but she developed more pain and had to jump up before we could accomplish the CT. Following this I had a lengthy discussion with the patient once again about hospice care. Clearly this is end-stage disease and the likelihood of achieving any significant palliation is minimal. Indeed after reviewing the CT scans the jiang will be rather large and I am not hopeful. The patient said she would think about hospice and at this time is expressing concerns and anger towards her medical oncologists in [place]. I have once again explained to her that this is not curable and it may be preferable to be as an inpatient at hospice where she can be kept comfortable and visited by her family. The patient wishes to retry radiation simulation and I have instructed her to talk to her hospitalist about giving more pain medication for her visit down when we schedule her for simulation perhaps tomorrow. In the meantime, the patient needs better pain management.
[2019-11-17] MEDS: LIDOCAINE 5% (LIDODERM) PATCH TOP SCH (21:00)
[2019-11-17 21:09] VITALS: BP 135/64
[2019-11-17] MEDS: CLOPIDOGREL 75 MG TAB PO SCH (21:45)
[2019-11-17] MEDS: SENOKOT S TAB PO SCH (21:45)
[2019-11-17] MEDS: SERTRALINE HCL 25 MG TABLET PO SCH (21:45)
[2019-11-18] MEDS: MORPHINE 4 MG/ML 1ML VIAL/SYRINGE (J2270) IV PRN ×3 (00:13→10:18)
[2019-11-18] MEDS: oxyCODONE 5MG TAB PO PRN ×2 (03:11→14:29)
[2019-11-18] MEDS: SODIUM CHLORIDE 0.9% INJ 10 ML SYR IV PRN (04:52)
[2019-11-18 04:57] VITALS: BP 150/73
[2019-11-18] MEDS: ULTRACET TAB PO PRN ×3 (08:21→23:09)
[2019-11-18] MEDS: MORPHINE 15 MG SA TAB PO SCH ×2 (08:21→20:57)
[2019-11-18] MEDS: SODIUM CHLORIDE 0.9% INJ 10 ML SYR IV SCH (08:22)
[2019-11-18] MEDS: ENOXAPARIN 40MG/0.4ML SYRINGE (J1650 PER 10MG) SC SCH (08:22)
[2019-11-18] MEDS ORDERED: LORazepam 2 MG/ML VIAL IV ONE (09:00)
--- NOTE | 2019-11-18 16:28 | RADONC ---
RADIATION ONCOLOGY SIMULATION NOTE: DATE: 11/18/2019 Chart #[id number] - [id number] Ms. Turcios came down today once again for simulation of her chest wall field. This time, she was medicated more heavily with morphine and was able to tolerate simulation. We were able to complete CT simulation of her chest wall field. A treatment plan is being run and radiation will begin subsequently. Once again she will need to be adequately treated with pain medication for each of her treatments. I was physically present throughout the course of CT simulation.
--- NOTE | 2019-11-18 18:31 | IPNPDOC ---
Date Seen The patient was seen on 11/18/19. Progress Note SUBJECTIVE: Patient seem more sleepy today. Oxycone dose was increased yesterday. She could tolerate today's RT. no acute events reported overnight. OBJECTIVE PHYSICAL EXAMINATION: VITAL SIGNS: Please see below. General: Alert, malaise, significant alopecia and lethargy Eyes: Normal sclera, EOMI HENT: Atraumatic Cardiovascular: Normal rate, normal rhythm. Pulmonary: Clear to auscultation b/l, no wheezing GI: Soft, nontender, nondistended Skin: Warm and dry Neuro: CN grossly intact. No focal deficits. Generalized weakness. Psych: oriented x 3 LABORATORY DATA, IMAGING STUDIES, MICROBIOLOGY: Please see below. DVT prophylaxis ordered?: Lovenox ASSESSMENT AND PLAN: 1. Intractable pain 2/2 metastatic lung cancer w/ chronic pleural effusion - On only oxycodone at home. Was on percocet and MS contin here along with IV morphine with she said helps but dose not take her pain away. - Ultracet ordered, reportedly working better. - Follows with oncology in [place], getting palliative radiating therapy treatment here with Dr. Williamson. - Pleurx catheter to be drained every 2-3 days, patient usually self drains at home. - Palliative care referral placed. Dr. Williamson's note reviewed, appear that hospice had been brought up but patient does not wish to pursue at this time. - I suspect that hospice may be a more appropriate course, prognosis appear to be very poor. 2. Hep C - from blood transfusion in the past. DISPOSITION: Possible discharge home in the next 24-48 hours. VS, I&O, 24H, Fishbone Vital Signs/I&O Vital Signs Date Time Temp Pulse Resp B/P (MAP) Pulse Ox O2 Delivery O2 Flow Rate FiO2 11/18/19 16:43 18 11/18/19 15:43 62 146/72 99 Room Air 11/18/19 04:57 98.0 I&O- Last 24 Hours up to 6 AM 11/18/19 06:00 Intake Total 1210 ml Output Total 75 ml Balance 1135 ml Laboratory Data 24H LABS Laboratory Tests 2 11/18/19 05:01: Magnesium Level 1.8 MARTIN BALDERAS MD Nov 18, 2019 18:31
[2019-11-18 20:30] VITALS: BP 115/74
[2019-11-18] MEDS: LIDOCAINE 5% (LIDODERM) PATCH TOP SCH (20:56)
[2019-11-18] MEDS: SENOKOT S TAB PO SCH (20:57)
[2019-11-18] MEDS: CLOPIDOGREL 75 MG TAB PO SCH (20:57)
[2019-11-18] MEDS: SERTRALINE HCL 25 MG TABLET PO SCH (20:57)
[2019-11-19] MEDS: oxyCODONE 5MG TAB PO PRN ×2 (00:55→12:18)
[2019-11-19] MEDS: MORPHINE 4 MG/ML 1ML VIAL/SYRINGE (J2270) IV PRN (04:57)
[2019-11-19 05:04] VITALS: BP 119/58
[2019-11-19] MEDS: ULTRACET TAB PO PRN ×3 (07:44→21:41)
[2019-11-19] MEDS: ENOXAPARIN 40MG/0.4ML SYRINGE (J1650 PER 10MG) SC SCH (08:34)
[2019-11-19] MEDS: SODIUM CHLORIDE 0.9% INJ 10 ML SYR IV SCH (08:35)
[2019-11-19] MEDS: MORPHINE 15 MG SA TAB PO SCH (08:36)
[2019-11-19] MEDS ORDERED: NALOXONE INJ 0.4MG/1ML VIAL (J2310 PER 1MG) IV PRN (12:30)
[2019-11-19] MEDS ORDERED: MORPHINE 15 MG SA TAB PO ONE (13:00)
[2019-11-19 14:30] VITALS: BP 117/72
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
[2019-11-19] MEDS: MORPHINE 30 MG TAB **MSIR PO PRN ×2 (17:50→23:53)
[2019-11-19] MEDS: LIDOCAINE 5% (LIDODERM) PATCH TOP SCH (20:29)
[2019-11-19] MEDS: CLOPIDOGREL 75 MG TAB PO SCH (20:29)
[2019-11-19] MEDS: SENOKOT S TAB PO SCH (20:29)
[2019-11-19] MEDS: SERTRALINE HCL 25 MG TABLET PO SCH (20:29)
[2019-11-19] MEDS ORDERED: MORPHINE 15 MG SA TAB PO SCH (21:00)
[2019-11-19 21:42] VITALS: BP 122/58
[2019-11-20] MEDS: MORPHINE 30 MG TAB **MSIR PO PRN (04:14)
[2019-11-20 06:16] VITALS: BP 122/59
[2019-11-20] MEDS ORDERED: MORPHINE 30 MG SA TAB PO SCH (09:45)
[2019-11-20] MEDS: MORPHINE 4 MG/ML 1ML VIAL/SYRINGE (J2270) IV PRN (09:53)
[2019-11-20] MEDS: SODIUM CHLORIDE 0.9% INJ 10 ML SYR IV SCH (09:54)
[2019-11-20] MEDS: ENOXAPARIN 40MG/0.4ML SYRINGE (J1650 PER 10MG) SC SCH (09:54)
[2019-11-22] MEDS ORDERED: LORazepam 1 MG TAB ONE (06:07)
[2019-11-22] MEDS ORDERED: CEPACOL LOZENGE ONE (06:07)
[2019-11-22] MEDS ORDERED: MORPHINE 30 MG TAB **MSIR ONE (06:07)
[2019-11-22] MEDS ORDERED: ENOXAPARIN 40MG/0.4ML SYRINGE (J1650 PER 10MG) ONE (10:34)
[2019-11-22] MEDS ORDERED: MORPHINE 30 MG SA TAB ONE (10:34)
== END 2019-11-21 12:00 | disposition home or self-care (01) | DRG 861 ==
LOC: M ED 14:21 → M ED INP 19:52 → ENRESERV 20:04 → M MS5PR 20:33
PROVIDERS: ADMIT Internal Medicine; ATTEND General Practice
DX: G89.3 Neoplasm related pain (acute) (chronic) (principal); C34.90 Malignant neoplasm of unspecified part of unspecified bronchus or lung; B18.2 Chronic viral hepatitis C; D64.9 Anemia, unspecified; E55.9 Vitamin D deficiency, unspecified; E87.6 Hypokalemia; Z79.899 Other long term (current) drug therapy; E78.5 Hyperlipidemia, unspecified